=== PATIENT | male | born 1945 | race Caucasian/White ===

== ENCOUNTER 2018-11-29 09:06 | Emergency (ER) | payer OTHER ==
[~2018-11-29] VITALS: Ht 182.9 cm; Wt 75.0 kg
[2018-11-29] MEDS ORDERED: LISI40TA PO (09:26)
[2018-11-29] MEDS ORDERED: AMLO10TA5 PO (09:26)
[2018-11-29] MEDS ORDERED: ATEN100T PO (09:26)
[2018-11-29] MEDS ORDERED: PROAAER10 INH (09:26)
--- NOTE | 2018-11-29 10:10 | REP ---
Clinical: Pain . Technique: AP, lateral, bilateral oblique views left ankle . Findings: No acute fracture or dislocation. Skeletal structures and joint spaces are intact and normal. Ankle mortise appears stable. No subcutaneous emphysema or radiodense foreign body. Impression: Normal age-appropriate left ankle radiograph series. Electronically Signed by Davon Carvajal MD 11/29/2018 10:01 A
--- NOTE | 2018-11-29 10:11 | REP ---
Clinical: Left knee pain. Technique: AP, lateral, bilateral oblique and sunrise views of the left knee. Findings: Age-related osteopenia is appreciated. The tibiofemoral joint space along with the distal femur and proximal tibia appear relatively normal. Lateral and sunrise views demonstrate mild decreased patellofemoral joint space along with superior and lateral marginal spurring of the patella and anterior fraying suggesting mild arthritic changes and early patellar tendinopathy. No effusion. No acute fracture dislocation. Findings: Degenerative changes primarily involving the patella and associated joint space. Electronically Signed by Davon Carvajal MD 11/29/2018 10:03 A
[2018-11-29] MEDS ORDERED: ACETAMINOPHEN 325 MG TAB PO ONE (10:15)
[2018-11-29] MEDS ORDERED: MOBI4TAB PO (10:53)
[2018-11-29 11:01] VITALS: BP 111/55
== END 2018-11-29 11:06 | disposition home or self-care (01) ==
LOC: M ED 09:06
DX: L98.9 Disorder of the skin and subcutaneous tissue, unspecified (principal); M17.12 Unilateral primary osteoarthritis, left knee; I10 Essential (primary) hypertension; J44.9 Chronic obstructive pulmonary disease, unspecified; F17.200 Nicotine dependence, unspecified, uncomplicated; Z79.899 Other long term (current) drug therapy

== ENCOUNTER 2019-01-11 12:25 | Inpatient (IN) | payer OTHER ==
[~2019-01-11] VITALS: Ht 182.9 cm; Wt 71.4 kg
[~2019-01-11 12:25] MED LIST: AMLO10TA5 PO; ATEN100T PO; LISI40TA PO; MOBI4TAB PO; PROAAER10 INH
[2019-01-11] MEDS ORDERED: NS 1,000 ML IV ONE ×2 (12:45→16:30)
[2019-01-11] MEDS ORDERED: TELM1TAB20 PO (12:47)
[2019-01-11] MEDS ORDERED: ATEN100T7 PO (12:47)
[2019-01-11 13:09] LABS: BASO % 0.3 % (0.0-1.0); EOS # 0.1 10^3/uL (0.0-0.50); EOS % 0.4 % (0.0-3.0); HEMATOCRIT 28.7 % (42.0-52.0); HEMOGLOBIN 8.6 g/dl (13.5-17.5); LYMPH # 1.1 10^3/uL (1.5-4.5); LYMPH % 7.9 % (24.0-44.0); MEAN CORPUSCULAR HEMOGLOBIN 24.4 pg (27.0-33.0); MEAN CORPUSCULAR VOLUME 81.5 fl (80.0-96.0); MONO % 6.9 % (0.0-5.0); NEUTROPHILS # 11.5 10^3/uL (1.8-7.7); NEUTROPHILS % 83.5 % (36.0-66.0); PLATELET COUNT, AUTOMATED 534 10^3/uL (150-450); RED BLOOD COUNT 3.52 10^6/uL (4.30-6.10); WHITE BLOOD COUNT 13.8 10^3/uL (4.0-10.0)
[2019-01-11 13:10] LABS: VENOUS BASE EXCESS -0.3 (-2.0-2.0); VENOUS HCO3 25.7 MEQ/L (23.0-27.0); VENOUS PARTIAL PRESSURE CO2 48.5 mmHg (38.0-50.0); VENOUS PARTIAL PRESSURE O2 32.1 mmHg (30.0-50.0); VENOUS PH 7.342 UNITS (7.330-7.430); VENOUS STANDARD HCO3 23.5 MEQ/L; VENOUS TOTAL CO2 27.2 MEQ/L (24.0-28.0)
--- NOTE | 2019-01-11 13:24 | REP ---
Portable chest, two AP semi upright views: Studies performed 12th 56 p.m. There are no comparisons. Lung reyes are hyperinflated. There are no infiltrates. No pleural effusions. There are small nodular densities throughout the lung reyes bilaterally, likely granulomas, however, the absence of comparison studies M unable to document stability, therefore, metastatic disease cannot be entirely dismissed. There is a bulla in the right apex. Cardiac size is normal. The chema, mediastinum, and skeletal structures are unremarkable. Impression: No acute cardiopulmonary findings. Multiple tiny nonspecific lung nodules as described. Right apical bulla. Electronically Signed by J Luis Coates MD 01/11/2019 01:16 P
[2019-01-11 13:50] LABS: ALBUMIN 2.9 GM/DL (3.2-5.2); ALT/SGPT 11 U/L (12-78); BILIRUBIN,DIRECT 0.3 MG/DL (0.0-0.2); BILIRUBIN,TOTAL 0.8 MG/DL (0.2-1.0); BLOOD UREA NITROGEN 21 MG/DL (7-18); CALCIUM LEVEL 8.7 MG/DL (8.8-10.2); CARBON DIOXIDE LEVEL 25 MEQ/L (21-32); CHLORIDE LEVEL 103 MEQ/L (98-107); CK-MB VALUE MASS < 1.0 NG/ML (<3.6); CPK CREATINE PHOSPHOKINASE 25 U/L (39-308); CREATININE FOR GFR 1.68 MG/DL (0.70-1.30); GLOMERULAR FILTRATION RATE 43.1 (>42); GLUCOSE, FASTING 112 MG/DL (70-100); SODIUM LEVEL 138 MEQ/L (136-145); TOTAL PROTEIN 7.2 GM/DL (6.4-8.2); TROPONIN I < 0.02 NG/ML (< 0.10)
[2019-01-11 13:51] LABS: OSMOLALITY SERUM 293 MOSM/KG (280-301)
[2019-01-11] MEDS ORDERED: ONDANSETRON 4MG/2ML VIAL (J2405) IV ONE (14:00)
[2019-01-11] MEDS ORDERED: GLUCAGON FOR INJ 1 MG VIAL (J1610) IV STA (15:12)
--- NOTE | 2019-01-11 16:03 | REP ---
SOFT-TISSUE NECK: 01/11/2019. Clinical history: Evaluate for possible food impaction. Findings: Two lateral and a single AP view were provided. The oropharynx is widely patent. Hypopharynx is patent. The epiglottis and its folds were intact. I see no definite mass or radiopaque food bolus. I do not see subglottic airway narrowing on the lateral view. No significant prevertebral swelling. There is cervical spondylosis of sparing only the C4-5 level. On the frontal view. There is very subtle proximal subglottic narrowing but not seen on the lateral projection. Some minor apical scarring bilaterally in the lung reyes. Impression: 1. Epiglottis and its folds are sharply defined in the hypopharynx, oropharynx and subglottic trachea without significant visible abnormality. No radiopaque food bolus visible. 2. Degenerative disc changes throughout the cervical spine, sparing only the C4-5 level. 3. Incidentally noted are atherosclerotic calcifications in both carotid bulb regions. Electronically Signed by Erich Matthews MD 01/11/2019 07:54 P
[2019-01-11] MEDS ORDERED: E-Z-HD 98% w/w 340GM SUSP BTL As Ordered ONE (16:13)
[2019-01-11] MEDS ORDERED: E-Z-GAS II EFFERVESCENT PACKET (SODIUM BICARB./CITRIC ACID/SIMETHICONE) As Ordered ONE (16:13)
[2019-01-11] MEDS ORDERED: E-Z-PAQUE 96% w/w SUSP 176GM BTL As Ordered ONE (16:13)
[2019-01-11] MEDS ORDERED: D5W/0.45% SODIUM CHLORIDE 1,000 ML IV SCH (18:15)
[2019-01-11 18:24] LABS: CALCIUM LEVEL 7.8 MG/DL (8.8-10.2); CREATININE FOR GFR 1.48 MG/DL (0.70-1.30); GLOMERULAR FILTRATION RATE 49.9 (>42); POTASSIUM SERUM 4.5 MEQ/L (3.5-5.1)
[2019-01-11] MEDS ORDERED: MOBI4TAB PO (18:39)
--- NOTE | 2019-01-11 18:51 | REP ---
Esophagram The procedure was performed under the direct supervision of Dr. Matthews. The images were reviewed with Dr. Matthews. The barium was given in the prone oblique position. The oral and pharyngeal stages of deglutition are unremarkable. In the distal esophagus there is an elongated, tight irregular stricture with food impaction. There is dilated esophagus above this. The stricture measures approximately 6 cm. There is extensive mucosal irregularity below the impaction. Recommend endoscopy for further evaluation. Impression: In the distal esophagus there is an elongated, tight, irregular stricture with food impaction. There is dilated esophagus above this. The stricture measures at least 6 cm. A mucosal lesion must be suspected. There is extensive mucosal irregularity below the impaction. Recommend endoscopy for further evaluation. 1.5 minutes of fluoro time was utilized for this procedure. Reviewed by JUAN RAMON Sandoval 01/11/2019 04:53 P Electronically Signed by Erich Matthews MD 01/11/2019 06:42 P
--- NOTE | 2019-01-11 19:23 | ECGEPIP ---
Stationary ECG Study [facility] - ED Test Date: 2019-01-11 Pat Name: JULEE FRAGA Department: Room: - Gender: M Pest Technician: shaun : 1945 Requested By: JESSICA MACIAS Order Number: [id number] Reading MD: Travon Arenas Measurements Intervals [place] Rate: 77 P: 93 [place]: 183 QRS: 78 QRSD: 108 T: 51 QT: 405 QTc: 458 Interpretive Statements SINUS RHYTHM WITH OCCASIONAL VENTRICULAR PREMATURE COMPLEXES INCOMPLETE RIGHT BUNDLE BRANCH BLOCK ST DEVIATION AND MODERATE T-WAVE ABNORMALITY, CONSIDER ANTERIOR ISCHEMIA NO PRIORS FOR COMPARISON Electronically Signed On 01-11-2019 19:22:58 EDT by Travon Arenas
[2019-01-11] MEDS ORDERED: LIDOCAINE 1% MDV 20ML VIAL As Ordered ONE (19:25)
[2019-01-11] MEDS ORDERED: SUCCINYLCHOLINE 100 MG/5 ML SYRINGE (J0330) As Ordered ONE (19:44)
[2019-01-11] MEDS ORDERED: fentaNYL 100 MCG/2 ML INJECTION (J3010) As Ordered ONE (19:44)
[2019-01-11] MEDS ORDERED: LIDOCAINE 2% INJ 100 MG/5 ML SDV (FOR ANES.) As Ordered ONE (19:44)
[2019-01-11] MEDS ORDERED: PROPOFOL 200 MG/20 ML VIAL As Ordered ONE (19:44)
[2019-01-11] MEDS ORDERED: dexameTHASONE 4 MG/ML 1ML VIAL (J1100) As Ordered ONE (19:44)
[2019-01-11] MEDS ORDERED: ALBUTEROL 90 MCG/ACT 8GM HFA INHALER INH PRN (19:45)
[2019-01-11] MEDS ORDERED: ePHEDrine SULFATE 25 MG/5 ML(5MG/ML) SYRINGE As Ordered ONE (19:52)
[2019-01-11] MEDS ORDERED: ONDANSETRON 4MG/2ML VIAL (J2405) As Ordered ONE (19:54)
[2019-01-11] MEDS ORDERED: LR 1,000 ML IV SCH (20:30)
[2019-01-11] MEDS ORDERED: ONDANSETRON 4MG/2ML VIAL (J2405) IV PRN (20:30)
[2019-01-11] MEDS ORDERED: fentaNYL 100 MCG/2 ML INJECTION (J3010) IV PRN (20:30)
--- NOTE | 2019-01-11 21:05 | HPE ---
DATE OF ADMISSION: 01/11/2019 A 73-year-old male with past medical history of longstanding left gluteal mass, history of hypertension, non-oxygen dependent chronic obstructive pulmonary disease (COPD) presents to the emergency room after being noted to be hypotensive, systolic in the 60s, by his [facility] visiting [facility] today. Patient did mention that he has been having vertigo for the last 2 days as well, but the visit was routine only. In the emergency room (ER) he was noted to have systolic as well in the 60s. Was given a total of 2.5 liters of normal saline, and now his blood pressure is improved to 111/55. He does not have any chest pain, shortness of breath. No abdominal pain, nausea, vomiting, or vertigo at this time. He also mentioned that in the past 3 days he has had sudden onset of difficulty swallowing solid foods. He felt like it was sticking in his chest, although liquids have been okay as far as his swallowing is concerned. Dr. Kebede plans to take the patient to the operating room (OR) this evening for esophagogastroduodenoscopy (EGD) to be done due to the CT scan report of possible esophageal mass in the distal esophagus as well as a biopsy of the left gluteal mass. Patient at this time is not hypoxic. He is 98% on room air, and h is blood pressure is stable. He will be admitted for further management. PAST MEDICAL HISTORY: 1. Hypertension. 2. History of chronic active tobacco abuse. 3. Non-oxygen dependent COPD. 4. Longstanding left gluteal mass. ALLERGIES: No known drug allergies. FAMILY HISTORY: Noncontributory. SOCIAL HISTORY: Patient smokes between a pack and a pack and a half a day for many years. Denies alcohol or illicit drugs. HOME MEDICATIONS: - albuterol 10 as needed - atenolol 100 mg orally daily - chlorthalidone 25 mg orally daily - lisinopril 40 mg orally daily - meloxicam 15 mg orally daily - telmisartan 40 mg orally daily - amlodipine 10 mg orally daily REVIEW OF SYSTEMS: Negative for [id number] systems except what is mentioned in the history of present illness (HPI). VITAL SIGNS: Blood pressure 111/55, heart rate is 74, regular, respiratory rate is 18, temperature is 97, oxygen saturation 97% on room air. HEAD: Atraumatic, normocephalic. NECK: Supple. No jugular venous distention (JVD). LUNGS: Clear to auscultation. HEART: S1, S2 audible. No murmurs appreciated. ABDOMEN: Soft. Positive bowel sounds. No pedal edema. SKIN: Intact. NEUROLOGIC: Patient awake, alert, oriented times three. LABORATORY DATA: WBC 13.8, hemoglobin is 8.6, hematocrit 28.7, platelets are 534,000. Sodium is 140, potassium 4.5, chloride 110, CO2 is 23, BUN 24, creatinine is 1.48. Initially his BUN and creatinine when he came were 21 and 1.68. Glucose is 95. Lactic acid is 1.3. AST 5, ALT is 11. Troponin is less than 0.02. Albumin is 2.9. TSH is 1.070. IMPRESSION: 1. Hypotension. 2. Esophageal mass. 3. Dysphagia. 4. Left gluteal mass. 5. Acute kidney injury (GUALBERTO). PLAN: Patient is to be admitted to progressive care unit (PCU). Will keep him nothing by mouth and continue him on normal saline at 125 mL an hour. Patient will be going to the OR for biopsy of his left gluteal mass and EGD to discover what this stricture versus mass in the distal esophagus is all about. As far as his hypotension is concerned, at this time etiology is unknown, but it did resolve and respond very well with fluids. I will continue the IV fluids for now. As far as GUALBERTO is concerned, likely most of this is prerenal in origin, because he has not been able to eat or drink much in the last 3 days; however, we do not have a baseline, but there is marked improvement of his creatinine from 1.68 to 1.48 with just 2.5 liters of fluid. Will monitor BUN and creatinine trends. Will continue his preadmission medications but will hold them for now due to his hypotension.
[2019-01-11 21:19] VITALS: BP 102/57
[2019-01-11] MEDS: NS 1,000 ML IV SCH (22:07)
[2019-01-11] MEDS ORDERED: PERCOCET 5MG/325MG TAB PO ONE (22:15)
[2019-01-12] VITALS (7 sets, daily range): BP systolic 96–117; BP diastolic 54–59
[2019-01-12] MEDS: NS 1,000 ML IV SCH (04:00)
[2019-01-12 04:29] LABS: BASO % 0.1 % (0.0-1.0); HEMOGLOBIN 7.6 g/dl (13.5-17.5); LYMPH # 0.6 10^3/uL (1.5-4.5); LYMPH % 6.4 % (24.0-44.0); MEAN CORPUSCULAR HEMOGLOBIN 24.5 pg (27.0-33.0); MEAN CORPUSCULAR HGB CONC 30.4 g/dl (32.0-36.5); MEAN CORPUSCULAR VOLUME 80.6 fl (80.0-96.0); MONO # 0.1 10^3/uL (0.0-0.8); NEUTROPHILS # 7.9 10^3/uL (1.8-7.7); NEUTROPHILS % 91.8 % (36.0-66.0); WHITE BLOOD COUNT 8.6 10^3/uL (4.0-10.0)
[2019-01-12 04:53] LABS: PLATELET COUNT, AUTOMATED 417 10^3/uL (150-450)
[2019-01-12 05:00] LABS: ALBUMIN 2.3 GM/DL (3.2-5.2); ALT/SGPT 8 U/L (12-78); BILIRUBIN,TOTAL 0.3 MG/DL (0.2-1.0); BLOOD UREA NITROGEN 23 MG/DL (7-18); CALCIUM LEVEL 7.8 MG/DL (8.8-10.2); CARBON DIOXIDE LEVEL 26 MEQ/L (21-32); CHLORIDE LEVEL 107 MEQ/L (98-107); CREATININE FOR GFR 1.19 MG/DL (0.70-1.30); GLOMERULAR FILTRATION RATE > 60.0 (>42); GLUCOSE, FASTING 187 MG/DL (70-100); POTASSIUM SERUM 4.5 MEQ/L (3.5-5.1); SODIUM LEVEL 138 MEQ/L (136-145); TOTAL PROTEIN 6.7 GM/DL (6.4-8.2)
[2019-01-12] MEDS ORDERED: ATENOLOL 50 MG TAB PO SCH (09:00)
[2019-01-12] MEDS ORDERED: CHLORTHALIDONE 25 MG TAB PO SCH (09:00)
[2019-01-12] MEDS ORDERED: amLODIPine 10 MG TAB PO SCH (09:00)
[2019-01-12] MEDS ORDERED: TELMISARTAN 20 MG TAB PO SCH (09:00)
--- NOTE | 2019-01-12 09:52 | RO ---
DATE OF PROCEDURE: 01/11/2019 PREOPERATIVE DIAGNOSIS: Esophageal stricture. Esophageal food impaction. Left hip lesion. POSTOPERATIVE DIAGNOSIS: Esophageal stricture. Esophageal food impaction. Left thigh lesion. PROCEDURE: Esophageal gastroduodenoscopy with removal of food impaction. Esophageal biopsy. Incisional biopsy of left thigh lesion. SURGEON: Dr. J Luis Kebede JUNIOR MEDIA BUYER: None. ANESTHESIA: General. COMPLICATIONS: None. INDICATION FOR PROCEDURE: The patient is a 73-year-old male with a history of a large lesion on the left thigh who was supposed to have a biopsy completed by me in the office next week, however, he developed some difficulty swallowing that started yesterday. He was unable to tolerate anything, even liquids, so he went to the emergency room for evaluation. They did a barium swallow earlier today showing that there was distal esophageal stricture as well as some food retained in the esophagus. Therefore, recommendation was to proceed with EGD with removal of the food impaction and we decided to do his biopsy of his leg at the same time. The risks and benefits of the procedure not limited to, but including bleeding, infection, damage to surrounding structures and need for further surgery were discussed in detail with the patient and informed consent was obtained. DESCRIPTION OF PROCEDURE: Patient was brought back to operating room eight after sufficient sedation. A time out was done to confirm proper patient and proper procedure. Following that, endoscope was passed down through the esophagus, noting some small amount of food particles in there, but I was able to pass the scope all the way into the stomach without any restriction. On exam of the stomach, passed the scope down into the duodenum. There were no signs of any masses or injury of any sort. I slowly retracted the scope back up into the esophagus. The distal esophagus was slightly erythematous. Biopsies were taken. The esophagus was slightly strictured and very hardened of the internal lining. It was very difficult to obtain a biopsy from. I retracted the scope a little bit farther up into the mid esophagus. There were food contents noted along both sides of the esophagus adhered to the novak. No signs of any obvious masses or strictures, just very abnormal thickening of the lining of the esophagus. The scope was then brought back. The food particles that were left in there were carefully irrigated and passed back down into the stomach and then the scope was removed ending that portion of the procedure. Next, the left leg was prepped with Betadine. 5 mL of local was injected around the most superior portion of the lesion. A 15 blade scalpel was then used to make a 2.5 cm elliptical incision encompassing half of the lesion and half normal tissue. That specimen was removed. The incision was closed with interrupted #2-0 nylon sutures. The area was covered with 4x4 and tape, thus ending the procedure. The patient tolerated the procedure well and was sent to the recovery room in stable condition. He will be admitted and monitored overnight and started on a clear liquid diet.
--- NOTE | 2019-01-12 10:08 | IPNPDOC ---
Text Note Date of Service The patient was seen on 01/12/19. NOTE No acute events overnight. He is tolerating clq diet without any problems. No coughing or choking. VSSAF NAD abd - soft, nt, nd skin - dressing c/d/i pathology pending labs - see below A) 73y/o male s/p EGD with removal of impacted food, esophageal biopsy, and biopsy of large left leg lesion P) reg diet take small bites, and drink lots of liquid while eating monitor hgb, he could be oozing blood from the esophageal biopsy site because it was too thick to place clips on. stable for dc once hgb is stable Ty Kebede DO VS,Fishbone, I+O VS, Fishbone, I+O Laboratory Tests 01/11/19 12:53 Red Blood Count 3.52 L, Mean Corpuscular Volume 81.5, Mean Corpuscular Hemoglobin 24.4 L, Mean Corpuscular Hemoglobin Concent 30.0 L, Red Cell Distribution Width 16.9 H, Neutrophils (%) (Auto) 83.5 H, Lymphocytes (%) (Auto) 7.9 L, Monocytes (%) (Auto) 6.9 H, Eosinophils (%) (Auto) 0.4, Basophils (%) (Auto) 0.3, Neutrophils # (Auto) 11.5 H, Lymphocytes # (Auto) 1.1 L, Monocytes # (Auto) 1.0 H, Eosinophils # (Auto) 0.1, Basophils # (Auto) 0.0 01/11/19 17:55 Calcium Level 7.8 L 01/12/19 03:59 Red Blood Count 3.10 L, Mean Corpuscular Volume 80.6, Mean Corpuscular Hemoglobin 24.5 L, Mean Corpuscular Hemoglobin Concent 30.4 L, Red Cell Distribution Width 16.7 H, Neutrophils (%) (Auto) 91.8 H, Lymphocytes (%) (Auto) 6.4 L, Monocytes (%) (Auto) 1.0, Eosinophils (%) (Auto) 0.0, Basophils (%) (Auto) 0.1, Neutrophils # (Auto) 7.9 H, Lymphocytes # (Auto) 0.6 L, Monocytes # (Auto) 0.1, Eosinophils # (Auto) 0.0, Basophils # (Auto) 0.0, Calcium Level 7.8 L, Aspartate Amino Transf (AST/SGOT) 4 L, Alanine Aminotransferase (ALT/SGPT) 8 L, Alkaline Phosphatase 61, Total Bilirubin 0.3 #, Total Protein 6.7, Albumin 2.3 #L Vital Signs Date Time Temp Pulse Resp B/P (MAP) Pulse Ox O2 Delivery O2 Flow Rate FiO2 01/12/19 07:33 99.1 74 18 110/55 (73) 93 01/11/19 19:00 Room Air I&O- Last 24 Hours up to 6 AM 01/12/19 06:00 Intake Total 3410 ml Output Total 180 ml Balance 3230 ml ROX KEBEDE DO Jan 12, 2019 10:08
[2019-01-12 12:14] LABS: HEMATOCRIT 26.7 % (42.0-52.0); HEMOGLOBIN 8.1 g/dl (13.5-17.5)
[2019-01-12 13:40] LABS: INR 1.2; PROTHROMBIN TIME 15.4 SECONDS (12.1-14.4)
--- NOTE | 2019-01-12 15:08 | NUR ---
Pt seen this date for swallow evaluation following evacuation of food bolus from distal esophagus. Swallow is adequate. Recommend: mechanical soft solids with thin liquids. Small bites. Chew foods thoroughly. Use extra sauces/gravies/condiments. Drink frequently throughout meal. Follow up after regular meal to assess tolerance. Addendum: 01/12/19 at 1511 by JULEE SAINZ CHARITO Amended: Links added.
--- NOTE | 2019-01-12 16:58 | IPNPDOC ---
Text Note Date of Service The patient was seen on 01/12/19. NOTE Subjective: Patient is a 73-year-old male with a PMHx of HTN, COPD (not on O2), Hx of Left gluteal mass / rash (ongoing for >1 year), Active tobacco abuse who presented to the ER after he was found to be hypotensive in the 60s by [facility] visiting [facility]. patient had also indicated that he was having difficulty swallowing and had a feeling of food getting stuck in his chest. In the emergency room, patient received imaging which is consistent with a stricture with food impaction lower portion of his esophagus. Dr. Kebede of General surgery was called on consultation. Patient was admitted to the hospitalist service for further evaluation and treatment. Patient was seen and examined at the bedside. Patient was seen post EGD and had removal of a food impaction and had several biopsies taken of the area. Patient also had biopsies of his left gluteal mass for which she has not eaten any attention for more than one year. Currently, he denies any chest pain, difficulty breathing, nausea or vomiting. Denies any cough. Denies abdominal pain, constipation, diarrhea or any discomfort with urination. Objective: Vitals (See below) General: Lying in bed, no acute distress, comfortable, AAOx3 HEENT: NC, AT CVS: RRR, +S1S2 Lungs: Fair air entry b/l, -w/r/r Abdomen: Soft, ND, NT Extremities: - Edema, - Calf tenderness Assessment and plan: s/p Hypotension - possibly 2/2 medications and hypovolemia, unlikely 2/2 infection - Patient's blood pressure has responded appropriately to IV fluids - Leukocytosis has resolved, no lactic acidosis - His oral antihypertensive medications have been discontinued - Will continue to hold anti-hypertensive medications Esophageal lesion - Esophageal XR 01/11: In the distal esophagus there is an elongated, tight, irregular stricture with food impaction. There is dilated esophagus above this. The stricture measures at least 6 cm. A mucosal lesion must be suspected. There is extensive mucosal irregularity below the impaction. Recommend endoscopy for further evaluation. - Neck XR 01/11: 1. Epiglottis and its folds are sharply defined in the hypopharynx, oropharynx and subglottic trachea without significant visible abnormality. No radiopaque food bolus visible. 2. Degenerative disc changes throughout the cervical spine, sparing only the C4-5 level. 3. Incidentally noted are atherosclerotic calcifications in both carotid bulb regions. - CXR 01/11: No acute cardiopulmonary findings. Multiple tiny nonspecific lung nodules as described. Right apical bulla. - EGD has been completed by Dr. Kebede; food impaction has been removed and lower esophagus has been biopsied - Awaiting pathology results - Speech and swallow evaluation; advance based on surgery recommendations s/p Acute kidney injury - Unsure of patient's baseline creatinine - Cr on admission of 1.68; has trended down with IV fluid hydration Normocytic anemia - likely 2/2 dilutional etiology - Patient has not had any significant bleeding - Will check iron panel, b12 and folate - Discussed potential transfusion with patient; advised that he would like to hold off on transfusions if possible - Will continue to trend H&H - Will DC IV fluids COPD (not on O2) - No evidence of exacerbation - c/w inhaled therapy as ordered Hx of Left gluteal mass / rash (ongoing for >1 year) - Left gluteal mass has been biopsied by surgery - Awaiting pathology Active tobacco abuse - Advised smoking cessation DVT prophylaxis - c/w TEDs and Sequentials 1. Hypotension. 2. Esophageal mass. 3. Dysphagia. 4. Left gluteal mass. 5. Acute kidney injury (GUALBERTO). VS,Fishbone, I+O VS, Fishbone, I+O Laboratory Tests 01/11/19 17:55 Calcium Level 7.8 L 01/12/19 03:59 Calcium Level 7.8 L, Red Blood Count 3.10 L, Mean Corpuscular Volume 80.6, Mean Corpuscular Hemoglobin 24.5 L, Mean Corpuscular Hemoglobin Concent 30.4 L, Red Cell Distribution Width 16.7 H, Neutrophils (%) (Auto) 91.8 H, Lymphocytes (%) (Auto) 6.4 L, Monocytes (%) (Auto) 1.0, Eosinophils (%) (Auto) 0.0, Basophils (%) (Auto) 0.1, Neutrophils # (Auto) 7.9 H, Lymphocytes # (Auto) 0.6 L, Monocytes # (Auto) 0.1, Eosinophils # (Auto) 0.0, Basophils # (Auto) 0.0, Aspartate Amino Transf (AST/SGOT) 4 L, Alanine Aminotransferase (ALT/SGPT) 8 L, Alkaline Phosphatase 61, Total Bilirubin 0.3 #, Total Protein 6.7, Albumin 2.3 #L 01/12/19 12:00 Vital Signs Date Time Temp Pulse Resp B/P (MAP) Pulse Ox O2 Delivery O2 Flow Rate FiO2 01/12/19 16:00 98.2 71 16 117/56 (76) 94 01/11/19 19:00 Room Air I&O- Last 24 Hours up to 6 AM 01/12/19 06:00 Intake Total 3410 ml Output Total 180 ml Balance 3230 ml RADHA MARION MD Jan 12, 2019 16:58
[2019-01-12] MEDS ORDERED: WARFARIN SOD 5 MG TAB PO ONE (17:00)
[2019-01-12 18:00] LABS: HEMATOCRIT 26.5 % (42.0-52.0); HEMOGLOBIN 8.1 g/dl (13.5-17.5)
[2019-01-12 18:26] LABS: PERCENT SATURATION 8.2 % (19.7-50.0)
[2019-01-12 18:34] LABS: FOLATE 3.2 NG/ML (>5.4)
[2019-01-12] MEDS ORDERED: diphenhydrAMINE 25 MG CAP PO ONE (20:45)
[2019-01-13] VITALS: BP 113/53
[2019-01-13 04:00] VITALS: BP 119/58
[2019-01-13 05:12] LABS: BASO % 0.2 % (0.0-1.0); EOS # 0.1 10^3/uL (0.0-0.50); EOS % 0.5 % (0.0-3.0); HEMATOCRIT 28.2 % (42.0-52.0); HEMOGLOBIN 8.4 g/dl (13.5-17.5); LYMPH # 1.9 10^3/uL (1.5-4.5); LYMPH % 20.5 % (24.0-44.0); MEAN CORPUSCULAR HEMOGLOBIN 24.1 pg (27.0-33.0); MEAN CORPUSCULAR HGB CONC 29.8 g/dl (32.0-36.5); MEAN CORPUSCULAR VOLUME 80.8 fl (80.0-96.0); MONO # 0.6 10^3/uL (0.0-0.8); MONO % 6.7 % (0.0-5.0); NEUTROPHILS # 6.5 10^3/uL (1.8-7.7); NEUTROPHILS % 71.4 % (36.0-66.0); PLATELET COUNT, AUTOMATED 432 10^3/uL (150-450); RED BLOOD COUNT 3.49 10^6/uL (4.30-6.10); WHITE BLOOD COUNT 9.1 10^3/uL (4.0-10.0)
[2019-01-13 05:42] LABS: BLOOD UREA NITROGEN 16 MG/DL (7-18); CARBON DIOXIDE LEVEL 25 MEQ/L (21-32); CHLORIDE LEVEL 109 MEQ/L (98-107); CREATININE FOR GFR 0.86 MG/DL (0.70-1.30); GLOMERULAR FILTRATION RATE > 60.0 (>42); GLUCOSE, FASTING 102 MG/DL (70-100); MAGNESIUM LEVEL 1.9 MG/DL (1.8-2.4); POTASSIUM SERUM 3.9 MEQ/L (3.5-5.1); SODIUM LEVEL 139 MEQ/L (136-145)
[2019-01-13 08:00] VITALS: BP 140/62
[2019-01-13] MEDS ORDERED: FOLI1TAB11 PO (08:50)
[2019-01-13] MEDS ORDERED: FERR5MLUD PO (08:50)
[2019-01-13] MEDS ORDERED: FOLIC ACID 1 MG TAB PO SCH (09:00)
[2019-01-13] MEDS ORDERED: FERROUS SULFATE 300MG/5ML UDC LIQUID PO SCH (09:00)
--- NOTE | 2019-01-13 12:01 | DS.PDOC ---
Discharge Summary General Date of Admission Jan 11, 2019 at 19:43 Date of Discharge 01/13/2019 Discharge Summary PROCEDURES PERFORMED DURING STAY: Esophageal gastroduodenoscopy with removal of food impaction with Esophageal biopsy by Dr. Kebede on 01/11/2019 Left Gluteal mass incisional biopsy of left thigh lesion by Dr. 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 patient had also indicated that he was having difficulty swallowing and had a feeling of food getting stuck in his chest. In the emergency room, patient received imaging which is consistent with a stricture with food impaction lower portion of his esophagus. Dr. Kebede of General surgery was called on consultation. Patient was admitted to the hospitalist service for further evaluation and treatment. HOSPITAL COURSE: s/p Hypotension - possibly 2/2 medications and hypovolemia, unlikely 2/2 infection - Patient's blood pressure has responded appropriately to IV fluids - Leukocytosis has resolved, no lactic acidosis - His oral antihypertensive medications have been discontinued - Will continue to hold anti-hypertensive medications - Upon discharge patient will be discontinuing all antihypertensive medications given his significant weight loss - Will have outpatient follow-up with primary care provider for adjustment of blood pressure regimen Esophageal lesion - Esophageal XR 01/11: In the distal esophagus there is an elongated, tight, irregular stricture with food impaction. There is dilated esophagus above this. The stricture measures at least 6 cm. A mucosal lesion must be suspected. There is extensive mucosal irregularity below the impaction. Recommend endoscopy for further evaluation. - Neck XR 01/11: 1. Epiglottis and its folds are sharply defined in the hypo pharynx, oropharynx and subglottic trachea without significant visible abnormality. No radiopaque food bolus visible. 2. Degenerative disc changes throughout the cervical spine, sparing only the C4-5 level. 3. Incidentally noted are atherosclerotic calcifications in both carotid bulb regions. - CXR 01/11: No acute cardiopulmonary findings. Multiple tiny nonspecific lung nodules as described. Right apical bulla. - EGD has been completed by Dr. Kebede; food impaction has been removed and lower esophagus has been biopsied - Awaiting pathology results - Speech and swallow evaluation; advance based on surgery recommendations - Has been cleared by surgery for discharge; will have outpatient follow-up for biopsy results s/p Acute kidney injury - Unsure of patient's baseline creatinine - Cr on admission of 1.68; has trended down with IV fluid hydration Normocytic anemia - Patient has not had any significant bleeding - Folate and Iron levels low - Discussed potential transfusion with patient; advised that he would like to hold off on transfusions if possible - Hg has remained stable - Will DC IV fluids - We'll start supplementation and continue upon discharge COPD (not on O2) - No evidence of exacerbation - c/w inhaled therapy as ordered Hx of Left gluteal mass / rash (ongoing for >1 year) - Left gluteal mass has been biopsied by surgery - Awaiting pathology; we'll have outpatient follow-up with Dr. Kebede Active tobacco abuse - Advised smoking cessation DVT prophylaxis - c/w TEDs and Sequentials DISCHARGE MEDICATIONS: Please see below. ALLERGIES: Please see below. PHYSICAL EXAMINATION ON DISCHARGE: Vitals (See below) General: Lying in bed, no acute distress, comfortable, AAOx3 HEENT: NC, AT CVS: RRR, +S1S2 Lungs: Fair air entry b/l, no evidence of wheezing, rhonchi or rales. Upon auscultation Abdomen: Soft, nondistended and nontender Extremities: No evidence of edema, - Calf tenderness Skin: Left gluteal mass/ skin lesion; atypical borders; indentation and pitting; proximal area with biopsy and stitches in place; nontender, nonbleeding, no evidence of infection LABORATORY DATA: Please see below. ACTIVITY: [As tolerated]. DIET: Mechanical soft solids with thin liquids. Small bites. Chew foods thoroughly. Use extra sauces/gravies/condiments. Drink frequently throughout meal. DISCHARGE PLAN: Follow up with PCP and Dr. Kebede within 7 days Remain compliant with treatment plan and medications Return to the ER if you experience any problems DISPOSITION: Home, Self-Care. DISCHARGE CONDITION: [Stable]. TIME SPENT ON DISCHARGE: Greater than [35] minutes. Vital Signs/I&Os Vital Signs Date Time Temp Pulse Resp B/P (MAP) Pulse Ox O2 Delivery O2 Flow Rate FiO2 01/13/19 08:00 98.1 74 18 140/62 (88) 96 01/11/19 19:00 Room Air I&O- Last 24 Hours up to 6 AM 01/13/19 06:00 Intake Total 2360 ml Output Total 2025 ml Balance 335 ml Laboratory Data Labs 24H Laboratory Tests 2 01/12/19 13:08: Prothrombin Time 15.4H, Prothromb Time International Ratio 1.20 01/12/19 17:47: Iron Level 17L, Total Iron Binding Capacity 208L, Transferrin % Saturation 8.2L, Ferritin 114, Vitamin B12 Level 451, Folate 3.2L 01/13/19 04:37: Immature Granulocyte % (Auto) 0.7, White Blood Count 9.1, Red Blood Count 3.49L, Hemoglobin 8.4L, Hematocrit 28.2L, Mean Corpuscular Volume 80.8, Mean Corpuscular Hemoglobin 24.1L, Mean Corpuscular Hemoglobin Concent 29.8L, Red Cell Distribution Width 16.6H, Platelet Count 432, Neutrophils (%) (Auto) 71.4H, Lymphocytes (%) (Auto) 20.5L, Monocytes (%) (Auto) 6.7H, Eosinophils (%) (Auto) 0.5, Basophils (%) (Auto) 0.2, Neutrophils # (Auto) 6.5, Lymphocytes # (Auto) 1.9, Monocytes # (Auto) 0.6, Eosinophils # (Auto) 0.1, Basophils # (Auto) 0.0, Nucleated Red Blood Cells % (auto) 0.0, Anion Gap 5L, Glomerular Filtration Rate > 60.0, Blood Urea Nitrogen 16, Creatinine 0.86, Sodium Level 139, Potassium Level 3.9, Chloride Level 109H, Carbon Dioxide Level 25, Calcium Level 8.0L, Magnesium Level 1.9 CBC/BMP Laboratory Tests 01/12/19 12:00 01/12/19 17:47 01/13/19 04:37 Red Blood Count 3.49 L, Mean Corpuscular Volume 80.8, Mean Corpuscular Hemoglobin 24.1 L, Mean Corpuscular Hemoglobin Concent 29.8 L, Red Cell Distribution Width 16.6 H, Neutrophils (%) (Auto) 71.4 H, Lymphocytes (%) (Auto) 20.5 L, Monocytes (%) (Auto) 6.7 H, Eosinophils (%) (Auto) 0.5, Basophils (%) (Auto) 0.2, Neutrophils # (Auto) 6.5, Lymphocytes # (Auto) 1.9, Monocytes # (Auto) 0.6, Eosinophils # (Auto) 0.1, Basophils # (Auto) 0.0, Calcium Level 8.0 L Microbiology Microbiology 01/11/19 Blood Culture - Preliminary, Resulted No growth after 24 hours . All specim... 01/11/19 Blood Culture - Preliminary, Resulted No growth after 24 hours . All specim... Discharge Medications Scheduled Ferrous Sulfate (Ferrous Sulfate) 300 Mg/5 Ml Liq, 300 MG PO BID Folic Acid (Folic Acid) 1 Mg Tab, 1 MG PO DAILY Meloxicam (Mobic) 7.5 Mg Tab, 15 MG PO DAILY, (Reported) Scheduled PRN Albuterol Sulfate (Proair Hfa) 108 Mcg/Act Aer, 2 PUFF INH Q4H PRN for WHEEZING, (Reported) Allergies Coded Allergies: No Known Allergies (Unverified , 05/19/15) RADHA MARION MD Jan 13, 2019 12:01
== END 2019-01-13 10:00 | disposition home or self-care (01) | DRG 312 ==
LOC: EDBD 12:25 → M ED 12:25 → M SDC 18:54 → M OR 19:43 → M ICU 21:22
PROVIDERS: ADMIT Internal Medicine; ATTEND Internal Medicine
PROC: 0DB38ZX Excision of Lower Esophagus, Via Natural or Artificial Opening Endoscopic, Diagnostic (ICD-10-PCS; principal; 2019-01-11 21:00)
PROC: 0HBJXZX Excision of Left Upper Leg Skin, External Approach, Diagnostic (ICD-10-PCS; 2019-01-11 21:00)
DX: I95.2 Hypotension due to drugs (principal); N17.9 Acute kidney failure, unspecified; R13.10 Dysphagia, unspecified; R42 Dizziness and giddiness; I10 Essential (primary) hypertension; L72.0 Epidermal cyst; K22.8 Other specified diseases of esophagus; J44.9 Chronic obstructive pulmonary disease, unspecified; D64.9 Anemia, unspecified; F17.210 Nicotine dependence, cigarettes, uncomplicated; Z79.1 Long term (current) use of non-steroidal anti-inflammatories (NSAID); Z79.899 Other long term (current) drug therapy

== ENCOUNTER 2019-01-27 14:39 | Inpatient (IN) | payer OTHER ==
[~2019-01-27] VITALS: Ht 182.9 cm; Wt 72.0 kg
[~2019-01-27 14:39] MED LIST changes: +ATEN100T7 PO; +FERR5MLUD PO; +FOLI1TAB11 PO; +TELM1TAB20 PO
[2019-01-27] MEDS ORDERED: IPRATROPIUM 0.5MG/ALBUTEROL 2.5MG INH SOL UD 3ML (DUONEB)(J7620) NEB ONE (15:15)
[2019-01-27] MEDS ORDERED: ALBUTEROL SULFATE 2.5 MG/0.5 ML INH NEB SOLN INH PRN (15:15)
[2019-01-27 15:37] LABS: BASO % 0.4 % (0.0-1.0); EOS % 0.4 % (0.0-3.0); HEMATOCRIT 30.1 % (42.0-52.0); HEMOGLOBIN 9.2 g/dl (13.5-17.5); LYMPH # 0.6 10^3/uL (1.5-4.5); LYMPH % 6.3 % (24.0-44.0); MEAN CORPUSCULAR HEMOGLOBIN 24.6 pg (27.0-33.0); MEAN CORPUSCULAR HGB CONC 30.6 g/dl (32.0-36.5); MEAN CORPUSCULAR VOLUME 80.5 fl (80.0-96.0); MONO # 0.5 10^3/uL (0.0-0.8); NEUTROPHILS % 87.5 % (36.0-66.0); PLATELET COUNT, AUTOMATED 336 10^3/uL (150-450); RED BLOOD COUNT 3.74 10^6/uL (4.30-6.10); WHITE BLOOD COUNT 9.2 10^3/uL (4.0-10.0)
--- NOTE | 2019-01-27 15:37 | REP ---
Clinical: Cough and dyspnea . Comparison: 01/11/2019 . Findings: The mediastinum and cardiac silhouette are stable and within normal limits for portable technique. The lung reyes demonstrate chronic-appearing changes without acute consolidation, effusion, or pneumothorax. Skeletal structures are intact. Impression: Chronic-appearing changes. No obvious acute cardiopulmonary process. Electronically Signed by Davon Carvajal MD 01/27/2019 03:30 P
[2019-01-27 15:47] LABS: INR 1.05; PROTHROMBIN TIME 13.8 SECONDS (12.1-14.4)
[2019-01-27 16:01] LABS: ALBUMIN 2.6 GM/DL (3.2-5.2); ALT/SGPT 8 U/L (12-78); BILIRUBIN,DIRECT 0.1 MG/DL (0.0-0.2); BILIRUBIN,TOTAL 0.5 MG/DL (0.2-1.0); BLOOD UREA NITROGEN 83 MG/DL (7-18); CARBON DIOXIDE LEVEL 15 MEQ/L (21-32); CHLORIDE LEVEL 101 MEQ/L (98-107); CPK CREATINE PHOSPHOKINASE 153 U/L (39-308); GLOMERULAR FILTRATION RATE 2.9 (>42); GLUCOSE, FASTING 61 MG/DL (70-100); NT-PRO BNP 4013 PG/ML (<125); POTASSIUM SERUM 7.7 MEQ/L (3.5-5.1); SODIUM LEVEL 133 MEQ/L (136-145); TOTAL PROTEIN 6.9 GM/DL (6.4-8.2); TROPONIN I < 0.02 NG/ML (< 0.10)
[2019-01-27] MEDS ORDERED: DEXTROSE 50% 50 ML SYRINGE IV STA ×2 (16:11→19:41)
[2019-01-27] MEDS ORDERED: SODIUM BICARBONATE 8.4% INJ 50 ML SYRINGE IV STA (16:13)
[2019-01-27] MEDS ORDERED: INSULIN IV RATE CHANGE DOCUMENTATION ML/HR XX SCH (16:15)
[2019-01-27] MEDS ORDERED: D5W/0.9% SODIUM CHLORIDE 1,000 ML IV ONE (16:15)
[2019-01-27] MEDS ORDERED: HumuLIN R (REGULAR) INSULIN (NovoLIN R) **100U/ML** PER UNIT IV ONE (16:15)
[2019-01-27] MEDS ORDERED: CALCIUM GLUCONATE 1,000 MG in D5W MINI-BAG PLUS 100 ML IV ONE (16:15)
[2019-01-27] MEDS ORDERED: D5W/0.45% SODIUM CHLORIDE 1,000 ML IV SCH (16:15)
[2019-01-27] MEDS ORDERED: INSULIN HUMAN REGULAR 100 UNITS in NS 99 ML IV SCH (16:15)
[2019-01-27 16:28] LABS: INFLUENZA A AMPLIFICATION NEGATIVE (NEGATIVE); INFLUENZA B AMPLIFICATION NEGATIVE (NEGATIVE)
[2019-01-27] MEDS ORDERED: LIDOCAINE 2% 5ML JELLY UROJET TOP ONE (16:45)
[2019-01-27 16:54] LABS: ABG BASE EXCESS -12.3 (-2.0-2.0); ABG HCO3 12.2 MEQ/L (22.0-26.0); ABG O2 SATURATION 94.1 % (95.0-99.0); ABG PARTIAL PRESSURE CO2 23.8 mmHg (35.0-45.0); ABG PARTIAL PRESSURE O2 85.2 mmHg (75.0-100.0); ABG STANDARD HCO3 14.6 MEQ/L (22.0-26.0); ABG pH (ARTERIAL) 7.329 UNITS (7.350-7.450)
[2019-01-27] MEDS ORDERED: PATIROMER SORBITEX CALCIUM 8.4 GM POWDER PACKET (VELTASSA) PO ONE (17:00)
[2019-01-27] MEDS ORDERED: NS 1,000 ML IV SCH (17:02)
[2019-01-27] MEDS ORDERED: FOLI1TAB11 PO (17:22)
[2019-01-27] MEDS ORDERED: FERR5MLUD PO (17:22)
[2019-01-27 17:28] LABS: APPEARANCE, URINE CLEAR (CLEAR); BACTERIA, URINE AUTO NEGATIVE (NEGATIVE); BILIRUBIN, URINE AUTO NEGATIVE (NEGATIVE); BLOOD, URINE BLOOD 2+ (NEGATIVE); COLOR, URINE YELLOW (YELLOW); GLUCOSE, URINE (UA) AUTO NEGATIVE (NEGATIVE); KETONE, URINE AUTO NEGATIVE (NEGATIVE); LEUKOCYTE ESTERASE, URINE AUTO NEGATIVE (NEGATIVE); MUCUS, URINE SMALL (NEGATIVE); NITRITE, URINE AUTO NEGATIVE (NEGATIVE); PROTEIN, URINE AUTO NEGATIVE (NEGATIVE); RBC, URINE AUTO 118 /HPF (0-3); SPECIFIC GRAVITY URINE AUTO 1.009 (1.002-1.035); SQUAMOUS EPITHELIAL CELL UR AU 0 /HPF (0-6); UROBILINOGEN, URINE AUTO 0.2 mg/dL (0.0-2.0); WBC, URINE AUTO 2 /HPF (0-3)
[2019-01-27] MEDS ORDERED: IBUP100C PO (17:31)
[2019-01-27] MEDS ORDERED: LISI40TA PO (17:31)
[2019-01-27] MEDS ORDERED: TELM1TAB20 PO (17:31)
[2019-01-27] MEDS ORDERED: ATEN100T7 PO (17:31)
--- NOTE | 2019-01-27 17:45 | HPE ---
DATE OF ADMISSION: 01/27/2019 This is a 73-year-old male with past medical history of hypertension, chronic active tobacco abuse, non-oxygen dependent chronic obstructive pulmonary disease (COPD), who presents to the emergency room due to confusion for the last 3 days. Also he has not been able to urinate very well during the same past 3 days. When he came to the emergency room (ER), he was found to have a creatinine of 17.7 and a potassium of 7.7, nonhemolyzed. He was given a cocktail of insulin D50 and calcium gluconate. Also given an amp of sodium bicarbonate. Patient's 12-leak EKG did show EKG changes with mild peaked T's. Dr. George was made aware and is going to evaluate the patient for possible emergent dialysis. Patient at this time is awake, alert, oriented times three and does not show any evidence of fluid overload. He has not taken any over-the counter nonsteroidal anti-inflammatory drugs (NSAIDs). He only has been taking his medications as prescribed, as directed. He will be admitted for further management. PAST MEDICAL HISTORY: 1. Hypertension. 2. History of chronic tobacco abuse. 3. Non-oxygen dependent COPD. 4. Longstanding left gluteal mass, which is now known to be benign. ALLERGIES: No known drug allergies. FAMILY HISTORY: Noncontributory. SOCIAL HISTORY: Patient smokes between a pack and a pack and a half a day for many years. Denies alcohol or illicit drugs. HOME MEDICATIONS: - albuterol as needed - ferrous sulfate 5 mg orally twice daily - folic acid 1 mg orally daily - meloxicam 15 mg orally daily REVIEW OF SYSTEMS: Negative for [id number] systems except what is mentioned in the history of present illness (HPI). VITAL SIGNS: Blood pressure 149/89, heart rate 92, regular, respiratory rate 24, temperature 97.7, oxygen saturation 997% on room air. HEAD: Atraumatic, normocephalic. NECK: Supple. No jugular venous distention (JVD). LUNGS: Clear to auscultation. HEART: S1, S2 audible. No murmurs appreciated. ABDOMEN: Soft. Positive bowel sounds. No pedal edema. SKIN: Intact. NEUROLOGIC: Patient has positive asterixis. He is awake, alert, oriented times three. LABORATORY DATA: WBC 9.2, hemoglobin 9.2, hematocrit 30.1, platelets are 336,000. Sodium 133, potassium 7.7 nonhemolyzed, chloride 101, CO2 of 15, anion gap 17, BUN is 83, creatinine 17.3, glucose 61, lactic acid 0.6. Troponin is less than 0.02. Urinalysis is pending. Influenza serology is negative. Arterial blood gas shows arterial pH of 7.329, pCO2 is 23.8, pO2 is 85.2. Chest x-ray shows no obvious cardiopulmonary process. IMPRESSION: 1. Acute kidney injury. 2. Hyperkalemia. PLAN: Patient will be admitted to the intensive care unit (ICU). Will get basic metabolic panel (BMP) every 4 hours until improvement is seen and/or if the patient begins dialysis. Will be awaiting Dr. George's recommendations. The cause of the acute kidney injury (GUALBERTO) could be secondary to postrenal obstruction. Patient just had a Pringle put in and had 1.6 liters expressed, and it is bloody in nature, waiting for renal ultrasound results. The other possibility is the patient could have acute tubular necrosis from meloxicam, but it is less likely, because the patient has been taking meloxicam for a long period of time. Will hold all his preadmission medications for now. We are going to hydrate him with normal saline at 150 mL an hour. Will have strict intake and output and will continue following his care in the ICU. TOTAL CRITICAL CARE TIME: 60 minutes.
[2019-01-27] MEDS: SODIUM BICARBONATE 150 MEQ in D5W 1,000 ML IV SCH (17:54)
--- NOTE | 2019-01-27 18:02 | REP ---
Clinical: Acute renal failure. Technique: Real time connolly scale and color evaluation using curved array transducer. Findings: The kidneys are both enlarged and demonstrate increased central sinus fat as well as moderate bilateral hydronephrosis. The right kidney measures 13.2 x 5.8 x 6.6 cm with simple cysts measuring up to 2.6 cm maximal diameter as well as evidence for duplicated collecting system with both moieties demonstrating moderate hydronephrosis. The left kidney measures 13.8 x 5.7 x 7.7 cm without obvious cystic change or duplicated system. The bladder demonstrates thickened trabeculated bladder wall measuring up to 7.5 mm thickness. Bilateral ureteral jets were noted. Enlarged heterogeneous prostate gland measures 7.8 x 7.9 x 7.4 cm (238 ml). Impression: 1. The kidneys demonstrate moderate bilateral hydronephrosis with findings to suggest duplicated right sided collecting system as well as three simple right renal cysts measuring up to 2.6 cm. Central sinus fat is also noted suggesting element of chronic renal disease. 2. Bladder demonstrates trabeculated wall thickening. 3. Enlarged heterogeneous prostate gland likely causing outlet obstruction and the above-mentioned renal and bladder findings. Electronically Signed by Davon Carvajal MD 01/27/2019 05:53 P
--- NOTE | 2019-01-27 18:11 | ECGEPIP ---
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
[2019-01-27 19:24] LABS: CALCIUM LEVEL 8.5 MG/DL (8.8-10.2); CREATININE FOR GFR 14.1 MG/DL (0.70-1.30); GLOMERULAR FILTRATION RATE 3.7 (>42); POTASSIUM SERUM 5.8 MEQ/L (3.5-5.1)
[2019-01-27 19:53] VITALS: BP 158/70
[2019-01-27] MEDS: TAMSULOSIN 0.4 MG CAP PO SCH (20:31)
[2019-01-27 21:43] LABS: ALBUMIN 2.5 GM/DL (3.2-5.2); CALCIUM LEVEL 8.1 MG/DL (8.8-10.2); CREATININE FOR GFR 10.9 MG/DL (0.70-1.30); PHOSPHORUS LEVEL 6.5 MG/DL (2.5-4.9); POTASSIUM SERUM 5.5 MEQ/L (3.5-5.1)
[2019-01-27 22:00] VITALS: BP 136/65
[2019-01-28] VITALS: BP 130/59
[2019-01-28] MEDS: SODIUM BICARBONATE 150 MEQ in D5W 1,000 ML IV SCH (03:57)
[2019-01-28 04:00] VITALS: BP 153/69
[2019-01-28 05:04] LABS: HEMATOCRIT 29.5 % (42.0-52.0); HEMOGLOBIN 9.3 g/dl (13.5-17.5); MEAN CORPUSCULAR HEMOGLOBIN 24.5 pg (27.0-33.0); MEAN CORPUSCULAR HGB CONC 31.5 g/dl (32.0-36.5); MEAN CORPUSCULAR VOLUME 77.8 fl (80.0-96.0); PLATELET COUNT, AUTOMATED 328 10^3/uL (150-450); RED BLOOD COUNT 3.79 10^6/uL (4.30-6.10); WHITE BLOOD COUNT 6.9 10^3/uL (4.0-10.0)
[2019-01-28 05:48] LABS: ALBUMIN 2.6 GM/DL (3.2-5.2); CREATININE FOR GFR 6.21 MG/DL (0.70-1.30); GLOMERULAR FILTRATION RATE 9.5 (>42); MAGNESIUM LEVEL 2.4 MG/DL (1.8-2.4); PERCENT SATURATION 7.9 % (19.7-50.0); PHOSPHORUS LEVEL 4.7 MG/DL (2.5-4.9); POTASSIUM SERUM 5.4 MEQ/L (3.5-5.1)
[2019-01-28 08:00] VITALS: BP 135/63
--- NOTE | 2019-01-28 09:12 | CR ---
DATE OF CONSULTATION: 01/27/2019 REASON FOR CONSULTATION: Acute renal failure and hyperkalemia in this gentleman who presented with altered mentation. HISTORY OF PRESENT ILLNESS: Mr. Ma is a 73-year-old gentleman who is regularly followed by the [facility] and has known history of chronic heavy smoking with chronic obstructive pulmonary disease (COPD), hypertension and recent history of esophageal stricture and a left gluteal area mass. He underwent a biopsy of his gluteal mass and esophageal stricture a couple of weeks ago by Dr. Kebede. Two weeks ago he was admitted to [facility] with acute kidney injury and hypotension. At that time he was hydrated with IV fluid and his kidney function improved. He was discharged to home and reports that he was feeling well up until a couple of days ago when he started to have difficulty urinating. He became confused over last few days and presented to the emergency room today where he was found to have a BUN of 83 and creatinine 17.3, sodium level was 133 and potassium 7.7. A nephrology consultation was requested and the patient is seen in the emergency room. PAST MEDICAL AND SURGICAL HISTORY: Significant for: 1. History of hypertension. 2. COPD with heavy active smoking. 3. History of esophageal stricture. 4. History of left gluteal area mass. 5. Recent history of acute renal failure. MEDICATIONS: His home medications included - atenolol/hydrochlorothiazide 100/25 mg daily - lisinopril 10 mg daily - telmisartan-amlodipine 40-10 mg daily - meloxicam 15 mg daily - albuterol inhaler as needed ALLERGIES: The patient has no known drug allergies. PERSONAL AND SOCIAL HISTORY: The patient lives by himself and has history of heavy smoking for a number of years. He denies any alcohol or drug use. FAMILY HISTORY: Negative for end-stage renal disease. REVIEW OF SYSTEMS: He denies any fever or chills. Two weeks ago he had esophageal biopsy due to difficulty swallowing solid foods and esophageal stricture. He also had biopsy of the left gluteal area mass. Ears, nose and throat are unremarkable. Cardiovascular system is significant for longstanding hypertension. He denies any leg edema or difficulty breathing. Respiratory system is significant for chronic COPD. There is no history of hemoptysis or pleuritic type of chest pain. Gastrointestinal (GI) system is significant for dysphagia of solid food. He denies any vomiting or diarrhea. Genitourinary () system is significant for decreased urine output for a few days and difficulty voiding. He had a Pringle catheter placed in the emergency room with about 3 liters of urine output. Endocrine system is negative for diabetes or thyroid problems. Hematological system is negative for any anemia or excessive bleeding. Psychosocial system negative for depression, anxiety. Neurological system is negative for seizures or stroke. He was slightly altered on presentation to the emergency room. Musculoskeletal system is significant for a left gluteal area superficial mass. Hematological system is significant for anemia and no history of long-term anticoagulation. PHYSICAL EXAMINATION: The patient is awake and without any acute distress at the time of my visit. He is lying in the stretcher. Temperature 97.7 degrees Fahrenheit, heart rate 90 per minute and respiratory rate 18 per minute. Blood pressure 138/63 mmHg and oxygen saturation 95% on room air. Head is atraumatic. Neck is supple and JVD is not abnormally elevated. There is no oral thrush or ulcers. Pupils equal and reactive to light and sclera is anicteric. Heart sounds are regular and without a pericardial friction rub. Lungs sound clear to auscultation bilaterally. Abdomen is soft and nontender and bowel sounds are normal. He already has a Pringle catheter in place and his bladder has been now emptied and not palpable. Bowel sounds are normal and there is no palpable organomegaly. Extremities have no cyanosis and clubbing of his fingers is noted. Skin has a superficial mass which is spread out on his left lateral gluteal area. There is no other ulcerations. Neurologically he is awake and without focal deficit. LABORATORY DATA: His WBC count is 9.2, hemoglobin 9.2 and hematocrit 30. Platelets 336. Blood gas done in the emergency room showed a pH of 7.32, pCO2 of 23.8, pO2 85 and bicarb 12. His initial chemistry showed sodium level 133, potassium 7.7, chloride 101, CO2 15, BUN 83 and creatinine 17.3. Glucose 61 and lactic acid 0.6. Calcium 8.0, total bilirubin 0.5, AST 7, ALT 8, troponin less than 0.02, BNP 4013, albumin 2.6 and total protein 6.9. A urinalysis showed 2+ blood and no protein. This is a catheterized specimen. He had a chest x-ray done in the emergency room which showed chronic changes of pulmonary fibrosis and COPD. No acute infiltrate or effusion noted. Renal ultrasound done in the emergency room today showed right kidney 13.2 and left kidney 13.8 cm. Enlarged prostate was noted. Moderate bilateral hydronephrosis was noted on his renal ultrasound today. PROBLEMS: 1. Acute renal failure. Most likely, this is a combination of obstructive uropathy and prerenal azotemia due to decreased oral intake. The patient had a serum creatinine of just less than 1 two weeks ago when he was discharged from [facility]. Today when he had Pringle catheter placed, nursing staff reports that 3 liters urine came out immediately after the catheter was placed. At present we have already started sodium bicarbonate drip. I had discussed the case earlier with the emergency room physician and gave recommendations about IV fluids and investigations. We will maintain the Pringle catheter and continue with aggressive hydration. His renal profile will be checked in few hours. He is clinically dehydrated and likely to improve with Pringle catheter placement. I do not feel that urgent dialysis is going to be needed. 2. Hyperkalemia. Most likely result of acute renal failure and metabolic acidosis. The patient has already received acute medical treatment with insulin, sodium bicarbonate and D50. He is being hydrated with sodium bicarbonate drip in view of metabolic acidosis and a Pringle catheter has already been placed. His hyperkalemia is expected to resolve relatively quickly. He was also given a dose of VELTASSA by the emergency room physician, which I do not feel that will be needed anymore. 3. Metabolic acidosis. Related to acute renal failure and we will continue with sodium bicarbonate drip until his acidosis is corrected. His renal profile will be checked in a few hours. 4. Anemia. Probably this is chronic and most likely multifactorial. We will check iron studies tomorrow morning and also B12 and folic acid levels. There is no urgent indication for transfusion. 5. Urinary retention. Most likely result of enlarged prostate with bladder neck obstruction. The patient already has a Pringle catheter placed. Once his condition improves then we will start him on Flomax and Proscar. He will need to be followed up by urology as an outpatient. 6. Hypertension. The patient was on GUCCI inhibitor, diuretics and angiotensin receptor jonna in addition to beta jonna as outpatient. We will have to adjust his medications and probably we will pick mostly calcium channel jonna and beta jonna and consider stopping his GUCCI inhibitor and angiotensin receptor jonna completely. At this point, there is no emergent need for an antihypertensive as his blood pressure is relatively low. Thank you for involving me in the care of Mr. Ma. I will follow him along with you. BINDU
[2019-01-28] MEDS: TAMSULOSIN 0.4 MG CAP PO SCH (09:14)
[2019-01-28 12:17] VITALS: BP 150/78
[2019-01-28] MEDS ORDERED: ATENOLOL 25 MG TAB PO ONE (13:00)
--- NOTE | 2019-01-28 13:21 | IPNPDOC ---
Text Note Date of Service The patient was seen on 01/28/19. NOTE Subjective: No complaints this morning. No nausea or vomiting or diarrhea, no confusion. VITAL SIGNS: As below HEAD: Atraumatic, normocephalic. NECK: Supple. No jugular venous distention (JVD). LUNGS: Mild bilateral wheezing. Good air entry. HEART: S1, S2 audible. No murmurs appreciated. ABDOMEN: Soft. Positive bowel sounds. No pedal edema. SKIN: Intact. NEUROLOGIC: Patient has positive asterixis. He is awake, alert, oriented times three. Labs and radiology: reviewed Assessment and Plan: Mr. Ma is a 73-year-old gentleman who is regularly followed by the [facility] and has known history of chronic heavy smoking with chronic obstructive pulmonary disease (COPD), hypertension and recent admission on 01/11/19 for hypotension, GUALBERTO, and dysphagia. He was found to have esophageal stricture and he also had a a left gluteal area mass( present for 1 year). He underwent a biopsy of his gluteal mass and esophageal stricture by Dr. Kebede. The esophageal biopsy is negative for cancer and the gluteal mass showed Ruptured and markedly inflamed epidermal inclusion cyst. At that time he was hydrated with IV fluid and his kidney function improved. He was discharged to home and reports that he was feeling well up until a couple of days ago when he started to have difficulty urinating. He became confused over last few days and presented to the emergency room today where he was found to have a BUN of 83 and creatinine 17.3, sodium level was 133 and potassium 7.7. He had a roque placed in the ED which drained 1.6 liters of urine . It was a difficult insertion and the nurse heard a pop when it went in. Renal US showed bilateral hydronephrosis with enlarged heterogenous prostate and thickened trabeculated bladder wall. Patient was admitted for Acute kidney injury, hyperkalemia due to obstructive uropathy due to prostatic enlargement. GUALBERTO due to obstructive uropathy due to enlarged prostate patient will have to go home with Roque will start flomax and finasteride once his kidney function improves. No NSAIDS, ARBS or ACEI now. Follow up with Urology as outpatient. Hyperkalemia and acidosis due to above continue bicarb gtt as per nephrology. COPD no issues at present continue home medications Hypertension hold lisinopril, telmisartan, HCTZ If needed will restart amlodipine and atenolol. DVT prophylaxis ordered. VS,Fishbone, I+O VS, Fishbone, I+O Laboratory Tests 01/27/19 15:06 Red Blood Count 3.74 L, Mean Corpuscular Volume 80.5, Mean Corpuscular Hemoglobin 24.6 L, Mean Corpuscular Hemoglobin Concent 30.6 L, Red Cell Distribution Width 17.5 H, Neutrophils (%) (Auto) 87.5 H, Lymphocytes (%) (Auto) 6.3 L, Monocytes (%) (Auto) 5.0, Eosinophils (%) (Auto) 0.4, Basophils (%) (Auto) 0.4, Neutrophils # (Auto) 8.0 H, Lymphocytes # (Auto) 0.6 L, Monocytes # (Auto) 0.5, Eosinophils # (Auto) 0.0, Basophils # (Auto) 0.0 01/27/19 18:46 Calcium Level 8.5 L 01/27/19 21:05 Anion Gap 13 01/28/19 04:42 Red Blood Count 3.79 L, Mean Corpuscular Volume 77.8 L, Mean Corpuscular Hemoglobin 24.5 L, Mean Corpuscular Hemoglobin Concent 31.5 L, Red Cell Distribution Width 17.3 H, Anion Gap 9 Vital Signs Date Time Temp Pulse Resp B/P (MAP) Pulse Ox O2 Delivery O2 Flow Rate FiO2 01/28/19 08:00 98.4 101 20 135/63 (87) 95 01/27/19 14:47 Room Air I&O- Last 24 Hours up to 6 AM 01/28/19 05:59 Intake Total 710 ml Output Total 8600 ml Balance -7890 ml ROBBIE LEIGH MD Jan 28, 2019 13:21
--- NOTE | 2019-01-28 13:24 | IPN ---
DATE OF VISIT: 01/28/2019 Mr. Ma is seen this morning on his bedside. He is feeling much better today and denies any complaints. He was admitted late afternoon yesterday with weakness and altered mentation. He was found to have severe hyperkalemia and advanced acute renal failure. He had a large urinary retention and 3 liters of fluid came out of his bladder immediately on Pringle catheter placement. Total urine output has been almost 10 liters so far. He did receive aggressive IV fluid hydration, though it has not been recorded accurately in his records. Initially he was given 150 mL of sodium bicarbonate drip per hour and later last evening I cut it down to 100 mL per hour. In addition, the patient also has oral intake. He denies any excessive thirst, nausea, vomiting, dyspnea or chest pain at present. His Pringle catheter is draining a slightly pinkish urine. PHYSICAL EXAMINATION: Temperature 98.4 degrees Fahrenheit, heart rate 101 per minute and respiratory rate 20 per minute. Blood pressure 135/63 mmHg and oxygen saturation 95% on room air. Head is atraumatic. Neck is supple and without JVD or thyroid enlargement. Lungs have scattered rhonchi due to chronic obstructive pulmonary disease (COPD). Heart sounds are tachycardic. Abdomen is soft and nontender and bowel sounds are normal. There is no palpable organomegaly. Extremities have no cyanosis or clubbing. Skin has no ulcers or rash other than his left gluteal area skin mass or dermoid type reaction. Neurologically he is awake, alert and at his baseline mentation. Today's labs show WBC count 6.9, hemoglobin 9.3 and hematocrit 29.5. Sodium is 139, potassium is down to 5.4, CO2 is up to 25, BUN is 41 and creatinine 6.21. His iron level is only 17, transferrin saturation is 7.9% and ferritin 90. A folic acid and B12 levels are pending. PROBLEMS: 1. Acute renal failure secondary to obstructive uropathy and decreased oral intake in the setting of chronic GUCCI inhibitor, angiotensin receptor jonna and diuretic use. His kidney function is improving nicely and he has excessive urine output due to post obstructive diuresis. We will continue with IV fluid hydration and monitor his renal function. There is certainly no indication for dialysis. 2. Metabolic acidosis. His acidosis has improved and I am going to cut down sodium bicarbonate to 75 mEq in each liter of half-normal saline. 3. Hyperkalemia. His hyperkalemia has also improved as kidney function and acidosis has improved. His potassium level is likely to return to normal range in next 24 hours. We will continue with aggressive IV fluid hydration at 150 per hour with half-normal saline and sodium bicarbonate 75 mEq in each liter. 4. Iron deficiency anemia. This is chronic and there is no change in his anemia over the last 24 hours. The patient will need long-term iron supplement. Once his condition is improved we will consider giving him a dose of intravenous iron prior to discharge. 5. COPD. The patient has a heavy long history of smoking. He is receiving nebulizers. 6. Hypertension. So far his blood pressure is reasonable and he has not been receiving any antihypertensive medications. At home he was on atenolol, hydrochlorothiazide, lisinopril, amlodipine and telmisartan. I will start with low dose atenolol and make gradually adjustment. DISPOSITION: From a renal standpoint, the patient can be transferred to medical floor out of ICU.
[2019-01-28] MEDS: SODIUM BICARBONATE 75 MEQ in NS 0.45% 1,000 ML IV SCH ×2 (13:53→22:46)
[2019-01-28 14:00] VITALS: BP 155/72
[2019-01-28 22:00] VITALS: BP 146/69
[2019-01-29] VITALS (10 sets, daily range): BP systolic 119–142; BP diastolic 55–74
[2019-01-29] MEDS ORDERED: ACETAMINOPHEN TAB 650MG DOSE (2X325MG) PO ONE (01:45)
[2019-01-29] MEDS ORDERED: traMADol 50 MG TAB PO ONE (03:45)
[2019-01-29] MEDS: SODIUM BICARBONATE 75 MEQ in NS 0.45% 1,000 ML IV SCH ×2 (04:20→21:30)
[2019-01-29 06:37] LABS: ALBUMIN 2.6 GM/DL (3.2-5.2); CALCIUM LEVEL 8.5 MG/DL (8.8-10.2); CREATININE FOR GFR 1.36 MG/DL (0.70-1.30); PHOSPHORUS LEVEL 2.2 MG/DL (2.5-4.9); POTASSIUM SERUM 4.4 MEQ/L (3.5-5.1)
[2019-01-29] MEDS: TAMSULOSIN 0.4 MG CAP PO SCH (09:31)
[2019-01-29 10:08] LABS: FOLATE 6.6 NG/ML (>5.4)
[2019-01-29] MEDS ORDERED: IRON SUCROSE 500 MG in NS 250 ML IV ONE (11:30)
[2019-01-29] MEDS ORDERED: SODIUM PHOSPHATE INJ 30 MMOL in D5W 500 ML IV ONE (12:00)
--- NOTE | 2019-01-29 12:37 | IPNPDOC ---
Text Note Date of Service The patient was seen on 01/29/19. NOTE Subjective: No complaints this morning. No nausea or vomiting or diarrhea, no confusion. Continues to make a lot of urine and remains in negative balance. Says he has an appoinment for injection for Macular degeneration on 02/13/19 VITAL SIGNS: As below HEAD: Atraumatic, normocephalic. NECK: Supple. No jugular venous distention (JVD). LUNGS: Mild bilateral wheezing. Good air entry. HEART: S1, S2 audible. No murmurs appreciated. ABDOMEN: Soft. Positive bowel sounds. No pedal edema. SKIN: Intact. NEUROLOGIC: Patient has positive asterixis. He is awake, alert, oriented times three. Labs and radiology: reviewed Assessment and Plan: Mr. Ma is a 73-year-old gentleman who is regularly followed by the [facility] and has known history of chronic heavy smoking with chronic obstructive pulmonary disease (COPD), hypertension and recent admission on 01/11/19 for hypotension, GUALBERTO, and dysphagia. He was found to have esophageal stricture and he also had a a left gluteal area mass( present for 1 year). He underwent a biopsy of his gluteal mass and esophageal stricture by Dr. Kebede. The esophageal biopsy is negative for cancer and the gluteal mass showed Ruptured and markedly inflamed epidermal inclusion cyst. At that time he was hydrated with IV fluid and his kidney function improved. He was discharged to home and reports that he was feeling well up until a couple of days ago when he started to have difficulty urinating. He became confused over last few days and presented to the emergency room today where he was found to have a BUN of 83 and creatinine 17.3, sodium level was 133 and potassium 7.7. He had a roque placed in the ED which drained 1.6 liters of urine . It was a difficult insertion and the nurse heard a pop when it went in. Renal US showed bilateral hydronephrosis with enlarged heterogenous prostate and thickened trabeculated bladder wall. Patient was admitted for Acute kidney injury, hyperkalemia due to obstructive uropathy due to prostatic enlargement. GUALBERTO due to obstructive uropathy due to enlarged prostate on the back ground of being on ACEI, ARBs and HCTZ. PSA elevated. patient will have to go home with Roque will start flomax and finasteride once his kidney function improves. No NSAIDS, ARBS or ACEI now. Follow up with Urology as outpatient. Referral sent. Post obstructive Diuresis with hypophosphatemia will replace phosphate, check magnesium continue IVF Encourage po fluid intake Hyperkalemia and acidosis due to above now resolved. COPD no issues at present continue home medications Hypertension hold lisinopril, telmisartan, HCTZ If needed will restart amlodipine and atenolol. Macular degeneration outpatient follow up as scheduled. DVT prophylaxis ordered. VS,Fishbone, I+O VS, Fishbone, I+O Laboratory Tests 01/29/19 05:51 Anion Gap 7 L Vital Signs Date Time Temp Pulse Resp B/P (MAP) Pulse Ox O2 Delivery O2 Flow Rate FiO2 01/29/19 06:00 98.7 80 17 138/62 (87) 96 01/27/19 14:47 Room Air I&O- Last 24 Hours up to 6 AM 01/29/19 06:00 Intake Total 2453 ml Output Total 4655 ml Balance -2202 ml ROBBIE LEIGH MD Jan 29, 2019 12:37
[2019-01-29] MEDS ORDERED: IRON SUCROSE 25 MG in NS 50 ML IV ONE ×2 (13:00→17:00)
[2019-01-29 13:31] LABS: MAGNESIUM LEVEL 1.8 MG/DL (1.8-2.4)
[2019-01-29] MEDS ORDERED: IRON SUCROSE 475 MG in NS 250 ML IV ONE ×2 (14:00→18:00)
[2019-01-30] MEDS ORDERED: traMADol 50 MG TAB PO ONE (02:30)
[2019-01-30] MEDS: SODIUM BICARBONATE 75 MEQ in NS 0.45% 1,000 ML IV SCH (04:56)
[2019-01-30 08:58] LABS: HEMOGLOBIN 9.6 g/dl (13.5-17.5); MEAN CORPUSCULAR HEMOGLOBIN 24.4 pg (27.0-33.0); MEAN CORPUSCULAR VOLUME 78.9 fl (80.0-96.0); PLATELET COUNT, AUTOMATED 359 10^3/uL (150-450); RED BLOOD COUNT 3.93 10^6/uL (4.30-6.10); WHITE BLOOD COUNT 7.8 10^3/uL (4.0-10.0)
[2019-01-30] MEDS: amLODIPine 5 MG TAB PO SCH ×2 (09:00→21:23)
[2019-01-30 09:10] LABS: ALBUMIN 2.7 GM/DL (3.2-5.2); BLOOD UREA NITROGEN 8 MG/DL (7-18); CALCIUM LEVEL 8.5 MG/DL (8.8-10.2); CARBON DIOXIDE LEVEL 26 MEQ/L (21-32); CHLORIDE LEVEL 106 MEQ/L (98-107); CREATININE FOR GFR 0.84 MG/DL (0.70-1.30); GLOMERULAR FILTRATION RATE > 60.0 (>42); GLUCOSE, FASTING 109 MG/DL (70-100); PHOSPHORUS LEVEL 2.4 MG/DL (2.5-4.9); POTASSIUM SERUM 4.1 MEQ/L (3.5-5.1); SODIUM LEVEL 138 MEQ/L (136-145)
[2019-01-30] MEDS: TAMSULOSIN 0.4 MG CAP PO SCH (09:16)
--- NOTE | 2019-01-30 09:22 | IPN ---
DATE: 01/29/2019 Mr. Ma is seen this morning on his bedside. He is feeling well and denies any nausea, vomiting, dyspnea or chest pain. His Pringle catheter is draining slightly pinkish urine. He remains on IV fluid so far. PHYSICAL EXAMINATION Temperature 98.7 degrees Fahrenheit, heart rate 80 per minute and respiratory rate 17 per minute. Blood pressure 138/62 mmHg and oxygen saturation 96% on room air. Intake and output records from yesterday showed total intake 2753 and output 3355. His head is atraumatic. Neck is supple and without JVD or thyroid enlargement. Heart sounds are regular and lungs clear to auscultation. Abdomen soft and nontender. Bowel sounds are normal. Extremities have no cyanosis or clubbing. Skin has no rash or ulcers. Neurologically he is awake, alert and oriented times three. Today's labs show sodium 140, potassium 4.4, CO2 25, BUN 13 and creatinine 1.36. Calcium level is 8.5 and phosphorus 2.2. PROBLEMS: 1. Acute renal failure. Kidney function has improved nicely as his acute renal failure was related to obstruction and possible dehydration. He has significant post obstructive diuresis so I would recommend to continue with IV fluid hydration for at least next 24 hours. The patient is also being encouraged to increase his oral intake. 2. Hypertension. His blood pressure is very well controlled on minimal dose of atenolol alone. Prior to admission he was on multiple antihypertensive meds including GUCCI inhibitor, angiotensin receptor jonna, calcium channel jonna, diuretic and beta jonna. I do not feel that GUCCI inhibitor and angiotensin receptor blockers are safe medications for him. At this point he is only on low dose atenolol and we can add amlodipine if needed. 3. Urinary retention. The patient has probably bladder neck obstruction due to enlarged prostate. He has already been started on Flomax and should go home with Pringle catheter and a trial of void later on either at [facility] or by urology. 4. Anemia. There was no CBC done today. We should consider giving him a dose of intravenous iron as he does have iron deficiency. I will go ahead and order a dose of Venofer today.
[2019-01-30] MEDS ORDERED: NORV5TAB PO (11:02)
--- NOTE | 2019-01-30 11:11 | IPNPDOC ---
Date Seen The patient was seen on 01/30/19. Progress Note Subjective: RN to assist with roque care. PT pending. Per nephrology ok to dc in am , currently on ns at 200ml/hr. no c/o sob. no dizziness, or lightheadedness. on norvasc bid. GUCCI inh and diuretics held due to creatinine of 17 on admission. Says he has an appoinment for injection for Macular degeneration on 02/13/19 VITAL SIGNS: As below HEAD: Atraumatic, normocephalic. NECK: Supple. No jugular venous distention (JVD). LUNGS: Mild bilateral wheezing. Good air entry. HEART: S1, S2 audible. No murmurs appreciated. ABDOMEN: Soft. Positive bowel sounds. No pedal edema. SKIN: Intact. NEUROLOGIC: Patient has positive asterixis. He is awake, alert, oriented times three. Labs and radiology: reviewed Assessment and Plan: Mr. Ma is a 73-year-old gentleman who is [facility] and has known history of chronic heavy smoking with chronic obstructive pulmonary disease (COPD), hypertension and recent admission on 01/11/19 for hypotension, GUALBERTO, and dysphagia. He was found to have esophageal stricture and he also had a a left gluteal area mass( present for 1 year). He underwent a biopsy of his gluteal mass and esophageal stricture by Dr. Kebede. The esophageal biopsy is negative for cancer and the gluteal mass showed Ruptured and markedly inflamed epidermal inclusion cyst. At that time he was hydrated with IV fluid and his kidney function improved. He was discharged to home and reports that he was feeling well up until a couple of days ago when he started to have difficulty urinating. He became confused over last few days and presented to the emergency room today where he was found to have a BUN of 83 and creatinine 17.3, sodium level was 133 and potassium 7.7. He had a roque placed in the ED which drained 1.6 liters of urine . It was a difficult insertion and the nurse heard a pop when it went in. Renal US showed bilateral hydronephrosis with enlarged heterogenous prostate and thickened trabeculated bladder wall. Patient was admitted for Acute kidney injury, hyperkalemia due to obstructive uropathy due to prostatic enlargement. GUALBERTO due to obstructive uropathy due to enlarged prostate on the back ground of being on ACEI, ARBs and HCTZ. PSA elevated. patient will have to go home with Roque will start flomax and finasteride once his kidney function improves. No NSAIDS, ARBS or ACEI now. Follow up with Urology as outpatient. Referral sent. Post obstructive Diuresis with hypophosphatemia will replace phosphate, check magnesium continue IVF Encourage po fluid intake Hyperkalemia and acidosis due to above now resolved. COPD no issues at present continue home medications Hypertension hold lisinopril, telmisartan, HCTZ If needed will restart amlodipine and atenolol. Macular degeneration outpatient follow up as scheduled. DVT prophylaxis ordered. VS, I&O, 24H, Fishbone Vital Signs/I&O Vital Signs Date Time Temp Pulse Resp B/P (MAP) Pulse Ox O2 Delivery O2 Flow Rate FiO2 01/30/19 02:39 18 01/29/19 22:30 97.8 63 142/70 (94) 97 01/27/19 14:47 Room Air I&O- Last 24 Hours up to 6 AM 01/30/19 06:00 Intake Total 1218.75 ml Output Total 2805 ml Balance -1586.25 ml Laboratory Data 24H LABS Laboratory Tests 2 01/30/19 08:27: Nucleated Red Blood Cells % (auto) 0.0, Blood Urea Nitrogen 8, Creatinine 0.84, Sodium Level 138, Potassium Level 4.1, Chloride Level 106, Carbon Dioxide Level 26, Anion Gap 6L, Glomerular Filtration Rate > 60.0, Calcium Level 8.5L, Phosphorus Level 2.4L, Albumin 2.7L CBC/BMP Laboratory Tests 01/30/19 08:27 Red Blood Count 3.93 L, Mean Corpuscular Volume 78.9 L, Mean Corpuscular Hemoglobin 24.4 L, Mean Corpuscular Hemoglobin Concent 31.0 L, Red Cell Distribution Width 17.1 H, Anion Gap 6 L Microbiology Microbiology 01/27/19 Blood Culture - Preliminary, Resulted No Growth after 48 hours. All Specime... 01/27/19 Blood Culture - Preliminary, Resulted No Growth after 48 hours. All Specime... ORAL MARION MD Jan 30, 2019 10:46
[2019-01-30] MEDS: NS 1,000 ML IV SCH ×3 (11:52→22:14)
[2019-01-30 14:53] LABS: PSA TOTAL 20.4 ng/mL (0.0-4.0)
--- NOTE | 2019-01-30 15:26 | IPN ---
DATE: 01/30/2019 Mr. Ma is seen this morning on his bedside. He is feeling well and denies any nausea, vomiting, dyspnea, or chest pain. His Pringle catheter is now draining clear urine. He has significant negative fluid balance since Pringle catheter was placed, and a total negative fluid balance of about 12 liters is noted. He has been receiving intravenous (IV) fluids and also being encouraged for oral intake, however not been able to drink enough. PHYSICAL EXAMINATION: Temperature 97.8 degrees Fahrenheit, heart rate 68 per minute, respiratory rate 18 per minute, blood pressure 142/70 mm of mercury, and oxygen saturation 97%. Intake and output records from yesterday show a total intake of only 1093, which is probably not accurate. His output was more than 5 liters again. His head is atraumatic. Neck is supple and without jugular venous distention (JVD) or thyroid enlargement. Ears, nose, and throat are unremarkable. Heart sounds are regular and lungs clear to auscultation. Abdomen soft and nontender, and bowel sounds are normal. Extremities have no cyanosis or clubbing. Neurologically, he is awake, alert, and at his baseline mentation. Today's labs show WBC count 7.8, hemoglobin 9.6, and hematocrit 31.0. Sodium is 138, potassium 4.1, CO2 of 26, BUN 8, and creatinine 0.84. Calcium 8.5 and phosphorus 2.4. PROBLEMS: Acute renal failure. The patient had obstructive uropathy and dehydration. His acute renal failure has resolved completely. Unfortunately, he has significant postobstructive diuresis and has been in negative fluid balance of about 5 liters. I am going to increase his intravenous (IV) fluid to 100 mL per hour. The patient is being encouraged to increase his oral intake. If he remains stable, probably he can be discharged to home tomorrow. His electrolytes are stable. 2. Urinary retention, most likely related to bladder neck obstruction caused by enlarged prostate. He will go home with a Pringle catheter and has already been started on tamsulosin 0.4 mg daily. He will follow up with [facility] and urology as an outpatient. 3. Anemia. His anemia is stable, and he was given a dose of intravenous iron yesterday. He should continue with oral iron supplement as an outpatient and [facility]. 4. Hypertension. At present, his blood pressure is very well controlled. He was on a very high dose of antihypertensive medications at home prior to admission, and we have cut down the dose significantly. Low-dose calcium channel jonna is being added by hospitalist service today. He will need further adjustments in his antihypertensive medications. This can be done as an outpatient [facility].
[2019-01-30] MEDS ORDERED: traMADol 50 MG TAB PO PRN (21:15)
[2019-01-30 22:00] VITALS: BP 134/64
[2019-01-31] MEDS: NS 1,000 ML IV SCH (03:14)
[2019-01-31 06:00] VITALS: BP 114/61
[2019-01-31 06:15] LABS: BLOOD UREA NITROGEN 7 MG/DL (7-18); CALCIUM LEVEL 7.8 MG/DL (8.8-10.2); CARBON DIOXIDE LEVEL 25 MEQ/L (21-32); CHLORIDE LEVEL 110 MEQ/L (98-107); CREATININE FOR GFR 0.76 MG/DL (0.70-1.30); GLOMERULAR FILTRATION RATE > 60.0 (>42); GLUCOSE, FASTING 89 MG/DL (70-100); POTASSIUM SERUM 3.9 MEQ/L (3.5-5.1); SODIUM LEVEL 139 MEQ/L (136-145)
[2019-01-31] MEDS: amLODIPine 5 MG TAB PO SCH ×2 (09:00→21:17)
[2019-01-31] MEDS: TAMSULOSIN 0.4 MG CAP PO SCH (10:52)
--- NOTE | 2019-01-31 11:25 | IPNPDOC ---
Date Seen The patient was seen on 01/31/19. Progress Note Subjective: Pt failed HSE, AND NOT PASSED PHYSICAL THERAPY. PT feels comfortable with roque care. PT pending. Per nephrology ok to dc no c/o sob. no dizziness, or lightheadedness. on norvasc bid. GUCCI inh and diuretics held due to creatinine of 17 on admission. Says he has an appointment for injection for Macular degeneration on 02/13/19 VITAL SIGNS: As below HEAD: Atraumatic, normocephalic. NECK: Supple. No jugular venous distention (JVD). LUNGS: Mild bilateral wheezing. Good air entry. HEART: S1, S2 audible. No murmurs appreciated. ABDOMEN: Soft. Positive bowel sounds. No pedal edema. SKIN: Intact. NEUROLOGIC: Patient has positive asterixis. He is awake, alert, oriented times three. Labs and radiology: reviewed Assessment and Plan: Mr. Ma is a 73-year-old gentleman who is regularly [facility] and has known history of chronic heavy smoking with chronic obstructive pulmonary disease (COPD), hypertension and recent admission on 01/11/19 for hypotension, GUALBERTO, and dysphagia. He was found to have esophageal stricture and he also had a a left gluteal area mass( present for 1 year). He underwent a biopsy of his gluteal mass and esophageal stricture by Dr. Kebede. The esophageal biopsy is negative for cancer and the gluteal mass showed Ruptured and markedly inflamed epidermal inclusion cyst. At that time he was hydrated with IV fluid and his kidney function improved. He was discharged to home and reports that he was feeling well up until a couple of days ago when he started to have difficulty urinating. He became confused over last few days and presented to the emergency room today where he was found to have a BUN of 83 and creatinine 17.3, sodium level was 133 and potassium 7.7. He had a roque placed in the ED which drained 1.6 liters of urine . It was a difficult insertion and the nurse heard a pop when it went in. Renal US showed bilateral hydronephrosis with enlarged heterogenous prostate and thickened trabeculated bladder wall. Patient was admitted for Acute kidney injury, hyperkalemia due to obstructive uropathy due to prostatic enlargement. GUALBERTO due to obstructive uropathy due to enlarged prostate on the back ground of being on ACEI, ARBs and HCTZ. PSA elevated. patient will have to go home with Roque No NSAIDS, ARBS or ACEI now. Follow up with Urology as outpatient. Referral sent. Post obstructive Diuresis with hypophosphatemia will replace phosphate, check magnesium s/p IVF Encourage po fluid intake Hyperkalemia and acidosis due to above now resolved. COPD no issues at present continue home medications Hypertension hold lisinopril, telmisartan, HCTZ on norvasc. Macular degeneration outpatient follow up as scheduled. DVT prophylaxis ordered. disposition: awaiting physical therapy clearance VS, I&O, 24H, Fishbone Vital Signs/I&O Vital Signs Date Time Temp Pulse Resp B/P (MAP) Pulse Ox O2 Delivery O2 Flow Rate FiO2 01/31/19 09:00 88 110/58 01/31/19 06:00 97.7 17 99 01/27/19 14:47 Room Air I&O- Last 24 Hours up to 6 AM 01/31/19 06:00 Intake Total 4890 ml Output Total 2900 ml Balance 1990 ml Laboratory Data 24H LABS Laboratory Tests 2 01/31/19 05:39: Anion Gap 4L, Glomerular Filtration Rate > 60.0, Blood Urea Nitrogen 7, C reatinine 0.76, Sodium Level 139, Potassium Level 3.9, Chloride Level 110H, Carbon Dioxide Level 25, Calcium Level 7.8L CBC/BMP Laboratory Tests 01/31/19 05:39 Calcium Level 7.8 L Microbiology Microbiology 01/27/19 Blood Culture - Preliminary, Resulted No Growth after 72 hours. All specime... 01/27/19 Blood Culture - Preliminary, Resulted No Growth after 72 hours. All specime... ORAL MARION MD Jan 31, 2019 11:00
--- NOTE | 2019-01-31 12:35 | IPN ---
DATE OF VISIT: 01/31/2019 Mr. Ma is seen this morning on his bedside. He reports feeling weak and dizzy. He is also concerned about his Pringle catheter. He had urinary retention with 3 liters of urine in his bladder when the catheter was placed. He has been already started on tamsulosin 0.4 mg daily. I feel that catheter should be maintained for at least another week before it can be removed. The patient follows with the [facility] regularly as outpatient. He had acute renal failure and severe hyperkalemia which has also improved. He has been in significant negative fluid balance and intravenous (IV) fluid has been stopped this morning. On physical exam, temperature 97.7 degrees Fahrenheit, heart rate 70 per minute and respiratory rate 17 per minute. Blood pressure 114/60 mmHg and oxygen saturation 99%. Intake and output records from yesterday show a positive fluid balance of 35 mL, which is first time so far since Pringle catheter was placed. Today so far he is also positive by 2 liters. His head is atraumatic. Neck is supple and there is no jugular venous distention (JVD) or thyroid enlargement. Heart sounds are regular and lungs clear to auscultation. Abdomen soft and nontender, and bowel sounds are present. Extremities have no cyanosis or clubbing. Neurologically, he is at his baseline mentation. Today's labs show sodium 139, potassium 3.9, CO2 25, BUN 7 and creatinine 0.76. Glucose 89 and calcium 7.8. PROBLEMS: 1. Acute renal failure. Kidney function has improved to normal. His acute renal failure was mostly due to obstructive uropathy and prerenal azotemia. He still has a Pringle catheter in place. IV fluid is already stopped and patient is being advised to increase his oral intake. 2. Urinary retention. Patient has a Pringle catheter in place and has been on tamsulosin 0.4 mg daily. He should continue with the same and followup with [facility] as an outpatient. He should have a trial of void in about 1 week. 3. Anemia. His anemia is stable and likely to improve as his kidney function has improved now. He was given Aranesp earlier this week. 4. Generalized weakness and deconditioning. Patient feels quite weak; however, he is grossly intact. Physical therapy will need to work with him. DISPOSITION: From renal standpoint, patient is back to normal kidney function. No need for further followup. He will followup with [facility] as an outpatient. Nephrology signing off the case.
[2019-01-31 14:00] VITALS: BP 139/61
[2019-01-31 22:00] VITALS: BP 135/63
[2019-02-01 06:00] VITALS: BP 116/66
[2019-02-01 07:46] VITALS: BP 135/63
[2019-02-01] MEDS: amLODIPine 5 MG TAB PO SCH (07:46)
[2019-02-01] MEDS: TAMSULOSIN 0.4 MG CAP PO SCH (08:28)
--- NOTE | 2019-02-01 12:22 | DS.PDOC ---
Discharge Summary General Date of Admission Jan 27, 2019 at 17:02 Date of Discharge 02/01/19 Discharge Summary TELEGRAPHER AGENT: DR. SCHMITT DISCHARGE DIAGNOSES: OBSTRUCTIVE UROPATHY DUE TO ENLARGED PROSTATE ACUTE KIDNEY INJURY DUE TO OBSTRUCTIVE UROPATHY COPD HTN ESOPHAGEAL STRICTURE HYPERKALEMIA ACUTE METABOLIC ACIDOSIS DUE TO RENAL FAILURE DISCHARGE MEDS: PLS SEE BELOW DISCHARGE INSTRUCTIONS: PCP FU IN 1 WK PCP TO REFER TO UROLOGY FOR OBSTRUCTIVE UROPATHY, ENLARGED PROSTATE IN 1-2WKS. HISTORY OF PRESENTING ILLNESS; Mr. Ma is a 73-year-old gentleman who is regularly followed by the [facility] and has known history of chronic heavy smoking with chronic obstructive pulmonary disease (COPD), hypertension and recent admission on 01/11/19 for hypotension, GUALBERTO, and dysphagia. He was found to have esophageal stricture and he also had a a left gluteal area mass( present for 1 year). He underwent a biopsy of his gluteal mass and esophageal stricture by Dr. Kebede. The esophageal biopsy is negative for cancer and the gluteal mass showed Ruptured and markedly inflamed epidermal inclusion cyst. At that time he was hydrated with IV fluid and his kidney function improved. He was discharged to home and reports that he was feeling well up until a couple of days ago when he started to have difficulty urinating. He became confused over last few days and presented to the emergency room today where he was found to have a BUN of 83 and creatinine 17.3, sodium level was 133 and potassium 7.7. He had a roque placed in the ED which drained 1.6 liters of urine . It was a difficult insertion and the nurse heard a pop when it went in. Renal US showed bilateral hydronephrosis with enlarged heterogenous prostate and thickened trabeculated bladder wall. Patient was admitted for Acute kidney injury, hyperkalemia due to obstructive uropathy due to prostatic enlargement. HOSPITAL COURSE: GUALBERTO due to obstructive uropathy due to enlarged prostate on the back ground of being on ACEI, ARBs and HCTZ. PSA elevated. patient will have to go home with Roque No NSAIDS, ARBS or ACEI now. Follow up with Urology as outpatient. Referral sent. Post obstructive Diuresis with hypophosphatemia will replace phosphate, check magnesium s/p IVF Encourage po fluid intake Hyperkalemia and acidosis due to above now resolved. COPD no issues at present continue home medications Hypertension hold lisinopril, telmisartan, HCTZ on norvasc. Macular degeneration outpatient follow up as scheduled. DVT prophylaxis ordered. DISCHARGE PHYSICAL EXAMINATION VITAL SIGNS: As below HEAD: Atraumatic, normocephalic. NECK: Supple. No jugular venous distention (JVD). LUNGS: Mild bilateral wheezing. Good air entry. HEART: S1, S2 audible. No murmurs appreciated. ABDOMEN: Soft. Positive bowel sounds. No pedal edema. SKIN: Intact. NEUROLOGIC: Patient has positive asterixis. He is awake, alert, oriented times three. Labs and radiology: reviewed Assessment and Plan: Mr. Ma is a 73-year-old gentleman who is regularly followed by the [facility] and has known history of chronic heavy smoking with chronic obstructive pulmonary disease (COPD), hypertension and recent admission on 01/11/19 for hypotension, GUALBERTO, and dysphagia. He was found to have esophageal stricture and he also had a a left gluteal area mass( present for 1 year). He underwent a biopsy of his gluteal mass and esophageal stricture by Dr. Kebede. The esophageal biopsy is negative for cancer and the gluteal mass showed Ruptured and markedly inflamed epidermal inclusion cyst. At that time he was hydrated with IV fluid and his kidney function improved. He was discharged to home and reports that he was feeling well up until a couple of days ago when he started to have difficulty urinating. He became confused over last few days and presented to the emergency room today where he was found to have a BUN of 83 and creatinine 17.3, sodium level was 133 and potassium 7.7. He had a roque placed in the ED which drained 1.6 liters of urine . It was a difficult insertion and the nurse heard a pop when it went in. Renal US showed bilateral hydronephrosis with enlarged heterogenous prostate and thickened trabeculated bladder wall. Patient was admitted for Acute kidney injury, hyperkalemia due to obstructive uropathy due to prostatic enlargement. DISCHARGE LABS, IMAGING, MICROBIOLOGY: PLS SEE BELOW: TIME SPENT ON DISCHARGE: 25 MIN. Vital Signs/I&Os Vital Signs Date Time Temp Pulse Resp B/P (MAP) Pulse Ox O2 Delivery O2 Flow Rate FiO2 02/01/19 07:46 135/63 02/01/19 06:00 97.7 84 18 96 01/27/19 14:47 Room Air I&O- Last 24 Hours up to 6 AM 4/4/19 06:00 Intake Total 1255 ml Output Total 2225 ml Balance -970 ml Microbiology Microbiology 01/27/19 Blood Culture - Preliminary, Resulted No Growth after 72 hours. All specime... 01/27/19 Blood Culture - Preliminary, Resulted No Growth after 72 hours. All specime... Discharge Medications Scheduled Amlodipine Besylate (Norvasc) 5 Mg Tab, 5 MG PO BID Ferrous Sulfate (Ferrous Sulfate) 300 Mg/5 Ml Liq, 5 ML PO BID, (Reported) Folic Acid (Folic Acid) 1 Mg Tab, 1 MG PO DAILY, (Reported) Scheduled PRN Albuterol Sulfate (Proair Hfa) 108 Mcg/Act Aer, 2 PUFF INH Q4H PRN for WHEEZING, (Reported) Allergies Coded Allergies: No Known Allergies (Unverified , 05/19/15) ORAL MARION MD Feb 01, 2019 12:19
[2019-02-01] MEDS ORDERED: FLOM0.4C39 PO (13:04)
[2019-02-01 14:00] VITALS: BP 130/60
== END 2019-02-01 16:53 | disposition home health service (06) | DRG 699 ==
LOC: M ED 14:39 → EDBD 14:39 → M ED INP 17:02 → M ICU 19:43 → M MSPAV 01-28 12:11
PROVIDERS: ADMIT Internal Medicine; ATTEND General Practice
DX: N32.0 Bladder-neck obstruction (principal); E87.2 Acidosis; N17.9 Acute kidney failure, unspecified; E87.5 Hyperkalemia; I10 Essential (primary) hypertension; J44.9 Chronic obstructive pulmonary disease, unspecified; F17.200 Nicotine dependence, unspecified, uncomplicated; Z79.1 Long term (current) use of non-steroidal anti-inflammatories (NSAID); Z79.899 Other long term (current) drug therapy; N40.1 Benign prostatic hyperplasia with lower urinary tract symptoms; D50.9 Iron deficiency anemia, unspecified; R33.9 Retention of urine, unspecified; R27.8 Other lack of coordination; H35.30 Unspecified macular degeneration; E83.39 Other disorders of phosphorus metabolism; E86.0 Dehydration

== ENCOUNTER → 2019-03-13 | Outpatient (CLI) | payer OTHER ==
[~2019-03-13] MED LIST changes: +FLOM0.4C39 PO; +IBUP100C PO; +MELO7.5T35 PO; +NORV5TAB PO
--- NOTE | 2019-03-13 13:00 | REP ---
Prostate sonography: History: Urinary retention due to benign prostatic hyperplasia. Sonographic findings: Trans rectal prostate sonography demonstrates unremarkable seminal vesicles. Prostate gland is heterogeneously enlarged with calcifications and cystic changes noted. Glandular dimensions are measured at 6.4 x 5.3 x 7.7 cm with a calculated glandular volume of 136 ml. Transrectal sonographic guidance is provided to Dr. Perez who performed trans rectal ultrasound guided needle biopsy procedure . Electronically Signed by Raheel Gonzalez MD 03/13/2019 12:52 P
== END ==
LOC: M SMT PRO 09:24
PROVIDERS: ATTEND Urology
DX: C61 Malignant neoplasm of prostate (principal); R97.20 Elevated prostate specific antigen [PSA]; N40.1 Benign prostatic hyperplasia with lower urinary tract symptoms; R33.8 Other retention of urine
CPT/HCPCS: 55700; 76872; 76942; G0416

== ENCOUNTER → 2019-04-06 | Outpatient (REF) | payer OTHER | LOC: M SMT 12:35 | PROVIDERS: ATTEND Urology | DX: R33.8 Other retention of urine (principal); C61 Malignant neoplasm of prostate ==

== ENCOUNTER → 2019-05-11 | Outpatient (REF) | payer OTHER ==
[~2019-05-11] MED LIST changes: +DIPH25CA PO
[2019-05-11 18:11] LABS: AMORPHOUS SEDIMENT SMALL (NEGATIVE); APPEARANCE, URINE HAZY (CLEAR); BACTERIA, URINE AUTO 1+ (NEGATIVE); BILIRUBIN, URINE AUTO NEGATIVE (NEGATIVE); BLOOD, URINE BLOOD 2+ (NEGATIVE); COLOR, URINE YELLOW (YELLOW); GLUCOSE, URINE (UA) AUTO NEGATIVE (NEGATIVE); KETONE, URINE AUTO NEGATIVE (NEGATIVE); LEUKOCYTE ESTERASE, URINE AUTO 3+ (NEGATIVE); NITRITE, URINE AUTO NEGATIVE (NEGATIVE); PROTEIN, URINE AUTO NEGATIVE (NEGATIVE); RBC, URINE AUTO 34 /HPF (0-3); SPECIFIC GRAVITY URINE AUTO 1.015 (1.002-1.035); SQUAMOUS EPITHELIAL CELL UR AU 0 /HPF (0-6); UROBILINOGEN, URINE AUTO 0.2 mg/dL (0.0-2.0); WBC, URINE AUTO 34 /HPF (0-3)
== END ==
LOC: M SMT 16:58
PROVIDERS: ATTEND Urology
DX: R33.8 Other retention of urine (principal)

== ENCOUNTER → 2019-06-07 | Outpatient (REF) | payer OTHER ==
[~2019-06-07] MED LIST changes: +CIPR500T3 PO; -DIPH25CA PO; +DIPH25CA32 PO; +FERR325T3 PO; +FLAG500T PO; +OXYC1TAB23 PO; +SPIR1CAP INH; +SYMB16INH INH
== END ==
LOC: M SMT 17:17
PROVIDERS: ATTEND Urology
DX: Z01.818 Encounter for other preprocedural examination (principal); C61 Malignant neoplasm of prostate; N39.0 Urinary tract infection, site not specified

== ENCOUNTER → 2019-06-28 | Outpatient (CLI) | payer OTHER ==
[2019-06-28 13:24] LABS: APPEARANCE, URINE CLEAR (CLEAR); BACTERIA, URINE AUTO NEGATIVE (NEGATIVE); BILIRUBIN, URINE AUTO NEGATIVE (NEGATIVE); BLOOD, URINE BLOOD 1+ (NEGATIVE); COLOR, URINE YELLOW (YELLOW); GLUCOSE, URINE (UA) AUTO NEGATIVE (NEGATIVE); KETONE, URINE AUTO NEGATIVE (NEGATIVE); LEUKOCYTE ESTERASE, URINE AUTO 2+ (NEGATIVE); MUCUS, URINE SMALL (NEGATIVE); NITRITE, URINE AUTO NEGATIVE (NEGATIVE); PROTEIN, URINE AUTO NEGATIVE (NEGATIVE); RBC, URINE AUTO 54 /HPF (0-3); SPECIFIC GRAVITY URINE AUTO 1.014 (1.002-1.035); SQUAMOUS EPITHELIAL CELL UR AU 0 /HPF (0-6); UROBILINOGEN, URINE AUTO 0.2 mg/dL (0.0-2.0); WBC, URINE AUTO 12 /HPF (0-3)
[2019-06-28 13:24] LABS: HEMATOCRIT 44.5 % (42.0-52.0); MEAN CORPUSCULAR HEMOGLOBIN 27.1 pg (27.0-33.0); MEAN CORPUSCULAR HGB CONC 31.5 g/dl (32.0-36.5); MEAN CORPUSCULAR VOLUME 86.2 fl (80.0-96.0); PLATELET COUNT, AUTOMATED 404 10^3/uL (150-450); RED BLOOD COUNT 5.16 10^6/uL (4.30-6.10); WHITE BLOOD COUNT 12.7 10^3/uL (4.0-10.0)
[2019-06-28 13:44] LABS: BLOOD UREA NITROGEN 12 MG/DL (7-18); CALCIUM LEVEL 9.8 MG/DL (8.8-10.2); CARBON DIOXIDE LEVEL 28 MEQ/L (21-32); CHLORIDE LEVEL 102 MEQ/L (98-107); GLOMERULAR FILTRATION RATE > 60.0 (>42); GLUCOSE, FASTING 101 MG/DL (70-100); POTASSIUM SERUM 4.4 MEQ/L (3.5-5.1); SODIUM LEVEL 135 MEQ/L (136-145)
== END ==
LOC: M SMT 10:57
PROVIDERS: ATTEND Urology
DX: Z01.818 Encounter for other preprocedural examination (principal); C61 Malignant neoplasm of prostate; N28.89 Other specified disorders of kidney and ureter

== ENCOUNTER 2019-07-05 13:25 | Emergency (ER) | payer OTHER ==
[~2019-07-05] VITALS: Ht 182.9 cm; Wt 77.3 kg
[~2019-07-05 13:25] MED LIST changes: -ALBUTEROL SULFATE 2.5 MG/0.5 ML INH NEB SOLN INH ONE; -CIPR500T3 PO; -FERR325T3 PO; -FLAG500T PO; -HEPARIN SOD (PORCINE) 5000 UNITS/ML VIAL SQ ONE; -LIDOCAINE 2% INJ 100 MG/5 ML SDV (FOR ANES.) As Ordered ONE; -LR 1,000 ML IV ONE; -MIDAZOLAM INJ 2 MG/2 ML VIAL (J2250) As Ordered ONE; -OXYC1TAB23 PO; -PERCOCET 5MG/325MG TAB As Ordered ONE; -PERCOCET 5MG/325MG TAB PO ONE; -PERCOCET 5MG/325MG TAB PO PRN; -ROCURONIUM BROMIDE 50 MG/5 ML VIAL As Ordered ONE; -SYMB16INH INH; -ceFAZolin SOD 2 GM in IV 1 EA IV ONE; -fentaNYL 250 MCG/5 ML INJECTION (J3010) As Ordered ONE; -propofoL 200 MG/20 ML VIAL As Ordered ONE
[2019-07-05 14:40] LABS: BASO % 0.2 % (0.0-1.0); EOS % 0.2 % (0.0-3.0); HEMATOCRIT 38.3 % (42.0-52.0); HEMOGLOBIN 12.5 g/dl (13.5-17.5); LYMPH # 1.5 10^3/uL (1.5-5.0); LYMPH % 8.7 % (24.0-44.0); MEAN CORPUSCULAR HEMOGLOBIN 26.9 pg (27.0-33.0); MEAN CORPUSCULAR HGB CONC 32.6 g/dl (32.0-36.5); MEAN CORPUSCULAR VOLUME 82.5 fl (80.0-96.0); MONO # 1.5 10^3/uL (0.0-0.8); MONO % 8.7 % (0.0-5.0); NEUTROPHILS % 81.7 % (36.0-66.0); PLATELET COUNT, AUTOMATED 319 10^3/uL (150-450); RED BLOOD COUNT 4.64 10^6/uL (4.30-6.10); WHITE BLOOD COUNT 17.2 10^3/uL (4.0-10.0)
[2019-07-05] MEDS ORDERED: NS 1,000 ML IV ONE (14:45)
[2019-07-05] MEDS: HYDROMORPHONE HCL 0.5 MG/ 0.5 ML SYRINGE (J1170 PER 1) IV PRN ×2 (15:01→15:47)
[2019-07-05 15:05] LABS: ERYTHROCYTE SEDIMENTATION RATE 57 mm/hr (0-20)
[2019-07-05 15:14] LABS: BLOOD UREA NITROGEN 24 MG/DL (7-18); CALCIUM LEVEL 9.1 MG/DL (8.8-10.2); CARBON DIOXIDE LEVEL 25 MEQ/L (21-32); CHLORIDE LEVEL 101 MEQ/L (98-107); CREATININE FOR GFR 0.94 MG/DL (0.70-1.30); GLOMERULAR FILTRATION RATE > 60.0 (>42); GLUCOSE, FASTING 98 MG/DL (70-100); POTASSIUM SERUM 4.6 MEQ/L (3.5-5.1); SODIUM LEVEL 133 MEQ/L (136-145)
[2019-07-05] MEDS ORDERED: ISOVUE-370 76% 100ML VIAL (Q9967) As Ordered ONE (16:44)
[2019-07-05] MEDS ORDERED: PIPERACILLIN/TAZOBACTAM SOD 3.375 GM in D5W MINI-BAG PLUS 50 ML IV ONE (17:00)
[2019-07-05] MEDS ORDERED: HYDROMORPHONE HCL 0.5 MG/ 0.5 ML SYRINGE (J1170 PER 1) IV ONE (17:15)
--- NOTE | 2019-07-05 17:25 | REPVR ---
EXAM: CT Abdomen and Pelvis With Contrast EXAM DATE/TIME: 07/05/2019 4:53 PM CLINICAL HISTORY: 74 years old, male; Other: Hernia; Additional info: Hernia, right inguinal TECHNIQUE: Imaging protocol: Computed tomography of the abdomen and pelvis with intravenous contrast. Radiation optimization: All CT scans at this facility use at least one of these dose optimization techniques: automated exposure control; mA and/or kV adjustment per patient size (includes targeted exams where dose is matched to clinical indication); or iterative reconstruction. Contrast material: ISOVUE 370; Contrast volume: 100 ml; Contrast route: IV; COMPARISON: US PROSTATE BIOPSY 03/13/2019 10:31 AM FINDINGS: Lungs: There is bibasilar compressive atelectasis. Calcified granuloma left lower lobe. Liver: Normal. No mass. Gallbladder and bile ducts: Hydropic gallbladder. No gallbladder wall thickening or calculi demonstrated. No pericolic cystic fluid. Pancreas: Normal. No ductal dilation. Spleen: The spleen demonstrates punctate calcifications, consistent with remote granulomatous organism exposure. Adrenals: Normal. No mass. Kidneys and ureters: Bilateral renal calcifications likely renovascular due to their linear shape. Multiple bilateral cysts measure up to 1.9 cm and the pericolic aspect of the right kidney and 2.6 cm in the cortex of the right kidney. Stomach and bowel: Large right inguinal hernia containing a loop of small bowel demonstrating stasis of intraluminal contents as well hyperdensity in the wall of the bowel which may represent enhancement related to incarceration. Also noted is fluid within the hernia sac which demonstrates diffuse thickening of its wall also consistent with incarceration. There is increased feces throughout the colon consistent with constipation. There is increased feces throughout the colon consistent with constipation. Appendix: No evidence of appendicitis. Intraperitoneal space: Unremarkable. No free air. No significant fluid collection. Vasculature: The aorta demonstrates moderate atherosclerotic calcification. Lymph nodes: Unremarkable. No enlarged lymph nodes. Bladder: Pringle catheter within a thickwalled urinary bladder. Bladder findings likely related to changes of chronic bladder outlet obstruction. Reproductive: The prostate gland demonstrates marked hyperplasia. Bones/joints: Moderate central spinal stenosis L2-L3, moderate to severe central spinal stenoses L3-L4 and L4-L5. Disc osteophyte complex demonstrated at L5-S1. The spine demonstrates mild degenerative changes. Soft tissues: Moderate dilatation of distal small bowel immediately proximal to the right inguinal hernia. Findings consistent with early small bowel obstruction. Other findings: Nodularity demonstrated along the inferior aspect of the right major fissure likely postinflammatory including a dominant 6 mm nodule. IMPRESSION: 1. Nodularity demonstrated along the inferior aspect of the right major fissure likely postinflammatory including a dominant 6 mm nodule. For patients at low risk (minimal or absent history of smoking and of other known risk factors), no routine follow-up is indicated. For patients at high risk (history of smoking or of other known risk factors), consider optional CT at 12 months. (Brandon et al., Fleischner Society, 2017) 2. Marked prostatic hyperplasia. 3. Large incarcerated right inguinal hernia. 4. There is increased feces throughout the colon consistent with constipation. 5. Moderate dilatation of distal small bowel immediately proximal to the right inguinal hernia. Findings consistent with early proximal small bowel obstruction. 6. There is increased feces throughout the colon consistent with constipation. Electronically signed by: Clemente Conti On 07/05/2019 17:25:14 PM
[2019-07-05 19:43] VITALS: BP 140/61
--- NOTE | 2019-07-05 20:25 | REP ---
SCROTAL ULTRASOUND: Real-time sonographic evaluation of the scrotum and contents performed. Testicles normal in size and echotexture, right testicle measuring 4.3 x 2.9 x 2.5 cm. Left testicle measures 4.6 x 2.5 x 2.7 cm. There is a subcentimeter cyst in the mid right testicle. This measures 8 mm maximally. Epididymis is not readily identified bilaterally. There is a right inguinal hernia, which extends into the right scrotal sac. There is also a large complex right hydrocele with multiple internal septations. Arterial blood flow and waveforms are not identified in the right testicle, but there is internal venous blood flow readily apparent. There is arterial flow within the left testicle with resistive index 0.59. There are no other significant findings. IMPRESSION: Subcentimeter cyst right testicle. Arterial waveforms not identified in the right testicle, but there is venous flow readily identified within the right testicle. No left testicular torsion. Right inguinal hernia extends into the right scrotal sac. There is a large right hydrocele which is complex and contains multiple septations. The poor arterial flow to the right testicle is most likely due to compression of the testicular artery in the region of the right inguinal canal. Electronically Signed by J Luis Welch MD 07/06/2019 10:57 A
--- NOTE | 2019-07-06 18:07 | CR ---
DATE OF CONSULTATION: 07/05/2019 REASON FOR CONSULTATION: Inguinal hernia. HISTORY OF PRESENT ILLNESS: The patient 74-year-old male, well known to me. I have seen him multiple times in the office for a gluteal mass. He now presents with pain and swelling of the right groin. He was scheduled to have a robotic prostatectomy due to prostate cancer by Dr. Perez today; however, in preop he had extensive swelling of the scrotum, so he was brought to the emergency room for evaluation. Emergency room (ER) was unable to reduce it. CT scan did confirm that there was likely incarcerated hernia, so I was called to evaluate. By time I saw him, he had been given some pain medications and ice. I reviewed his CT scan, which did confirm that he has bilateral inguinal hernias, left-side containing fat, the right-sided containing a large portion of the small intestine. I then was able to identify this easily on physical exam, and with some steady pressure for about a minute I was able to reduce the entire thing. After completely reducing it, I did still feel large hernia on the right. With every cough it was popping in and out, and was a small hernia on the left side as well. He states he has only had this for a few weeks. Prior that he never had any problems with any hernias or lumps in the groin. No prior inguinal hernia repair and no prior trauma to the area. He was, however, a two pack a day smoker and does have a history of extensive coughing, which is likely the cause of all of this along with some of his prostate issues. PAST MEDICAL HISTORY: 1. Hypertension. 2. Tobacco abuse. 3. Chronic obstructive pulmonary disease (COPD). 4. Left gluteal mass. PAST SURGICAL HISTORY: 1. Esophagogastroduodenoscopies (EGDs). 2. Biopsies. ALLERGIES: None. HOME MEDICATIONS: Please see medication reconciliation. FAMILY HISTORY: Noncontributory. SOCIAL HISTORY: He smokes pack a day now. Used to be two packs a day. Denies alcohol or drug abuse. REVIEW OF SYSTEMS: Pertinent positives and negatives stated in the history of present illness (HPI). PHYSICAL EXAMINATION GENERAL: Alert and oriented times three. No acute stress. VITAL SIGNS: Temperature 98.2, pulse 101, respirations 18, blood pressure 140/61, pulse oximetry 98% on room air. HEENT: Pupils equally round and react to light accommodation. HEART: S1, S2, regular rate and rhythm. LUNGS: Clear to auscultation bilaterally. ABDOMEN: Soft. Tender to palpation in the right groin. There is a large swelling in the right scrotum and a large inguinal hernia that was reduced but did require a lot of pressure. Once it was reduced, it was easily popping back out with any coughing or any pressure in his abdomen. There was also another palpable hernia on the left side as well that was reducible. EXTREMITIES: No clubbing, cyanosis, or edema. LABORATORY DATA: His white count 17.2, hemoglobin 12.5, platelets 319. Potassium 4.6. IMAGING STUDIES: CT abdomen and pelvis showed a large incarcerated right inguinal hernia, increased feces throughout the colon consistent constipation, moderate dilation of distal small bowel immediately proximal to the right inguinal hernia, consistent with early proximal small-bowel obstruction. ASSESSMENT AND PLAN: The patient is a 74-year-old male with a reducible left inguinal hernia and an incarcerated right inguinal hernia that I was able to reduce with significant pressure. Also a known history of prostate cancer. I spoke with Dr. Perez, who is going to try to get him back on the schedule for next Tuesday morning. As long as I can get authorization through his insurance, we will plan to complete a robotic inguinal hernia repair at the same time as his robotic prostatectomy. For now, the hernia is reduced. I recommended that he hold pressure over the right groin every time he is coughing. Otherwise, keep an eye on it and call us if there are any problems between now and next week, and we will plan on repairing it without mesh as long as he gets approval from the [place] [place]
--- NOTE | 2019-07-08 13:07 | ED PDOC ---
Post-Departure Follow-Up dr goncalves faxed formal report of scrotal us for fu Le Hanson MD Jul 08, 2019 13:07
== END 2019-07-05 19:55 | disposition home or self-care (01) ==
LOC: M ED 13:25
DX: K40.90 Unilateral inguinal hernia, without obstruction or gangrene, not specified as recurrent (principal); I10 Essential (primary) hypertension; J44.9 Chronic obstructive pulmonary disease, unspecified; Z79.899 Other long term (current) drug therapy; F17.210 Nicotine dependence, cigarettes, uncomplicated
CPT/HCPCS: 36415; 74177; 76870; 80048; 81001; 83605; 85025; 85652; 86140; 86850; 86900; 86901; 87040; 87086; 93976; 96361; 96365; 96366; 96375; 96376; 99284; J1170; J2543; J3010; Q9967

== ENCOUNTER → 2019-07-05 | Outpatient (CLI) | payer OTHER ==
[~2019-07-05] VITALS: Ht 182.9 cm; Wt 76.7 kg
[~2019-07-05] MED LIST changes: +ALBUTEROL SULFATE 2.5 MG/0.5 ML INH NEB SOLN INH ONE; +HEPARIN SOD (PORCINE) 5000 UNITS/ML VIAL SQ ONE; +LIDOCAINE 2% INJ 100 MG/5 ML SDV (FOR ANES.) As Ordered ONE; +LR 1,000 ML IV ONE; +MIDAZOLAM INJ 2 MG/2 ML VIAL (J2250) As Ordered ONE; +PERCOCET 5MG/325MG TAB As Ordered ONE; +PERCOCET 5MG/325MG TAB PO ONE; +PERCOCET 5MG/325MG TAB PO PRN; +ROCURONIUM BROMIDE 50 MG/5 ML VIAL As Ordered ONE; +ceFAZolin SOD 2 GM in IV 1 EA IV ONE; +fentaNYL 250 MCG/5 ML INJECTION (J3010) As Ordered ONE; +propofoL 200 MG/20 ML VIAL As Ordered ONE
[2019-07-05 11:55] VITALS: BP 108/66
== END ==
LOC: M LAB 11:00 → M SDC 11:00 → UNDOADMIN 11:29 → M OR 11:29 → EDSTATUS 13:00
PROVIDERS: ATTEND Urology
DX: C61 Malignant neoplasm of prostate (principal)

== ENCOUNTER 2019-07-09 17:47 | Emergency (ER) | payer OTHER ==
[~2019-07-09] VITALS: Ht 182.9 cm; Wt 77.4 kg
[2019-07-09 19:58] VITALS: BP 144/66
[2019-07-09 21:47] LABS: HEMATOCRIT 37.3 % (42.0-52.0); MEAN CORPUSCULAR HEMOGLOBIN 27.6 pg (27.0-33.0); MEAN CORPUSCULAR HGB CONC 32.2 g/dl (32.0-36.5); MEAN CORPUSCULAR VOLUME 85.7 fl (80.0-96.0); PLATELET COUNT, AUTOMATED 409 10^3/uL (150-450); RED BLOOD COUNT 4.35 10^6/uL (4.30-6.10); WHITE BLOOD COUNT 11.3 10^3/uL (4.0-10.0)
[2019-07-09 22:14] LABS: BLOOD UREA NITROGEN 11 MG/DL (7-18); CALCIUM LEVEL 9.1 MG/DL (8.8-10.2); CARBON DIOXIDE LEVEL 25 MEQ/L (21-32); CHLORIDE LEVEL 102 MEQ/L (98-107); CREATININE FOR GFR 0.76 MG/DL (0.70-1.30); GLOMERULAR FILTRATION RATE > 60.0 (>42); GLUCOSE, FASTING 109 MG/DL (70-100); POTASSIUM SERUM 4.4 MEQ/L (3.5-5.1); SODIUM LEVEL 137 MEQ/L (136-145)
--- NOTE | 2019-07-09 23:03 | REPVR ---
EXAM: US Scrotum EXAM DATE/TIME: 07/09/2019 10:50 PM CLINICAL HISTORY: 74 years old, male; Swelling, testicles or scrotum; Additional info: Enlarged swollen TECHNIQUE: Imaging protocol: Real-time ultrasound of the scrotum and contents with color Doppler and image documentation. COMPARISON: Scrotal, US 07/05/2019 3:12 PM FINDINGS: Right Testicle: Right testicle measures 4.4 x 1.9 x 4.1 cm. Right posterior mid testicle small anechoic without any vascularity measuring 6.4 x 3.6 x 8.0 cm. No increased vascularity. Findings are unchanged from prior study. No torsion. Normal vascular flow. Peak systolic velocity is 4.1 cm/s and end-diastolic velocity is 1.8 cm/s. Resistive index is 0.5 subcentimeter. Left Testicle: Left testicle measures 4.3 x 2.4 x 3.4 cm. No mass. No torsion. Normal vascular flow. Peak systolic velocity is 3.1 cm/s and end-diastolic velocity is 1.7 cm/s. Resistive index is 0.45. Epididymides: Left epididymis is unremarkable measuring 13.4 cm. Scrotum: Bowel is seen superior to the right testicle with complex hydrocele with septations on the right side. IMPRESSION: No testicular torsion. Large right complex septated hydrocele. Bowel is seen superior to the right testicle with complex hydrocele with septations on the right side. Electronically signed by: Sapna Kee On 07/09/2019 23:03:07 PM
--- NOTE | 2019-07-09 23:10 | REPVR ---
EXAM: US Pelvis Limited, Male EXAM DATE/TIME: 07/09/2019 10:50 PM CLINICAL HISTORY: 74 years old, male; Mass, lump, or swelling; Other: RT inguinal canal and scrotal sac; Additional info: Enlarged swollen, lump HX of hernia TECHNIQUE: Imaging protocol: Real-time pelvic ultrasound with image documentation. COMPARISON: CT ABD/PEL W/IV CONTRAST ONLY 07/05/2019 4:52 PM FINDINGS: Soft tissues: Large right-sided nonreducible inguinal hernia containing bowel and fat. Minimal to no peristalsis is seen in the herniated bowel, unchanged from prior study likely representing incarcerated hernia. Small left reducible fat containing hernia on Valsalva. No bowel is seen in the left hernial sac. IMPRESSION: Large right-sided nonreducible inguinal hernia containing bowel and fat. Minimal to no peristalsis is seen in the herniated bowel, unchanged from prior study likely representing incarcerated hernia. Small left reducible fat containing hernia on Valsalva. No bowel is seen in the left hernial sac. Electronically signed by: Sapna Kee On 07/09/2019 23:10:12 PM
[2019-07-11] MEDS ORDERED: OXYC1TAB23 PO (07:39)
[2019-07-11] MEDS ORDERED: SYMB16INH INH (07:39)
--- NOTE | 2019-07-17 13:06 | ED PDOC ---
Post-Departure Follow-Up dr gray faxed formal report of pelvic us for fu Le Hanson MD Jul 17, 2019 13:06
== END 2019-07-10 00:37 | disposition home or self-care (01) ==
LOC: M ED 17:47
DX: N43.3 Hydrocele, unspecified (principal); K40.30 Unilateral inguinal hernia, with obstruction, without gangrene, not specified as recurrent; I10 Essential (primary) hypertension; J44.9 Chronic obstructive pulmonary disease, unspecified; C61 Malignant neoplasm of prostate; H35.30 Unspecified macular degeneration; Z79.899 Other long term (current) drug therapy; F17.210 Nicotine dependence, cigarettes, uncomplicated

== ENCOUNTER 2019-07-11 06:53 | Inpatient (IN) | payer OTHER ==
[2019-07-11] VITALS (7 sets, daily range): BP systolic 114–124; BP diastolic 47–67
[~2019-07-11] VITALS: Ht 182.9 cm; Wt 77.1 kg
[~2019-07-11 06:53] MED LIST changes: +HEPARIN SOD (PORCINE) 5000 UNITS/ML VIAL SQ ONE; +LR 1,000 ML IV ONE
[2019-07-11] MEDS ORDERED: PROPOFOL 200 MG/20 ML VIAL As Ordered ONE (07:37)
[2019-07-11] MEDS ORDERED: fentaNYL 250 MCG/5 ML INJECTION (J3010) As Ordered ONE (07:37)
[2019-07-11] MEDS ORDERED: LIDOCAINE 2% INJ 100 MG/5 ML SDV (FOR ANES.) As Ordered ONE (07:37)
[2019-07-11] MEDS ORDERED: ROCURONIUM BROMIDE 50 MG/5 ML VIAL As Ordered ONE ×2 (07:37→09:27)
[2019-07-11] MEDS ORDERED: dexameTHASONE 4 MG/ML 1ML VIAL (J1100) As Ordered ONE (07:37)
[2019-07-11] MEDS ORDERED: MIDAZOLAM INJ 2 MG/2 ML VIAL (J2250) As Ordered ONE (07:37)
[2019-07-11] MEDS ORDERED: ONDANSETRON 4MG/2ML VIAL (J2405) As Ordered ONE (07:37)
[2019-07-11] MEDS ORDERED: OXYC1TAB23 PO (07:39)
[2019-07-11] MEDS ORDERED: SYMB16INH INH (07:39)
[2019-07-11] MEDS ORDERED: ALBUTEROL SULFATE 2.5 MG/0.5 ML INH NEB SOLN INH ONE (08:00)
[2019-07-11] MEDS ORDERED: LIDOCAINE 1% SDV INJ 30 ML VIAL As Ordered ONE (08:07)
[2019-07-11] MEDS ORDERED: BUPIVACAINE/EPIN 0.25% 30 ML VIAL As Ordered ONE (08:07)
[2019-07-11] MEDS ORDERED: BUPIVACAINE HCL 0.25% 30 ML VIAL As Ordered ONE (08:08)
[2019-07-11] MEDS ORDERED: NS 1,000 ML IV SCH (08:22)
[2019-07-11] MEDS ORDERED: PERCOCET 5MG/325MG TAB PO PRN ×2 (08:30)
[2019-07-11] MEDS ORDERED: MORPHINE 4 MG/ML 1ML VIAL/SYRINGE (J2270) IV PRN (08:30)
[2019-07-11] MEDS ORDERED: ALBUTEROL 90 MCG/ACT 8GM HFA INHALER INH PRN ×2 (08:30→12:00)
[2019-07-11] MEDS ORDERED: ONDANSETRON 4MG/2ML VIAL (J2405) IV PRN ×3 (08:30→12:30)
[2019-07-11] MEDS ORDERED: ACETAMINOPHEN TAB 650MG DOSE (2X325MG) PO PRN (08:30)
[2019-07-11] MEDS: FOLIC ACID 1 MG TAB PO SCH (09:00)
[2019-07-11] MEDS: TAMSULOSIN 0.4 MG CAP PO SCH (09:00)
[2019-07-11] MEDS ORDERED: KETOROLAC 60 MG/2 ML VIAL (J1885) As Ordered ONE (09:35)
[2019-07-11] MEDS ORDERED: ACETAMINOPHEN 1000MG 100ML IV BTL (OFIRMEV) (J0131 PER 10MG) As Ordered ONE (09:35)
[2019-07-11] MEDS ORDERED: SUGAMMADEX SODIUM 500 MG/5 ML VIAL (BRIDION) As Ordered ONE (09:35)
[2019-07-11] MEDS: KCL 20MEQ IN D5/0.45NS 1000ML 1,000 ML IV SCH ×2 (12:00→20:08)
--- NOTE | 2019-07-11 12:07 | ROOPDOC ---
[facility] Report Of Operation Report of Operation DATE OF PROCEDURE: 07/11/19 PREPROCEDURE DIAGNOSES: Prostate Cancer. POSTPROCEDURE DIAGNOSES: Prostate Cancer. PROCEDURE: Aborted Robotic-assisted Laparoscopic Radical Prostatectomy. SURGEON: Carmelina Albarran MD FRUIT HARVESTER: Jennifer Garcia NP ANESTHESIA: General. OPERATIVE INDICATIONS: This is a 64 year old male with clinical T1c [place] 3+3 prostate cancer, here today for treatment. DESCRIPTION OF PROCEDURE: The patient was brought to the operating room and general anesthesia was induced. Prophylactic antibiotics were infused. He was then placed in the supine position and prepped and draped in the usual sterile fashion. At this point, a Pringle catheter was inserted into the bladder and the balloon was filled with 10 mL of sterile water. We then made a midline incision just above the umbilicus for an 8 mm port. A Veress needle was utilized to achieve pneumoperitoneum. Next, an 8 mm port was inserted into the incision and subsequently a camera was inserted. There were no injuries from the Veress needle or initial trocar placement. Additional ports, including 2 left hand robotic ports and 1 right hand robotic ports were placed in line beneath the level of the umbilicus. A 12mm medical clerical assistant port was placed in the right upper abdomen. The robot was docked. Upon inspection of the abdomen, the patient was found to have fecal matter in the lower right pelvis. Dr. Kebede was in the room already to repair the patients right inguinal hernia per preop discussion. Upon inspection of the bowel in the right inguinal hernia, the patient was found to have a cecal perforation. Because of the perforation and gross contamination in the abdomen, I elected not to proceed with the prostatectomy. The case was turned over to Dr. Kebede who then proceeded to resect the perforated section of bowel and repair the hernia. Please see his dictation for further details. ESTIMATED BLOOD LOSS: 5mL SPECIMENS: None COMPLICATIONS: None PLAN: The patient will be admitted to the general surgery service. Assuming he recovers well from his bowel surgery, we will likely bring him back to the operating room in a few months for treatment of his prostate cancer. CARMELINA ALBARRAN MD Jul 11, 2019 12:07
[2019-07-11] MEDS ORDERED: fentaNYL 100 MCG/2 ML INJECTION (J3010) As Ordered ONE (12:13)
[2019-07-11] MEDS: fentaNYL 100 MCG/2 ML INJECTION (J3010) IV PRN ×4 (12:15→12:35)
[2019-07-11] MEDS ORDERED: LR 1,000 ML IV SCH (12:30)
[2019-07-11] MEDS ORDERED: oxyCODONE 5MG TAB PO PRN (12:30)
[2019-07-11] MEDS ORDERED: HEPARIN SOD (PORCINE) 5000 UNITS/ML VIAL SC SCH (14:00)
--- NOTE | 2019-07-11 14:29 | CR ---
DATE OF CONSULTATION: 07/11/[address] KEBEDE PRIMARY CARE PROVIDER: [facility] This is a medical consultation on Yennifer Ma, a 74-year-old, whose recent medical history is significant for hospitalization on the hospitalist service on 01/27/2019 to 02/01/2019 for acute kidney injury secondary to obstructive uropathy from what proved to be prostate cancer. He was scheduled for an elective robotic assisted radical prostatectomy when he presented to the emergency room on 07/06/2019 with a large right inguinal hernia (he has bilateral inguinal hernias, the right was incarcerated on CT scan). It was reduced by Dr. Kebede in the emergency room and plans were made for him to have robotic inguinal hernia repair at the same time as robotic prostatectomy. This was going to happen today when unfortunately he was found to have had a perforated cecum within the recurrent right inguinal hernia requiring them to abort the procedure and the case was handed over to Dr. Kebede. The hospitalist has been consulted for medical care. PAST MEDICAL HISTORY: Shows tobacco abuse, chronic obstructive pulmonary disease (COPD), left gluteal mass which is known to be benign, hypertensive heart disease, and he had acute kidney injury with obstructive uropathy and bladder obstruction. Creatinine was 10.9 then and has returned now to baseline of 0.76. ALLERGIES: None known. SOCIAL HISTORY: He lives by himself. Heavy smoker. No alcohol use. FAMILY HISTORY: Negative for renal disease. MEDICATIONS: Percocet as needed. Spiriva one inhalation daily. Meloxicam 7.5 mg daily. Albuterol 2 puffs four times a day as needed. Norvasc 5 mg daily. Symbicort 160/4.5 two puffs twice a day. Ferrous sulfate 325 mg twice a day. Folic acid 1 mg daily, tamsulosin 0.4 mg daily. REVIEW OF SYSTEMS: Denies chest pain, shortness of breath, cough, wheeze, hemoptysis. PHYSICAL EXAMINATION: Vital signs per flow sheet. General Appearance: He was seen in the recovery room postoperatively. He is alert and answers questions. HEENT: Grossly unremarkable. Lungs: Decreased breath sounds. Heart: Regular rhythm. No murmur. Abdomen: Soft. Extremities: Without clubbing, cyanosis or edema. Moves arms and legs with equal strength. LABS: There are no labs drawn today. IMPRESSION: 1. Perforated cecum. Per surgery. The case was discussed with Dr. Kebede. 2. Hypertensive heart disease. Continue his amlodipine 5 mg daily. 3. COPD. Will continue Symbicort. Nebulized bronchodilator has been ordered with albuterol inhaler 2 puffs every 4 hours as needed. 4. Benign prostatic hypertrophy, prostate cancer. Per urology. Continue with his Flomax. 5. Deep vein thrombosis (DVT) prophylaxis. Subcutaneous heparin has been ordered.
[2019-07-11] MEDS: CIPROFLOXACIN 400 MG in APPROPRIATE DILUENT 1 EA IV SCH (14:47)
[2019-07-11] MEDS: metroNIDAZOLE 500 MG in APPROPRIATE DILUENT 1 EA IV SCH ×2 (16:15→21:13)
[2019-07-11] MEDS: NORCO, ANEXSIA 5/325MG TABLET (HYDROcodone/ACETAMINOPHEN) PO PRN ×2 (16:16→23:52)
[2019-07-11] MEDS ORDERED: ceFAZolin SOD 1 GM in D5W MINI-BAG PLUS 50 ML IV SCH (17:00)
[2019-07-11] MEDS: KETOROLAC 30 MG/ML VIAL (J1885) IV PRN (18:17)
[2019-07-11] MEDS: SYMBICORT 160/4.5MCG INHALER 6GM INH SCH (18:26)
[2019-07-11] MEDS: SENOKOT S TAB PO SCH (20:00)
[2019-07-11] MEDS: FAMOTIDINE 20 MG TAB PO SCH (20:00)
[2019-07-11] MEDS: FERROUS SULFATE 325MG TAB PO SCH (20:00)
[2019-07-11] MEDS: amLODIPine 5 MG TAB PO SCH (20:07)
[2019-07-11] MEDS ORDERED: amLODIPine 5 MG TAB PO SCH (21:00)
[2019-07-11] MEDS ORDERED: DOCUSATE SODIUM 100 MG CAP PO SCH (21:00)
[2019-07-11] MEDS ORDERED: SYMBICORT 160/4.5MCG INHALER 6GM INH SCH (21:00)
[2019-07-11] MEDS ORDERED: diphenhydrAMINE 25 MG CAP PO ONE (21:30)
[2019-07-12] MEDS: MORPHINE 4 MG/ML 1ML VIAL/SYRINGE (J2270) IV PRN ×2 (00:28→05:43)
[2019-07-12] MEDS: CIPROFLOXACIN 400 MG in APPROPRIATE DILUENT 1 EA IV SCH ×2 (00:28→12:44)
[2019-07-12 02:35] VITALS: BP 112/58
[2019-07-12] MEDS: KCL 20MEQ IN D5/0.45NS 1000ML 1,000 ML IV SCH (04:58)
[2019-07-12] MEDS: metroNIDAZOLE 500 MG in APPROPRIATE DILUENT 1 EA IV SCH ×3 (05:00→22:19)
[2019-07-12 06:07] LABS: HEMATOCRIT 33.7 % (42.0-52.0); HEMOGLOBIN 10.7 g/dl (13.5-17.5); MEAN CORPUSCULAR HEMOGLOBIN 26.6 pg (27.0-33.0); MEAN CORPUSCULAR HGB CONC 31.8 g/dl (32.0-36.5); MEAN CORPUSCULAR VOLUME 83.8 fl (80.0-96.0); PLATELET COUNT, AUTOMATED 420 10^3/uL (150-450); RED BLOOD COUNT 4.02 10^6/uL (4.30-6.10); WHITE BLOOD COUNT 10.7 10^3/uL (4.0-10.0)
[2019-07-12 06:25] LABS: BLOOD UREA NITROGEN 14 MG/DL (7-18); CALCIUM LEVEL 8.3 MG/DL (8.8-10.2); CARBON DIOXIDE LEVEL 25 MEQ/L (21-32); CHLORIDE LEVEL 104 MEQ/L (98-107); CREATININE FOR GFR 0.88 MG/DL (0.70-1.30); GLOMERULAR FILTRATION RATE > 60.0 (>42); GLUCOSE, FASTING 108 MG/DL (70-100); SODIUM LEVEL 135 MEQ/L (136-145)
[2019-07-12 06:29] VITALS: BP 110/54
[2019-07-12] MEDS: SYMBICORT 160/4.5MCG INHALER 6GM INH SCH ×2 (07:20→20:24)
[2019-07-12] MEDS ORDERED: TIOTROPIUM INHALER/CAPSULE (SPIRIVA) INH SCH (08:00)
[2019-07-12] MEDS: ENOXAPARIN 40 MG/0.4 ML SYRINGE (J1650) SC SCH ×2 (09:00→09:11)
--- NOTE | 2019-07-12 09:07 | IPNPDOC ---
Text Note Date of Service The patient was seen on 07/12/19. NOTE No acute events overnight. He denies any problems with nausea or emesis. He is on clear liquid diet for now without any problems. He is complaining of abd pains, and has not been out of bed yet. He also does not want to get out of bed at all today. VSSAF NAD abd - soft, TTP appropriate, dressings c/d/i, drains in place with minimal serosanguinous output labs - below A) 74y/o male POD#1 s/p RA repair of strangulated RIH with appendectomy, and cecectomy prostate CA COPD tobacco abuse P) clq diet ambulate in the halls IS monitor labs will advance diet once he is ambulating and passing gas Ty Kebede DO VS,Fishbone, I+O VS, Fishbone, I+O Laboratory Tests 07/12/19 05:13 Red Blood Count 4.02 L, Mean Corpuscular Volume 83.8, Mean Corpuscular Hemoglobin 26.6 L, Mean Corpuscular Hemoglobin Concent 31.8 L, Red Cell Distri bution Width 15.5 H, Calcium Level 8.3 L Vital Signs Date Time Temp Pulse Resp B/P (MAP) Pulse Ox O2 Delivery O2 Flow Rate FiO2 07/12/19 06:29 98.9 98 20 110/54 (72) 91 07/11/19 13:15 2 I&O- Last 24 Hours up to 6 AM 07/12/19 06:00 Intake Total 2910 ml Output Total 1730 ml Balance 1180 ml ROX KEBEDE DO Jul 12, 2019 09:07
[2019-07-12] MEDS: TAMSULOSIN 0.4 MG CAP PO SCH (09:09)
[2019-07-12] MEDS: FOLIC ACID 1 MG TAB PO SCH (09:09)
[2019-07-12] MEDS: SENOKOT S TAB PO SCH ×2 (09:10→20:09)
[2019-07-12] MEDS: FAMOTIDINE 20 MG TAB PO SCH ×2 (09:10→20:09)
[2019-07-12] MEDS: FERROUS SULFATE 325MG TAB PO SCH ×2 (09:10→20:09)
[2019-07-12] MEDS: NORCO, ANEXSIA 5/325MG TABLET (HYDROcodone/ACETAMINOPHEN) PO PRN ×2 (09:10→15:31)
[2019-07-12] MEDS: amLODIPine 5 MG TAB PO SCH ×2 (09:11→21:00)
--- NOTE | 2019-07-12 10:03 | RO ---
DATE OF PROCEDURE: 07/11/2019 PREOPERATIVE DIAGNOSIS: Prostate cancer and incarcerated right inguinal hernia and a left inguinal hernia. POSTOPERATIVE DIAGNOSIS: Prostate cancer left inguinal hernia, strangulated right inguinal hernia with perforated ischemic cecum. PROCEDURE: Robotic repair of a strangulated right inguinal hernia with cecectomy appendectomy with abdominal washout. SURGEON: Dr. J Luis Kebede and Dr. Mansoor Perez. ANESTHESIA: General. ESTIMATED BLOOD LOSS: 10 mL. COMPLICATIONS: Perforated cecum. INDICATIONS FOR PROCEDURE: The patient 74-year-old male patient of Dr. Perez who was here for robotic prostatectomy last week, found to have an incarcerated right inguinal hernia. He was sent to the emergency room (ER). I saw him in the ER and reduce the hernia. He was then discharged home. He returns today for his elective repair of his hernia as well as a prostatectomy with Urology. Risks and benefits of procedure not limited but including bleeding, infection, hernia formation, damage to surrounding structures and need for further surgery discussed in detail with him. Informed consent was obtained procedure was planned. DESCRIPTION OF PROCEDURE: The patient brought back to operating room 7. After sufficient sedation, the abdomen was sterilely prepped and draped and a Pringle catheter was left in place. Next time-out was done to confirm proper patient, proper procedure. Following that a 5 mm incision made supraumbilically in the midline. Veress needle was inserted and was insufflated to 50 mmHg. Next an 8 mm robotic port was placed, a camera was then inserted and the abdomen was examined. Upon first examination, there appeared to be some fluid in the pelvis. Upon closer exam, it appeared to be looking like some stool. Two more ports were placed in the left lower abdomen, aright of a robotic port was placed as well as a right-sided 12 mm assist port. Next the patient was placed in 15 degrees Trendelenburg. The right lower quadrant was examined. The cecum was extending down into the hernia sac. This was carefully reduced and after doing so revealed that there was a perforation and ischemic tissue at the very distal tip of the cecum. Once this was reduced, the rest of the hernia sac was dissected free. A curved incision made in the peritoneum. The hernia sac was dissected free circumferentially. Once that was done, it was very edematous and thickened and difficult to dissect free all the way distally. I dissected as far distally as I can could safely and then transected the hernia sac. Next using a #2-0 V-Loc, I approximated the inguinal ring and left a 15 Stephen drain down inside of the remaining hernia sac due to the stool that was still left down inside of there. Once that was completed, I close the peritoneum over top of my drain with another running #2-0 V-Loc. The cecum was then dissected free distally along the peritoneal reflection. The appendix was dissected from its attachments. The appendix and the perforated portion of cecum were elevated up in the air and using a 60 mm stapler, I was able to take three loads and fired across the distal cecum and appendix amputating that portion of it making sure to keep the terminal ileum intact. Once that was completed, another 19-Hungarian Stephen drain was placed next to the cecum and down into the pelvis and the abdomen was irrigated with out 2.5 liters of saline. The abdomen was then desufflated, ports were removed. Drains were brought out through the two port sites on the right side the abdomen was cleaned and dried. Steri-Strips, 4x4 and tape were applied thus ending the procedure. BINDU
--- NOTE | 2019-07-12 11:48 | IPNPDOC ---
Text Note Date of Service The patient was seen on 07/12/19. NOTE Subjective: Patient is a 74-year-old male who came to the hospital initially for a robotic-assisted prostatectomy and a hernia repair. When the procedure was started, it was noted that the patient had a perforation cecum. Dr. Kebede of general surgery placed a clip over the perforation and the patient was admitted in the hospital for further monitoring and treatment. Patient is doing well today. Patient is not complaining of any abdominal pain. Patient says he is passing gas but has not a bowel movement yet. Patient did not offer much other history Objective: Vitals: (see below) General: No acute distress, laying comfortably in bed. HEENT: Normocephalic, atraumatic, moist mucous membranes. Neck: No JVD or lymphadenopathy Cardiac: RRR, No murmurs Pulm: Clear to auscultation b/l. No wheezing, rhonchi Abd: Patient's dressing was soiled and was leaking fluid onto the bed. Patient denied any pain to palpation of the abdomen. Ext: No edema or cyanosis. Radial, posterior tibial, and dorsalis pedis pulses equal bilaterally. Labs (see below) Images: No new imaging is been performed. Assessment/Plan 1. Perforated cecum. Management discharge will be per Dr. Kebede of general surgery. 2. Hypertensive heart disease. Continue amlodipine 5 mg daily. 3. COPD. We will continue Symbicort. Albuterol nebulizers orders as needed. 4. BPH and prostate cancer. Per urology. Continue Flomax. DVT prophy: Heparin 5000 units every 8 hours, sequential compression devices Dispo: Pending clinical improvement and Gen. surgery clearing the patient. VS,Fishbone, I+O VS, Fishbone, I+O Laboratory Tests 07/12/19 05:13 Red Blood Count 4.02 L, Mean Corpuscular Volume 83.8, Mean Corpuscular Hemoglobin 26.6 L, Mean Corpuscular Hemoglobin Concent 31.8 L, Red Cell Distribution Width 15.5 H, Calcium Level 8.3 L Vital Signs Date Time Temp Pulse Resp B/P (MAP) Pulse Ox O2 Delivery O2 Flow Rate FiO2 07/12/19 09:40 18 07/12/19 09:11 98 110/54 07/12/19 06:29 98.9 91 07/11/19 13:15 2 l I&O- Last 24 Hours up to 6 AM 07/12/19 06:00 Intake Total 2910 ml Output Total 1730 ml Balance 1180 ml GME ATTESTATION GME ATTESTATION My faculty preceptor for this patient encounter was physically present during the encounter and was fully available. All aspects of the patient interview, examination, medical decision making process, and medical care plan development were reviewed and approved by the faculty preceptor. The faculty preceptor is aware and concurs with the plan as stated in the body of this note and will at test to such by his/her cosignature. ATTENDING NOTE I, Raiza Marion, have independently examined this patient and performed my own physical exam, as well as reviewed the documentation and edited where necessary. I have discussed in detail with the resident / student the findings and plan of treatment as documented by the resident / student and edited their note. I agree with their findings and treatment plan and have edited their documentation. I will continue to follow the patient during this hospital stay. ROSA HEREDIA DO Jul 12, 2019 11:47 RAIZA MARION MD Jul 12, 2019 16:06
[2019-07-12 14:00] VITALS: BP 106/56
[2019-07-12] MEDS: KETOROLAC 30 MG/ML VIAL (J1885) IV PRN (18:30)
[2019-07-12 20:11] VITALS: BP 103/58
[2019-07-13] MEDS: CIPROFLOXACIN 400 MG in APPROPRIATE DILUENT 1 EA IV SCH ×2 (00:16→13:45)
[2019-07-13] MEDS: KETOROLAC 30 MG/ML VIAL (J1885) IV PRN (00:17)
[2019-07-13] MEDS: metroNIDAZOLE 500 MG in APPROPRIATE DILUENT 1 EA IV SCH ×2 (05:27→14:00)
[2019-07-13] MEDS: NORCO, ANEXSIA 5/325MG TABLET (HYDROcodone/ACETAMINOPHEN) PO PRN ×2 (05:28→19:51)
[2019-07-13 05:48] VITALS: BP 100/56
[2019-07-13] MEDS: SYMBICORT 160/4.5MCG INHALER 6GM INH SCH ×2 (07:29→19:46)
[2019-07-13 08:13] LABS: HEMATOCRIT 33.6 % (42.0-52.0); HEMOGLOBIN 10.9 g/dl (13.5-17.5); MEAN CORPUSCULAR HEMOGLOBIN 26.8 pg (27.0-33.0); MEAN CORPUSCULAR HGB CONC 32.4 g/dl (32.0-36.5); MEAN CORPUSCULAR VOLUME 82.8 fl (80.0-96.0); PLATELET COUNT, AUTOMATED 428 10^3/uL (150-450); RED BLOOD COUNT 4.06 10^6/uL (4.30-6.10); WHITE BLOOD COUNT 18.9 10^3/uL (4.0-10.0)
[2019-07-13 08:30] LABS: BLOOD UREA NITROGEN 24 MG/DL (7-18); CALCIUM LEVEL 8.7 MG/DL (8.8-10.2); CARBON DIOXIDE LEVEL 22 MEQ/L (21-32); CHLORIDE LEVEL 104 MEQ/L (98-107); CREATININE FOR GFR 1.04 MG/DL (0.70-1.30); GLOMERULAR FILTRATION RATE > 60.0 (>42); GLUCOSE, FASTING 112 MG/DL (70-100); POTASSIUM SERUM 4.5 MEQ/L (3.5-5.1); SODIUM LEVEL 135 MEQ/L (136-145)
[2019-07-13] MEDS: FOLIC ACID 1 MG TAB PO SCH (09:00)
[2019-07-13] MEDS: ENOXAPARIN 40 MG/0.4 ML SYRINGE (J1650) SC SCH (09:00)
[2019-07-13] MEDS: SENOKOT S TAB PO SCH ×2 (09:00→21:22)
[2019-07-13] MEDS: TAMSULOSIN 0.4 MG CAP PO SCH (09:00)
[2019-07-13] MEDS: FAMOTIDINE 20 MG TAB PO SCH ×2 (09:00→21:19)
[2019-07-13] MEDS: amLODIPine 5 MG TAB PO SCH ×2 (09:00→21:21)
[2019-07-13] MEDS: FERROUS SULFATE 325MG TAB PO SCH ×2 (09:00→21:22)
--- NOTE | 2019-07-13 09:24 | IPNPDOC ---
Text Note Date of Service The patient was seen on 07/13/19. NOTE No acute events overnight. He denies any problems with nausea or emesis. He is on clear liquid diet for now without any problems. Abd pain is improved. VSSAF NAD abd - soft, TTP appropriate, dressings c/d/i, drains in place with minimal serosanguinous output labs - below A) 74y/o male POD#2 s/p RA repair of strangulated RIH with appendectomy, and cecectomy prostate CA COPD tobacco abuse P) reg diet ambulate in the halls IS monitor labs Ty Kebede DO VS,Fishbone, I+O VS, Fishbone, I+O Laboratory Tests 07/13/19 07:24 Red Blood Count 4.06 L, Mean Corpuscular Volume 82.8, Mean Corpuscular Hemoglobin 26.8 L, Mean Corpuscular Hemoglobin Concent 32.4, Red Cell Distribution Width 15.6 H, Calcium Level 8.7 L Vital Signs Date Time Temp Pulse Resp B/P (MAP) Pulse Ox O2 Delivery O2 Flow Rate FiO2 07/13/19 09:00 105 100/56 07/13/19 05:48 98.4 18 95 07/11/19 13:15 2 I&O- Last 24 Hours up to 6 AM 07/13/19 06:00 Intake Total 2010 ml Output Total 720 ml Balance 1290 ml ROX KEBEDE DO Jul 13, 2019 09:24
--- NOTE | 2019-07-13 09:56 | IPNPDOC ---
Text Note Date of Service The patient was seen on 07/13/19. NOTE Subjective: Patient is doing well overnight. During no acute events. Patient has been passing gas but has not had a bowel movement yet. Patient is eating without difficulty. Patient does not complain of having abdominal pain. Review of systems General: Patient denies fevers HEENT: Patient denies headaches Cardiovascular: Patient denies chest pain Respiratory: Patient denies shortness of breath, cough GI: Patient denies abdominal pain, nausea, vomiting, diarrhea : Patient denies pain or difficulty with urination Neurological: Patient denies numbness or tingling in extremities Extremities: Patient denies swelling or pain in extremities Objective: Vitals: (see below) General: No acute distress, laying comfortably in bed. HEENT: Normocephalic, atraumatic, moist mucous membranes. Neck: No JVD or lymphadenopathy Cardiac: RRR, No murmurs Pulm: Clear to auscultation b/l. No wheezing, rhonchi Abd: Patient has [address] on the right side of his abdomen. The bandage s are non-soiled. Patient does have a little bit of tenderness around these areas but no rebound tenderness. Ext: No edema or cyanosis. Radial, posterior tibial, and dorsalis pedis pulses equal bilaterally. Labs (see below) Images: No new imaging has been performed Assessment/Plan 1. Perforated cecum. Management and discharge will be per Dr. Kebede of general surgery. In speaking with him today he did say the patient is tolerating a normal diet and has a bowel movement, he could go home tomorrow. We will need to monitor his white blood cell count and if he continues to go up a chest x-ray wi ll be performed to rule out pneumonia. 2. Hypertensive heart disease. Continue amlodipine 5 mg daily. 3. COPD. Continue Symbicort and albuterol nebulizers as needed. 4. BPH and prostate cancer. Per urology. Continue Flomax. DVT prophy: Heparin 5000 units every 8 hours, sequential compression devices Dispo: Pending clinical improvement and patient having a bowel movement. VS,Fishbone, I+O VS, Fishbone, I+O Laboratory Tests 07/13/19 07:24 Red Blood Count 4.06 L, Mean Corpuscular Volume 82.8, Mean Corpuscular Hemoglobin 26.8 L, Mean Corpuscular Hemoglobin Concent 32.4, Red Cell Distribution Width 15.6 H, Calcium Level 8.7 L Vital Signs Date Time Temp Pulse Resp B/P (MAP) Pulse Ox O2 Delivery O2 Flow Rate FiO2 07/13/19 09:00 105 100/56 07/13/19 05:48 98.4 18 95 07/11/19 13:15 2 I&O- Last 24 Hours up to 6 AM 07/13/19 06:00 Intake Total 2010 ml Output Total 720 ml Balance 1290 ml GME ATTESTATION GME ATTESTATION My faculty preceptor for this patient encounter was physically present during the encounter and was fully available. All aspects of the patient interview, examination, medical decision making process, and medical care plan development were reviewed and approved by the faculty preceptor. The faculty preceptor is aware and concurs with the plan as stated in the body of this note and will attest to such by his/her cosignature. ATTENDING NOTE I, Raiza Marion, have independently examined this patient and performed my own physical exam, as well as reviewed the documentation and edited where necessary. I have discussed in detail with the resident / student the findings and plan of treatment as documented by the resident / student and edited their note. I agree with their findings and treatment plan and have edited their documentation. I will continue to follow the patient during this hospital stay. ROSA HEREDIA DO Jul 13, 2019 09:56 RAIZA MARION MD Jul 13, 2019 14:21
[2019-07-13] MEDS ORDERED: NS 1,000 ML IV SCH (11:00)
[2019-07-13 13:48] VITALS: BP 106/78
[2019-07-13] MEDS: metroNIDAZOLE (FLAGYL) 500 MG TAB PO SCH (21:19)
[2019-07-13] MEDS: CIPROFLOXACIN 500 MG TAB PO SCH (21:33)
[2019-07-13 22:00] VITALS: BP 128/57
[2019-07-14] MEDS: NORCO, ANEXSIA 5/325MG TABLET (HYDROcodone/ACETAMINOPHEN) PO PRN ×4 (04:15→21:24)
[2019-07-14] MEDS: CIPROFLOXACIN 500 MG TAB PO SCH (05:26)
[2019-07-14] MEDS: metroNIDAZOLE (FLAGYL) 500 MG TAB PO SCH ×3 (05:26→21:12)
[2019-07-14 06:00] VITALS: BP 121/55
[2019-07-14 07:05] LABS: HEMATOCRIT 33.2 % (42.0-52.0); MEAN CORPUSCULAR HEMOGLOBIN 28.1 pg (27.0-33.0); MEAN CORPUSCULAR HGB CONC 33.1 g/dl (32.0-36.5); MEAN CORPUSCULAR VOLUME 84.7 fl (80.0-96.0); PLATELET COUNT, AUTOMATED 382 10^3/uL (150-450); RED BLOOD COUNT 3.92 10^6/uL (4.30-6.10); WHITE BLOOD COUNT 20.6 10^3/uL (4.0-10.0)
[2019-07-14 07:27] LABS: BLOOD UREA NITROGEN 22 MG/DL (7-18); CARBON DIOXIDE LEVEL 20 MEQ/L (21-32); CHLORIDE LEVEL 103 MEQ/L (98-107); CREATININE FOR GFR 0.85 MG/DL (0.70-1.30); GLOMERULAR FILTRATION RATE > 60.0 (>42); GLUCOSE, FASTING 118 MG/DL (70-100); POTASSIUM SERUM 4.2 MEQ/L (3.5-5.1); SODIUM LEVEL 134 MEQ/L (136-145)
[2019-07-14] MEDS: TAMSULOSIN 0.4 MG CAP PO SCH (09:25)
[2019-07-14] MEDS: ENOXAPARIN 40 MG/0.4 ML SYRINGE (J1650) SC SCH (09:25)
[2019-07-14] MEDS: amLODIPine 5 MG TAB PO SCH ×2 (09:27→21:15)
[2019-07-14] MEDS: FERROUS SULFATE 325MG TAB PO SCH ×2 (09:27→21:12)
[2019-07-14] MEDS: SENOKOT S TAB PO SCH ×2 (09:27→21:12)
[2019-07-14] MEDS: FOLIC ACID 1 MG TAB PO SCH (09:27)
[2019-07-14] MEDS: FAMOTIDINE 20 MG TAB PO SCH ×2 (09:27→21:12)
--- NOTE | 2019-07-14 10:03 | REP ---
REASON: Leukocytosis. COMPARISON: 01/27/2019, the latest prior. The technique utilized in obtaining the radiograph has magnified the cardiac silhouette and accentuated the interstitial markings. There is a right lower lobe opacity which blunts the costophrenic angle and cardiophrenic angles. The cardiac silhouette is magnified by technique, however, there is cardiomegaly. There is no significant change in appearance of the osseous structures. There is no significant change in appearance of the left lung. IMPRESSION: New right lower lobe opacity. Pneumonia/atelectasis/effusion. Other findings as described above. Electronically Signed by Kodak Sol DO 07/14/2019 11:21 A
[2019-07-14] MEDS ORDERED: ISOVUE-370 76% 100ML VIAL (Q9967) As Ordered ONE (10:22)
[2019-07-14] MEDS: SYMBICORT 160/4.5MCG INHALER 6GM INH SCH ×2 (10:38→19:58)
--- NOTE | 2019-07-14 11:07 | IPNPDOC ---
Text Note Date of Service The patient was seen on 07/14/19. NOTE Subjective: Patient was seen and examined at bedside today. Patient's white blood cell count continued to rise. This may be due to his body's reaction to the fecal material that was in his abdomen due to a cecal perforation. Patient not complaining of any pain or difficult breathing at this time. Patient does complain of a cough however, he says this is no different than his usual cough. He says he is coughing sometimes but not all the time and he is not bringing anything up with a cough. Patient is passing gas but has not had a bowel movement yet. Patient says he is able to get up and walk around a little bit. No acute events overnight. Review of systems General: Patient denies fevers HEENT: Patient denies headaches Cardiovascular: Patient denies chest pain Respiratory: Patient has a cough at his baseline. Patient denies shortness of breath. GI: Patient says the pain in his abdomen is decreased. Patient denies nausea. Patient denies having any bowel movements yet. : Patient denies pain or difficulty with urination Neurological: Patient denies numbness or tingling in extremities Extremities: Patient denies swelling or pain in extremities Objective: Vitals: (see below) General: No acute distress, laying comfortably in bed. HEENT: Normocephalic, atraumatic, moist mucous membranes. Neck: No JVD or lymphadenopathy Cardiac: RRR, No murmurs Pulm: Clear to auscultation b/l. No wheezing, rhonchi Abd: Patient's incisions are clean and dry. There are [address] in the abdomen which do not have any surrounding erythema. Patient's abdomen is slightly tender around the incisions. Ext: No edema Labs (see below) Images: A chest x-ray performed on 07/14/2019 showed a new right lower lobe opacity. Pneumonia/atelectasis/effusion. Assessment/Plan 1. Perforated cecum. Management and discharge we per general surgery. I spoke with Dr. Gonzales this morning about the patient's new pleural effusion or pneumonia. We are doing a CT of the chest, abdomen, and pelvis with IV contrast to further evaluate this. Dr. Tobin of radiology called and I spoke with him about the history of the patient. He was wondering if the patient had his hernia repaired which I told him it was. He is now concerned that the air fluid level that is seen is an abscess vs a segment of bowel. I called and spoke with Dr. Gonzales, the covering surgeon who said to strip the tubing of the lower drain, which Dr. Kebede placed in the inguinal canal. We will also send the fluid for culture for antibiotic optimization. Dr. Gonzales says the fluid collection may be a seroma. 2. New infiltrate on chest x-ray. Patient has blunting of the right costophrenic angle which may be a infiltrate/atelectasis/pleural effusion. A chest CT with IV contrast has been ordered as above. Patient has been switched from ciprofloxacin to moxifloxacin. 3. Hypertensive heart disease. Continue amlodipine 5 mg daily. 4. COPD. Continue Symbicort and albuterol nebulizers as needed. 5. BPH and prostate cancer. Per urology. Continue with Flomax. DVT prophy: Heparin 5000 units every 8 hours, sequential compression devices. Dispo: Pending clinical improvement and patient having a bowel movement. VS,Wilbone, I+O VS, Fishbone, I+O Laboratory Tests 07/14/19 06:19 Red Blood Count 3.92 L, Mean Corpuscular Volume 84.7, Mean Corpuscular Hemoglobin 28.1, Mean Corpuscular Hemoglobin Concent 33.1, Red Cell Distribution Width 15.7 H, Calcium Level 6.0 #L Vital Signs Date Time Temp Pulse Resp B/P (MAP) Pulse Ox O2 Delivery O2 Flow Rate FiO2 07/14/19 09:56 16 07/14/19 09:27 105 121/55 07/14/19 06:00 99.0 94 07/11/19 13:15 2 I&O- Last 24 Hours up to 6 AM 07/14/19 06:00 Intake Total 1140 ml Output Total 1055 ml Balance 85 ml GME ATTESTATION GME ATTESTATION My faculty preceptor for this patient encounter was physically present during the encounter and was fully available. All aspects of the patient interview, examination, medical decision making process, and medical care plan development were reviewed and approved by the faculty preceptor. The faculty preceptor is aware and concurs with the plan as stated in the body of this note and will attest to such by his/her cosignature. ATTENDING NOTE I, Raiza Alonzo, have independently examined this patient and performed my own physical exam, as well as reviewed the documentation and edited where necessary. I have discussed in detail with the resident / student the findings and plan of treatment as documented by the resident / student and edited their note. I agree with their findings and treatment plan and have edited their documentation. I will continue to follow the patient during this hospital stay. ROSA HEREDIA DO Jul 14, 2019 11:07 RAIZA ALONZO MD Jul 14, 2019 14:24
[2019-07-14] MEDS: MOXIFLOXACIN 400 MG TAB PO SCH (12:26)
--- NOTE | 2019-07-14 12:30 | REP ---
REASON: Leukocytosis. Prior plain film examination, 07/14/2019, showed a right lower lobe opacity. CONTRAST: 100 mL [id number]. There is no mediastinal or hilar adenopathy. Calcified right hilar lymph nodes are noted. There is a slight pericardial effusion, and there is a slight right pleural effusion. Please refer to the abdominal and pelvic CT obtained with this examination for description of the upper abdomen. Bone window technique throughout the exam shows the osseous structures to be within normal limits for the patient's age. Evaluation of the lung reyes shows large right-sided parenchymal bulla and pleural blebs with smaller left-sided pleural blebs and parenchymal bulla. Scattered parenchymal bulla are seen throughout the lung reyes with evidence of lung field hyperexpansion. There is cylindrical bronchiectasis throughout. Patchy opacities are seen in the right lower lobe. IMPRESSION: 1. There is a small right pleural effusion with patchy right lower lobe opacities suspicious for pneumonia/atelectasis. Neoplastic change cannot be ruled out. There are no priors for comparison. 2. Marked chronic lung field changes, as described above. 3. There is a small pericardial effusion. Electronically Signed by Kodak Sol DO 07/14/2019 12:34 P
--- NOTE | 2019-07-14 12:51 | REP ---
REASON: History of perforated cecum. Patient is status post postoperative repair, 07/12/2019. Prior CT abdomen and pelvis, 07/05/2019, which is the only prior, has been reviewed. There is a small amount of free fluid in the abdomen, particularly the right paracolic gutter and in Morison pouch. This has developed since the last exam. The gallbladder is mildly enlarged, status quo. The liver and spleen are unchanged. The pancreas, adrenal glands, and kidneys are unchanged. Multiple dilated gas and fluid-filled small bowel loops are seen throughout the abdomen. There is no evidence of free air. Surgical drainage tubes are seen in the abdomen and pelvis. There is gross prostatomegaly. There is a Pringle balloon catheter in the urinary bladder, status quo. There is a large air-fluid collection in the right inguinal canal and extending in the right hemiscrotum. There is a surgical drainage tube within the right inguinal canal. In the proximal right inguinal canal now seen are multiple surgical frederic. The abdominal aorta and para-aortic regions are unchanged. There is no change in the osseous structures. IMPRESSION: 1. It appears as though as if the patient has had right herniorrhaphy since 07/05/2019. The air-fluid level seen within the right inguinal canal adjacent to a surgical drainage tube is highly suspect for an abscess rather than a persistent inguinal hernia. 2. Small bowel ileus versus SBO. Correlate clinically with appropriate followup. 3. Small amount of free fluid in the abdomen and pelvis with multiple surgical drainage tubes in place. 4. There are other findings which appear essentially unchanged compared to the prior exam. I have placed a phone call to Tk Cochran, one of the patient's healthcare providers, to obtain necessary history, particularly in regards to the patient's operative procedure, and frankly whether or not a herniorrhaphy was performed and frankly whether a known abscess was seen previously in the right inguinal canal. Electronically Signed by Kodak Sol DO 07/14/2019 03:17 P
[2019-07-14 14:00] VITALS: BP 119/55
--- NOTE | 2019-07-14 14:41 | IPNPDOC ---
Subjective General Date/Time Seen The patient was seen on 07/14/19 at 14:34. Subject Chief Complaint/History The patient is a 74-year-old male admitted with a reason for visit of Prostate Cancer/Bilateral Inguinal Hernia. Current Medications Current Medications Current Medications Medications (Trade) Dose Ordered Sig/Phan Route PRN Reason Start Time Stop Time Status Last Admin Dose Admin Acetaminophen (Tylenol Tab) 650 mg Q4HP PRN PO MILD PAIN or TEMP > 101 07/11/19 08:30 07/11/19 10:49 DC Acetaminophen (Tylenol Tab) 650 mg Q4HP PRN PO MILD PAIN or TEMP > 101 07/11/19 12:00 Acetaminophen/ Hydrocodone Bitart ([place], Anexsia 5/325) 2 tab Q6HP PRN PO SEVERE PAIN (PS 8-10) 07/11/19 12:00 07/14/19 09:26 Albuterol Sulfate (Proventil, Ventolin Hfa) 2 puff Q4H PRN INH WHEEZING 07/11/19 12:00 Albuterol Sulfate (Proventil, Ventolin Hfa) 2 puff Q4HP PRN INH SHORTNESS OF BREATH 07/11/19 08:30 07/11/19 12:16 DC Amlodipine Besylate (Norvasc) 5 mg BID PO 07/11/19 21:00 07/11/19 21:00 DC Amlodipine Besylate (Norvasc) 5 mg BID PO 07/11/19 21:00 07/14/19 09:27 Budesonide/ Formoterol Fumarate (Symbicort 160/ 4.5mcg) 2 puff BID INH 07/11/19 21:00 07/11/19 21:00 DC Budesonide/ Formoterol Fumarate (Symbicort 160/ 4.5mcg) 2 puff BID INH 07/11/19 21:00 07/14/19 10:38 Cefazolin Sodium 1 gm/Dextrose 50 ml @ 100 mls/hr Q8H IV 07/11/19 17:00 07/11/19 17:00 DC Ciprofloxacin (Cipro) 500 mg BID@06,18 PO 07/13/19 18:00 07/14/19 10:25 DC 07/14/19 05:26 Ciprofloxacin 400 mg/IV Miscellaneous Supplies 200 ml @ 200 mls/hr Q12H IV 07/11/19 13:00 07/13/19 20:39 DC 07/13/19 13:45 Docusate Sodium (Colace) 100 mg BID PO 07/11/19 21:00 07/11/19 21:00 DC Enoxaparin Sodium (Lovenox) 40 mg DAILY SC 07/12/19 09:00 07/14/19 09:25 Famotidine (Pepcid) 20 mg BID PO 07/11/19 21:00 07/14/19 09:27 Fentanyl Citrate (Sublimaze) 25 mcg Q5MP PRN IV MODERATE PAIN (PS 4-7) 07/11/19 12:30 07/11/19 13:17 DC 07/11/19 12:35 Ferrous Sulfate (Ferrous Sulfate) 325 mg BID PO 07/11/19 21:00 07/14/19 09:27 Folic Acid (Folic Acid) 1 mg DAILY PO 07/11/19 09:00 07/14/19 09:27 Heparin Sodium (Porcine) (Heparin) 5,000 units Q8H SC 07/11/19 14:00 07/11/19 14:00 DC Ketorolac Tromethamine (ToRADol) 15 mg Q6HP PRN IV MILD/MODERATE PAIN (PS 1-7) 07/11/19 12:00 07/16/19 11:59 07/13/19 00:17 Lactated Ringer's 1,000 ml @ 100 mls/hr Q10H IV 07/11/19 12:30 07/11/19 13:30 DC Metronidazole (Flagyl) 500 mg Q8H PO 07/13/19 22:00 07/14/19 14:33 Metronidazole 500 mg/IV Miscellaneous Supplies 100 ml @ 100 mls/hr Q8H IV 07/11/19 14:00 07/13/19 20:39 DC 07/13/19 05:27 Morphine Sulfate (Morphine Sulfate Inj) 2 mg Q2HP PRN IV SEVERE PAIN (PS 8-10) 07/11/19 08:30 07/11/19 10:49 DC Morphine Sulfate (Morphine Sulfate Inj) 2 mg Q2HP PRN IV SEVERE PAIN (PS 8-10) 07/11/19 12:00 07/12/19 09:03 DC 07/12/19 05:43 Moxifloxacin HCl (Avelox) 400 mg DAILY@06 PO 07/14/19 10:30 07/14/19 12:26 Ondansetron HCl (ZOFRAN INJection) 4 mg Q4HP PRN IV NAUSEA OR VOMITING 07/11/19 12:30 07/11/19 13:30 DC Ondansetron HCl (ZOFRAN INJection) 4 mg Q6HP PRN IV NAUSEA OR VOMITING 07/11/19 08:30 07/11/19 10:49 DC Ondansetron HCl (ZOFRAN INJection) 4 mg Q6HP PRN IV NAUSEA OR VOMITING 07/11/19 12:00 Oxycodone HCl (Roxicodone, Oxyir) 5 mg ASDIRECTED PRN PO MILD/MODERATE PAIN (PS 1-7) 07/11/19 12:30 07/11/19 13:30 DC Oxycodone/ Acetaminophen (Percocet 5mg/ 325mg Tablet) 1 tab Q4HP PRN PO MODERATE PAIN (PS 5-7) 07/11/19 08:30 07/11/19 10:49 DC Oxycodone/ Acetaminophen (Percocet 5mg/ 325mg Tablet) 2 tab Q4HP PRN PO MODERATE/SEVERE PAIN (PS 5-10) 07/11/19 08:30 07/11/19 10:49 DC Potassium Chloride/Dextrose/ Sod Cl 1,000 ml @ 125 mls/hr Q8H IV 07/11/19 12:00 07/12/19 09:03 DC 07/12/19 04:58 Senna/Docusate Sodium (Senokot S) 1 tab BID PO 07/11/19 21:00 07/14/19 09:27 Sodium Chloride 1,000 ml @ 80 mls/hr [id number] IV 07/13/19 11:00 07/13/19 23:29 DC 07/13/19 11:47 Sodium Chloride 1,000 ml @ 125 mls/hr Q8H IV 07/11/19 08:22 07/11/19 10:49 DC Tamsulosin HCl (Flomax) 0.4 mg DAILY PO 07/11/19 09:00 07/14/19 09:25 Tiotropium [place] (Spiriva Handihaler) 1 inhalation DAILY@08 INH 07/12/19 08:00 07/12/19 08:00 DC Allergies Coded Allergies: No Known Allergies (Unverified , 07/05/19) Objective Physical Examination Examination GENERAL APPEARANCE:[Patient seen, laying in bed, awake, alert, and oriented. Co mfortable, in no acute distress]. SKIN: [Warm and moist]. HEENT: [Normocephalic, atraumatic. [place] palpebral conjunctiva, anicteric sclerae. Lips and mucosa appear moist]. NECK: [Supple, no thyromegaly. No obvious jugular venous distention]. LUNGS: [Clear to auscultation bilaterally. No wheezing appreciated]. HEART: [No chest wall abnormalities. Regular rate and rhythm with no murmurs appreciated]. ABDOMEN: Abdomen is , soft, . [No hepatosplenomegaly. No umbilical or groin herniations, nondistended. No noticeable rebound or guarding. No grimacing with palpation. No rebound tenderness. No masses appreciated]. EXTREMITIES: [Extremities have no deformities. No edema identified]. Vital Signs Vital Signs Date Time Temp Pulse Resp B/P (MAP) Pulse Ox O2 Delivery O2 Flow Rate FiO2 07/14/19 09:56 16 07/14/19 09:27 105 121/55 07/14/19 06:00 99.0 94 07/11/19 13:15 2 I&Os I&O- Last 24 Hours up to 6 AM 07/14/19 06:00 Intake Total 1140 ml Output Total 1055 ml Balance 85 ml Laboratory Data Labs 24H Laboratory Tests 2 07/14/19 06:19: Nucleated Red Blood Cells % (auto) 0.0, Anion Gap 11, Glomerular Filtration Rate > 60.0, Blood Urea Nitrogen 22H, Creatinine 0.85, Sodium Level 134L, Potassium Level 4.2, Chloride Level 103, Carbon Dioxide Level 20L, Calcium Level 6.0#L CBC/BMP Laboratory Tests 07/14/19 06:19 Red Blood Count 3.92 L, Mean Corpuscular Volume 84.7, Mean Corpuscular Hemoglobin 28.1, Mean Corpuscular Hemoglobin Concent 33.1, Red Cell Distribution Width 15.7 H, Calcium Level 6.0 #L Imaging Studies CT scan chest abdomen and pelvis 1. It appears as though as if the patient has had right herniorrhaphy since 07/05/2019. The air-fluid level seen within the right inguinal canal adjacent to a surgical drainage tube is highly suspect for an abscess rather than a persistent inguinal hernia. 2. Small bowel ileus versus SBO. Correlate clinically with appropriate followup. 3. Small amount of free fluid in the abdomen and pelvis with multiple surgical drainage tubes in place. 4. There are other findings which appear essentially unchanged compared to the prior exam. CT chest 1. There is a small right pleural effusion with patchy right lower lobe opacities suspicious for pneumonia/atelectasis. Neoplastic change cannot be ruled out. There are no priors for comparison. 2. Marked chronic lung field changes, as described above. 3. There is a small pericardial effusion. Impression Postop day 3 robotic-assisted laparoscopic repair of right inguinal scrotal hernia. Localized perforation of the herniating portion of the cecum status post partial sacrectomy at the same time. Main issue right now is the leukocytosis noted since yesterday. Overall patient does not seem to be showing any signs of sepsis. He has moderate amount of soft fluctuant swelling along the right inguinal canal going done beyond the external ring to the base of the scrotum but I couldn't definitely feel the testis separate from this swelling. This is comminuted large inguinal scrotal hernia repairs done laparoscopically. There is a drain left in this area and it is draining some thick brownish, maroon-colored hemorrhagic fluid. I doubt that the findings on CT account for an abscess most likely a hematoma. I would like them to send the sampled for fluids as this more likely is also infected. The last and nurse to strip the drain to allow for hopefully better drainage but most the time this will be complex fluid that does not drain well. He may need to be aspirated under ultrasound guidance but he is not that symptomatic from it safe for the leukocytosis. We can tailor the antibiotics once cultures come out. Told him that most the time this would last 4 months before it eventually resolves. ROHINI EVANGELISTA MD Jul 14, 2019 14:41
[2019-07-14] MEDS: KETOROLAC 30 MG/ML VIAL (J1885) IV PRN (20:28)
[2019-07-14 22:00] VITALS: BP 110/60
[2019-07-15] MEDS: ACETAMINOPHEN TAB 650MG DOSE (2X325MG) PO PRN ×2 (00:17→23:54)
[2019-07-15] MEDS: KETOROLAC 30 MG/ML VIAL (J1885) IV PRN ×2 (02:31→20:38)
[2019-07-15 06:00] VITALS: BP 107/51
[2019-07-15] MEDS: metroNIDAZOLE (FLAGYL) 500 MG TAB PO SCH ×3 (06:03→20:38)
[2019-07-15] MEDS: NORCO, ANEXSIA 5/325MG TABLET (HYDROcodone/ACETAMINOPHEN) PO PRN ×3 (06:03→18:45)
[2019-07-15] MEDS: MOXIFLOXACIN 400 MG TAB PO SCH (06:03)
[2019-07-15 06:10] LABS: HEMOGLOBIN 10.8 g/dl (13.5-17.5); MEAN CORPUSCULAR HEMOGLOBIN 26.9 pg (27.0-33.0); MEAN CORPUSCULAR HGB CONC 32.7 g/dl (32.0-36.5); MEAN CORPUSCULAR VOLUME 82.1 fl (80.0-96.0); PLATELET COUNT, AUTOMATED 403 10^3/uL (150-450); RED BLOOD COUNT 4.02 10^6/uL (4.30-6.10); WHITE BLOOD COUNT 15.8 10^3/uL (4.0-10.0)
[2019-07-15 06:30] LABS: BLOOD UREA NITROGEN 23 MG/DL (7-18); CALCIUM LEVEL 8.4 MG/DL (8.8-10.2); CARBON DIOXIDE LEVEL 21 MEQ/L (21-32); CHLORIDE LEVEL 102 MEQ/L (98-107); CREATININE FOR GFR 0.85 MG/DL (0.70-1.30); GLOMERULAR FILTRATION RATE > 60.0 (>42); GLUCOSE, FASTING 115 MG/DL (70-100); POTASSIUM SERUM 3.8 MEQ/L (3.5-5.1); SODIUM LEVEL 135 MEQ/L (136-145)
[2019-07-15] MEDS: SYMBICORT 160/4.5MCG INHALER 6GM INH SCH ×2 (08:30→21:00)
[2019-07-15] MEDS: ENOXAPARIN 40 MG/0.4 ML SYRINGE (J1650) SC SCH (09:06)
[2019-07-15] MEDS: SENOKOT S TAB PO SCH ×2 (09:06→20:38)
[2019-07-15] MEDS: FAMOTIDINE 20 MG TAB PO SCH ×2 (09:06→20:38)
[2019-07-15] MEDS: FOLIC ACID 1 MG TAB PO SCH (09:06)
[2019-07-15] MEDS: FERROUS SULFATE 325MG TAB PO SCH ×2 (09:06→20:38)
[2019-07-15] MEDS: TAMSULOSIN 0.4 MG CAP PO SCH (09:06)
[2019-07-15] MEDS: amLODIPine 5 MG TAB PO SCH ×2 (09:06→20:41)
--- NOTE | 2019-07-15 11:25 | IPNPDOC ---
Text Note Date of Service The patient was seen on 07/15/19. NOTE Subjective: Patient was seen and examined at the bedside. . Currently he denies any nausea, vomiting, chest pain, shortness breath or palpitations. Patient has not had any bowel movements, however, he does note that ability to pass flatus. Objective: Vitals (See below) General: Lying in bed, no acute distress, comfortable, AAOx3 HEENT: NC, AT CVS: +S1S2 Lungs: Fair air entry b/l, -w/r/r Abdomen: Soft, ND, NT, 2 JUAN JOSE drains noted Extremities: - Edema, - Calf tenderness Assessment and plan: Perforated cecum - Patient was found to have stool within his abdomen while performing procedure, which was aborted - Clinically patient denies any nausea, vomiting, abdominal pain. Has not yet had a bowel movement, but does report that ability to pass gas - s/p surgical correction with Dr. Kebede on 07/13/2019 - Currently being managed by primary surgical team Leukocytosis - likely 2/2 above, possibly 2/2 pneumonia - Remains hemodynamically stable and afebrile - Leukocytosis appears to be improving today - CXR 07/14: New right lower lobe opacity. Pneumonia/atelectasis/effusion. - CT chest 07/14: 1. There is a small right pleural effusion with patchy right lower lobe opacities suspicious for pneumonia/atelectasis. Neoplastic change cannot be ruled out. There are no priors for comparison. 2. Marked chronic lung field changes, as described above. 3. There is a small pericardial effusion. - CT abdomen / pelvis 07/14: 1. It appears as though as if the patient has had right herniorrhaphy since 07/05/2019. The air-fluid level seen within the right inguinal canal adjacent to a surgical drainage tube is highly suspect for an abscess rather than a persistent inguinal hernia. 2. Small bowel ileus versus S ANNA. Correlate clinically with appropriate followup. 3. Small amount of free fluid in the abdomen and pelvis with multiple surgical drainage tubes in place. 4. There are other findings which appear essentially unchanged compared to the prior exam. - c/w Moxifloxacin (Day #2) HTN - BP well controlled - c/w Amlodipine COPD - No evidence of exacerbation - c/w Inhaled therapy as ordered BPH / Prostate CA - c/w Tamsulosin - Patient was scheduled for a procedure with urology, which was aborted - Follows with urology as an outpatient DVT prophylaxis - c/w Heparin VS,Fishbone, I+O VS, Fishbone, I+O Laboratory Tests 07/15/19 05:49 Red Blood Count 4.02 L, Mean Corpuscular Volume 82.1, Mean Corpuscular Hemoglobin 26.9 L, Mean Corpuscular Hemoglobin Concent 32.7, Red Cell Distribution Width 15.8 H, Calcium Level 8.4 #L Vital Signs Date Time Temp Pulse Resp B/P (MAP) Pulse Ox O2 Delivery O2 Flow Rate FiO2 07/15/19 09:06 88 107/51 07/15/19 06:33 15 07/15/19 06:00 97.9 95 07/11/19 13:15 2 I&O- Last 24 Hours up to 6 AM 07/15/19 06:00 Intake Total 1860 ml Output Total 1200 ml Balance 660 ml RADHA MARION MD Jul 15, 2019 11:25
--- NOTE | 2019-07-15 12:27 | IPNPDOC ---
Subjective General Date/Time Seen The patient was seen on 07/15/19 at 12:23. Subject Chief Complaint/History The patient is a 74-year-old male admitted with a reason for visit of Prostate Cancer/Bilateral Inguinal Hernia. No complaints, less grumpy today. Reports mild discomfort at groin, none on the abdomen. Tolerating regular food. Current Medications Current Medications Current Medications Medications (Trade) Dose Ordered Sig/Phan Route PRN Reason Start Time Stop Time Status Last Admin Dose Admin Acetaminophen (Tylenol Tab) 650 mg Q4HP PRN PO MILD PAIN or TEMP > 101 07/11/19 08:30 07/11/19 10:49 DC Acetaminophen (Tylenol Tab) 650 mg Q4HP PRN PO MILD PAIN or TEMP > 101 07/11/19 12:00 07/15/19 00:17 Acetaminophen/ Hydrocodone Bitart ([place], Anexsia 5/325) 2 tab Q6HP PRN PO SEVERE PAIN (PS 8-10) 07/11/19 12:00 07/15/19 06:03 Albuterol Sulfate (Proventil, Ventolin Hfa) 2 puff Q4H PRN INH WHEEZING 07/11/19 12:00 Albuterol Sulfate (Proventil, Ventolin Hfa) 2 puff Q4HP PRN INH SHORTNESS OF BREATH 07/11/19 08:30 07/11/19 12:16 DC Amlodipine Besylate (Norvasc) 5 mg BID PO 07/11/19 21:00 07/11/19 21:00 DC Amlodipine Besylate (Norvasc) 5 mg BID PO 07/11/19 21:00 07/15/19 09:06 Budesonide/ Formoterol Fumarate (Symbicort 160/ 4.5mcg) 2 puff BID INH 07/11/19 21:00 07/11/19 21:00 DC Budesonide/ Formoterol Fumarate (Symbicort 160/ 4.5mcg) 2 puff BID INH 07/11/19 21:00 07/15/19 08:30 Cefazolin Sodium 1 gm/Dextrose 50 ml @ 100 mls/hr Q8H IV 07/11/19 17:00 07/11/19 17:00 DC Ciprofloxacin (Cipro) 500 mg BID@06,18 PO 07/13/19 18:00 07/14/19 10:25 DC 07/14/19 05:26 Ciprofloxacin 400 mg/IV Miscellaneous Supplies 200 ml @ 200 mls/hr Q12H IV 07/11/19 13:00 07/13/19 20:39 DC 07/13/19 13:45 Docusate Sodium (Colace) 100 mg BID PO 07/11/19 21:00 07/11/19 21:00 DC Enoxaparin Sodium (Lovenox) 40 mg DAILY SC 07/12/19 09:00 07/15/19 09:06 Famotidine (Pepcid) 20 mg BID PO 07/11/19 21:00 07/15/19 09:06 Fentanyl Citrate (Sublimaze) 25 mcg Q5MP PRN IV MODERATE PAIN (PS 4-7) 07/11/19 12:30 07/11/19 13:17 DC 07/11/19 12:35 Ferrous Sulfate (Ferrous Sulfate) 325 mg BID PO 07/11/19 21:00 07/15/19 09:06 Folic Acid (Folic Acid) 1 mg DAILY PO 07/11/19 09:00 07/15/19 09:06 Heparin Sodium (Porcine) (Heparin) 5,000 units Q8H SC 07/11/19 14:00 07/11/19 14:00 DC Ketorolac Tromethamine (ToRADol) 15 mg Q6HP PRN IV MILD/MODERATE PAIN (PS 1-7) 07/11/19 12:00 07/16/19 11:59 07/15/19 02:31 Lactated Ringer's 1,000 ml @ 100 mls/hr Q10H IV 07/11/19 12:30 07/11/19 13:30 DC Metronidazole (Flagyl) 500 mg Q8H PO 07/13/19 22:00 07/15/19 06:03 Metronidazole 500 mg/IV Miscellaneous Supplies 100 ml @ 100 mls/hr Q8H IV 07/11/19 14:00 07/13/19 20:39 DC 07/13/19 05:27 Morphine Sulfate (Morphine Sulfate Inj) 2 mg Q2HP PRN IV SEVERE PAIN (PS 8-10) 07/11/19 08:30 07/11/19 10:49 DC Morphine Sulfate (Morphine Sulfate Inj) 2 mg Q2HP PRN IV SEVERE PAIN (PS 8-10) 07/11/19 12:00 07/12/19 09:03 DC 07/12/19 05:43 Moxifloxacin HCl (Avelox) 400 mg DAILY@06 PO 07/14/19 10:30 07/15/19 06:03 Ondansetron HCl (ZOFRAN INJection) 4 mg Q4HP PRN IV NAUSEA OR VOMITING 07/11/19 12:30 07/11/19 13:30 DC Ondansetron HCl (ZOFRAN INJection) 4 mg Q6HP PRN IV NAUSEA OR VOMITING 07/11/19 08:30 07/11/19 10:49 DC Ondansetron HCl (ZOFRAN INJection) 4 mg Q6HP PRN IV NAUSEA OR VOMITING 07/11/19 12:00 Oxycodone HCl (Roxicodone, Oxyir) 5 mg ASDIRECTED PRN PO MILD/MODERATE PAIN (PS 1-7) 07/11/19 12:30 07/11/19 13:30 DC Oxycodone/ Acetaminophen (Percocet 5mg/ 325mg Tablet) 1 tab Q4HP PRN PO MODERATE PAIN (PS 5-7) 07/11/19 08:30 07/11/19 10:49 DC Oxycodone/ Acetaminophen (Percocet 5mg/ 325mg Tablet) 2 tab Q4HP PRN PO MODERATE/SEVERE PAIN (PS 5-10) 07/11/19 08:30 07/11/19 10:49 DC Potassium Chloride/Dextrose/ Sod Cl 1,000 ml @ 125 mls/hr Q8H IV 07/11/19 12:00 07/12/19 09:03 DC 07/12/19 04:58 Senna/Docusate Sodium (Senokot S) 1 tab BID PO 07/11/19 21:00 07/15/19 09:06 Sodium Chloride 1,000 ml @ 80 mls/hr [id number] IV 07/13/19 11:00 07/13/19 23:29 DC 07/13/19 11:47 Sodium Chloride 1,000 ml @ 125 mls/hr Q8H IV 07/11/19 08:22 07/11/19 10:49 DC Tamsulosin HCl (Flomax) 0.4 mg DAILY PO 07/11/19 09:00 07/15/19 09:06 Tiotropium [place] (Spiriva Handihaler) 1 inhalation DAILY@08 INH 07/12/19 08:00 07/12/19 08:00 DC Allergies Coded Allergies: No Known Allergies (Unverified , 07/05/19) Objective Physical Examination Examination GENERAL APPEARANCE:looks comfortable. SKIN: Warm and moist. ABDOMEN: Abdomen is nondistended, soft, nontender on palpation. right upper drain slight [place] colored drainage, minimal. right lower drain with thick [place] drainage. EXTREMITIES: Extremities have no deformities. No edema identified. Vital Signs Vital Signs Date Time Temp Pulse Resp B/P (MAP) Pulse Ox O2 Delivery O2 Flow Rate FiO2 07/15/19 09:06 88 107/51 07/15/19 06:33 15 07/15/19 06:00 97.9 95 07/11/19 13:15 2 I&Os I&O- Last 24 Hours up to 6 AM 07/15/19 06:00 Intake Total 1860 ml Output Total 1200 ml Balance 660 ml Laboratory Data Labs 24H Laboratory Tests 2 07/15/19 05:49: Nucleated Red Blood Cells % (auto) 0.0, Anion Gap 12, Glomerular Filtration Rate > 60.0, Blood Urea Nitrogen 23H, Creatinine 0.85, Sodium Level 135L, Potassium Level 3.8, Chloride Level 102, Carbon Dioxide Level 21, Calcium Level 8.4#L CBC/BMP Laboratory Tests 07/15/19 05:49 Red Blood Count 4.02 L, Mean Corpuscular Volume 82.1, Mean Corpuscular Hemoglobin 26.9 L, Mean Corpuscular Hemoglobin Concent 32.7, Red Cell Distribution Width 15.8 H, Calcium Level 8.4 #L Microbiology Microbiology 07/14/19 Body Fluid Culture, Received Pending Impression Postop day 4 robotic-assisted laparoscopic repair of right inguinal scrotal hernia. Localized perforation of the herniating portion of the cecum status post partial cecectomy at the same time. Leukocytosis improving, cultures from the drainage pending. He is tolerating diet. Not looking sick. Once cultures are out can convert to oral abx and probably dc home with the drain. Plan / VTE VTE Prophylaxis Ordered?: Yes ROHINI EVANGELISTA MD Jul 15, 2019 12:27
[2019-07-15 14:15] VITALS: BP 88/51
[2019-07-15 20:41] VITALS: BP 108/50
[2019-07-15 22:00] VITALS: BP 114/56
[2019-07-16] MEDS: NORCO, ANEXSIA 5/325MG TABLET (HYDROcodone/ACETAMINOPHEN) PO PRN ×3 (03:15→20:41)
[2019-07-16] MEDS: metroNIDAZOLE (FLAGYL) 500 MG TAB PO SCH ×3 (05:37→20:41)
[2019-07-16] MEDS: MOXIFLOXACIN 400 MG TAB PO SCH (05:37)
[2019-07-16 06:00] VITALS: BP 99/48
[2019-07-16 06:10] LABS: HEMATOCRIT 33.2 % (42.0-52.0); HEMOGLOBIN 10.9 g/dl (13.5-17.5); MEAN CORPUSCULAR HEMOGLOBIN 26.6 pg (27.0-33.0); MEAN CORPUSCULAR HGB CONC 32.8 g/dl (32.0-36.5); PLATELET COUNT, AUTOMATED 389 10^3/uL (150-450); WHITE BLOOD COUNT 16.1 10^3/uL (4.0-10.0)
[2019-07-16 06:33] LABS: BLOOD UREA NITROGEN 24 MG/DL (7-18); CALCIUM LEVEL 7.9 MG/DL (8.8-10.2); CARBON DIOXIDE LEVEL 23 MEQ/L (21-32); CHLORIDE LEVEL 100 MEQ/L (98-107); CREATININE FOR GFR 0.79 MG/DL (0.70-1.30); GLOMERULAR FILTRATION RATE > 60.0 (>42); GLUCOSE, FASTING 123 MG/DL (70-100); POTASSIUM SERUM 3.7 MEQ/L (3.5-5.1); SODIUM LEVEL 134 MEQ/L (136-145)
--- NOTE | 2019-07-16 07:35 | IPNPDOC ---
Text Note Date of Service The patient was seen on 07/16/19. NOTE No acute events overnight. He is tolerating reg diet and having BMs. He only has pain in the right scrotum. He is not walking in the halls, and barely gets out of bed. VSSAF NAD abd - soft, TTP appropriate, incisions c/d/i, drains in place with cloudy output labs - below A) 74y/o male s/p RA repair of strangulated RIH with appendectomy, and cecectomy prostate CA COPD tobacco abuse right scrotal abscess P) reg diet ambulate in the halls IS monitor labs heating pad to right scrotum abx await culture results shower I have asked nursing to give him all of his pain meds and food from the nursing station to make him ambulate. I was able to put pressure on the scrotum and get a lot of fluid to come out in his drain, so he needs to ambulate more to get it to come out quicker. Ty Kebede DO VS,Mary, I+O VS, Mary, I+O Laboratory Tests 07/16/19 06:01 Red Blood Count 4.10 L, Mean Corpuscular Volume 81.0, Mean Corpuscular Hemoglobin 26.6 L, Mean Corpuscular Hemoglobin Concent 32.8, Red Cell Distribution Width 15.9 H, Calcium Level 7.9 L Vital Signs Date Time Temp Pulse Resp B/P (MAP) Pulse Ox O2 Delivery O2 Flow Rate FiO2 07/16/19 06:00 97.9 91 18 99/48 (65) 91 07/11/19 13:15 2 I&O- Last 24 Hours up to 6 AM 07/16/19 06:00 Intake Total 1110 ml Output Total 960 ml Balance 150 ml ROX KEBEDE DO Jul 16, 2019 07:35
[2019-07-16] MEDS: SYMBICORT 160/4.5MCG INHALER 6GM INH SCH ×2 (07:44→20:58)
[2019-07-16] MEDS: amLODIPine 5 MG TAB PO SCH ×3 (09:00→20:43)
[2019-07-16] MEDS: SENOKOT S TAB PO SCH ×2 (09:03→20:41)
[2019-07-16] MEDS: FOLIC ACID 1 MG TAB PO SCH (09:03)
[2019-07-16] MEDS: FERROUS SULFATE 325MG TAB PO SCH ×2 (09:03→20:41)
[2019-07-16] MEDS: FAMOTIDINE 20 MG TAB PO SCH ×2 (09:04→20:41)
[2019-07-16] MEDS: ENOXAPARIN 40 MG/0.4 ML SYRINGE (J1650) SC SCH (09:04)
[2019-07-16] MEDS: TAMSULOSIN 0.4 MG CAP PO SCH (09:04)
--- NOTE | 2019-07-16 11:19 | IPNPDOC ---
Text Note Date of Service The patient was seen on 07/16/19. NOTE Subjective: Patient was seen and examined laying in bed. Patient says he is feeling better than he had over the weekend. Patient's not had a bowel movement yet. Patient is still passing gas. Patient says he has gotten up to walk slightly however in talking with the nursing staff, they've not seen him out of his room that much and the patient does not really feel like going out of his room. There is no acute events overnight. We are still awaiting culture results from his intra-abdominal drain. Review of systems General: Patient denies fevers HEENT: Patient denies headaches Cardiovascular: Patient denies chest pain Respiratory: Patient denies shortness of breath, cough GI: Patient denies abdominal pain, nausea, vomiting, diarrhea : Patient denies pain or difficulty with urination Neurological: Patient denies numbness or tingling in extremities Extremities: Patient denies swelling or pain in extremities Objective: Vitals: (see below) General: No acute distress, laying comfortably in bed. HEENT: Normocephalic, atraumatic, moist mucous membranes. Neck: No JVD or lymphadenopathy Cardiac: RRR, No murmurs Pulm: Clear to auscultation b/l. No wheezing, rhonchi Abd: Patient has [address] There is swelling in the right side of the scrotum separate from the testicles. Patient denies any abdominal tenderness to palpation. Ext: No edema Labs (see below) Images: No new imaging and performed Assessment/Plan 1. Perforated cecum. Patient is clinically doing better but he has not had a bowel movement yet. Manage by surgical team primarily. We will continue to monitor. 2. Leukocytosis, likely secondary to above possibly secondary to pneumonia. Kassidy ent is hemodynamically stable and remains afebrile. Leukocytosis continued to improve. Patient also may have a abscess in the right inguinal canal which is currently being managed by surgery. The culture of this fluid is still pending. Patient was changed to moxifloxacin for coverage for possible pneumonia as well as intra-abdominal infection. We will continue to monitor. 3. Hypertension. Blood pressure is well controlled and will continue with the patient's amlodipine. 4. COPD. No evidence of exacerbation. Continue with inhaled therapy as ordered. 5. BPH/prostate cancer. Continue tamsulosin. We'll follow up with urology outpatient. DVT prophy: Heparin 5000 units every 8 hours Dispo: Pending clinical improvement. VS,Fishbone, I+O VS, Fishbone, I+O Laboratory Tests 07/16/19 06:01 Red Blood Count 4.10 L, Mean Corpuscular Volume 81.0, Mean Corpuscular Hemoglobin 26.6 L, Mean Corpuscular Hemoglobin Concent 32.8, Red Cell Distribution Width 15.9 H, Calcium Level 7.9 L Vital Signs Date Time Temp Pulse Resp B/P (MAP) Pulse Ox O2 Delivery O2 Flow Rate FiO2 07/16/19 09:00 92 107/48 07/16/19 06:00 97.9 18 91 07/11/19 13:15 2 I&O- Last 24 Hours up to 6 AM 07/16/19 06:00 Intake Total 1110 ml Output Total 960 ml Balance 150 ml GME ATTESTATION GME ATTESTATION My faculty preceptor for this patient encounter was physically present during the encounter and was fully available. All aspects of the patient interview, examination, medical decision making process, and medical care plan development were reviewed and approved by the faculty preceptor. The faculty preceptor is aware and concurs with the plan as stated in the body of this note and will attest to such by his/her cosignature. ATTENDING NOTE I, Raiza Marion, have independently examined this patient and performed my own physical exam, as well as reviewed the documentation and edited where necessary. I have discussed in detail with the resident / student the findings and plan of treatment as documented by the resident / student and edited their note. I agree with their findings and treatment plan and have edited their documentation. I will continue to follow the patient during this hospital stay. ROSA HEREDIA DO Jul 16, 2019 11:18 RAIZA MARION MD Jul 16, 2019 15:33
[2019-07-16 13:45] VITALS: BP 105/55
[2019-07-16 22:00] VITALS: BP 109/69
[2019-07-17] MEDS: metroNIDAZOLE (FLAGYL) 500 MG TAB PO SCH ×3 (05:47→22:33)
[2019-07-17] MEDS: MOXIFLOXACIN 400 MG TAB PO SCH (05:47)
[2019-07-17] MEDS: NORCO, ANEXSIA 5/325MG TABLET (HYDROcodone/ACETAMINOPHEN) PO PRN ×3 (05:48→22:31)
[2019-07-17 06:00] VITALS: BP 113/64
[2019-07-17 06:40] LABS: HEMATOCRIT 40.4 % (42.0-52.0); MEAN CORPUSCULAR HEMOGLOBIN 27.2 pg (27.0-33.0); MEAN CORPUSCULAR HGB CONC 32.7 g/dl (32.0-36.5); MEAN CORPUSCULAR VOLUME 83.1 fl (80.0-96.0); PLATELET COUNT, AUTOMATED 499 10^3/uL (150-450); RED BLOOD COUNT 4.86 10^6/uL (4.30-6.10); WHITE BLOOD COUNT 15.8 10^3/uL (4.0-10.0)
[2019-07-17 06:42] LABS: HEMOGLOBIN 13.2 g/dl (13.5-17.5)
[2019-07-17 06:52] LABS: BLOOD UREA NITROGEN 24 MG/DL (7-18); CALCIUM LEVEL 8.7 MG/DL (8.8-10.2); CARBON DIOXIDE LEVEL 23 MEQ/L (21-32); CHLORIDE LEVEL 99 MEQ/L (98-107); CREATININE FOR GFR 0.82 MG/DL (0.70-1.30); GLOMERULAR FILTRATION RATE > 60.0 (>42); GLUCOSE, FASTING 140 MG/DL (70-100); POTASSIUM SERUM 3.8 MEQ/L (3.5-5.1); SODIUM LEVEL 132 MEQ/L (136-145)
[2019-07-17] MEDS: SYMBICORT 160/4.5MCG INHALER 6GM INH SCH ×2 (07:58→20:42)
--- NOTE | 2019-07-17 08:38 | IPNPDOC ---
Text Note Date of Service The patient was seen on 07/17/19. NOTE No acute events overnight. He is still not walking in the halls, and barely gets out of bed. I asked nursing to give him all pain meds and meals at the first front ventilator. However, they report that he just isn't eating. He claims that he did go get a meal last evening and walk the halls, but there is nothing from nursing to prove that. VSSAF NAD abd - soft, TTP appropriate, incisions c/d/i, drains in place with cloudy output labs - below A) 74y/o male s/p RA repair of strangulated RIH with appendectomy, and cecectomy prostate CA COPD tobacco abuse right scrotal abscess non compliance P) reg diet ambulate in the halls IS monitor labs heating pad to right scrotum abx shower pain meds and food from the nursing station PT eval for home I explained to him that he needs to get out of bed and move, and also to shower. He continues to come up with excuses and just wants to lay in bed. Ty Kebede DO VS,Fishvidhyae, I+O VS, Fishbone, I+O Laboratory Tests 07/17/19 06:19 Red Blood Count 4.86, Mean Corpuscular Volume 83.1, Mean Corpuscular Hemoglobin 27.2, Mean Corpuscular Hemoglobin Concent 32.7, Red Cell Distribution Width 15.8 H, Calcium Level 8.7 L Vital Signs Date Time Temp Pulse Resp B/P (MAP) Pulse Ox O2 Delivery O2 Flow Rate FiO2 07/17/19 06:18 16 07/17/19 06:00 97.7 90 113/64 (80) 94 07/11/19 13:15 2 I&O- Last 24 Hours up to 6 AM 07/17/19 05:59 Intake Total 120 ml Output Total 315 ml Balance -195 ml ROX KEBEDE DO Jul 17, 2019 08:38
[2019-07-17] MEDS: FAMOTIDINE 20 MG TAB PO SCH ×2 (09:24→22:33)
[2019-07-17] MEDS: TAMSULOSIN 0.4 MG CAP PO SCH (09:24)
[2019-07-17] MEDS: FERROUS SULFATE 325MG TAB PO SCH ×2 (09:24→22:33)
[2019-07-17] MEDS: SENOKOT S TAB PO SCH ×2 (09:24→22:33)
[2019-07-17] MEDS: ENOXAPARIN 40 MG/0.4 ML SYRINGE (J1650) SC SCH (09:24)
[2019-07-17 09:26] VITALS: BP 110/65
[2019-07-17] MEDS: amLODIPine 5 MG TAB PO SCH ×2 (09:26→22:33)
[2019-07-17] MEDS: FOLIC ACID 1 MG TAB PO SCH (09:26)
--- NOTE | 2019-07-17 11:30 | IPNPDOC ---
Text Note Date of Service The patient was seen on 07/17/19. NOTE Subjective: Patient was seen and examined at bedside. Patient was laying on his side and did not really want to communicate today. Apparently, patient has not been getting up and walking around as instructed by surgery. Patient says he has been walking around and had 2 large bowel movements yesterday. Surgery has written for his medications and trays to be given out at the nurses station and the patient has to walk to the nurses station to pick them up. No acute events overnight. Review of systems General: Patient denies fevers HEENT: Patient denies headaches Cardiovascular: Patient denies chest pain Respiratory: Patient denies shortness of breath, cough GI: Patient was able to have a bowel movement yesterday. Patient denies any abdominal pain. : Patient denies pain or difficulty with urination Neurological: Patient denies numbness or tingling in extremities Extremities: Patient denies swelling or pain in extremities Objective: Vitals: (see below) General: No acute distress, laying comfortably in bed. HEENT: Normocephalic, atraumatic, moist mucous membranes. Neck: No JVD or lymphadenopathy Cardiac: RRR, No murmurs Pulm: Clear to auscultation b/l. No wheezing, rhonchi Abd: Patient has [address] in his abdomen. Incisions are clean and dry. Patient still has right scrotal swelling. Patient denies abdominal tenderness to palpation. Ext: No edema or cyanosis. Radial, posterior tibial, and dorsalis pedis pulses equal bilaterally. Labs (see below) Images: No new imaging has been performed. Assessment/Plan 1. Perforated cecum. Patient is clinically doing better. Patient has had a bowel movement. Management by primary surgical team. Surgical team is adamant about the patient moving around more which the patient is not doing. Patient only wants to lay in bed all day. 2. Leukocytosis, likely secondary to perforated cecum. Patient is hemodynamical ly stable and afebrile. Leukocytosis continues to improve. Surgery is managing a abscess in the right inguinal canal. Culture of this fluid showed normal skin ady. 3. Hypertension. Blood pressure is well-controlled and we'll continue patient's amlodipine 4. COPD. No evidence of exacerbation. Continue with inhaled therapy as ordered. 5. BPH /prostate cancer. Continue tamsulosin. Patient will follow-up with urology DVT prophy: Heparin 5000 units every 8 hours Dispo: Pending surgical clearance I saw and evaluated the patient. I agree with the findings and plan of care as documented in the above note Mary CESAR, I+O Mary CESAR, I+O Laboratory Tests 07/17/19 06:19 Red Blood Count 4.86, Mean Corpuscular Volume 83.1, Mean Corpuscular Hemoglobin 27.2, Mean Corpuscular Hemoglobin Concent 32.7, Red Cell Distribution Width 15.8 H, Calcium Level 8.7 L Vital Signs Date Time Temp Pulse Resp B/P (MAP) Pulse Ox O2 Delivery O2 Flow Rate FiO2 07/17/19 09:26 100 110/65 07/17/19 06:18 16 07/17/19 06:00 97.7 94 07/11/19 13:15 2 I&O- Last 24 Hours up to 6 AM 07/17/19 05:59 Intake Total 120 ml Output Total 315 ml Balance -195 ml ROSA HEREDIA DO Jul 17, 2019 11:30 RUFUS SALINAS MD Jul 18, 2019 12:08
[2019-07-17] MEDS: D5W/0.45% SODIUM CHLORIDE 1,000 ML IV SCH ×2 (13:01→22:30)
[2019-07-17 22:00] VITALS: BP 105/51
[2019-07-18 06:00] VITALS: BP 105/50
[2019-07-18] MEDS: metroNIDAZOLE (FLAGYL) 500 MG TAB PO SCH ×3 (06:02→21:32)
[2019-07-18] MEDS: D5W/0.45% SODIUM CHLORIDE 1,000 ML IV SCH ×3 (06:02→21:32)
[2019-07-18] MEDS: NORCO, ANEXSIA 5/325MG TABLET (HYDROcodone/ACETAMINOPHEN) PO PRN ×3 (06:03→19:09)
[2019-07-18] MEDS: MOXIFLOXACIN 400 MG TAB PO SCH (06:03)
[2019-07-18 06:45] LABS: HEMOGLOBIN 12.4 g/dl (13.5-17.5); MEAN CORPUSCULAR HEMOGLOBIN 26.4 pg (27.0-33.0); MEAN CORPUSCULAR HGB CONC 31.8 g/dl (32.0-36.5); PLATELET COUNT, AUTOMATED 554 10^3/uL (150-450); WHITE BLOOD COUNT 12.8 10^3/uL (4.0-10.0)
[2019-07-18 07:09] LABS: BLOOD UREA NITROGEN 19 MG/DL (7-18); CALCIUM LEVEL 8.2 MG/DL (8.8-10.2); CARBON DIOXIDE LEVEL 25 MEQ/L (21-32); CHLORIDE LEVEL 101 MEQ/L (98-107); CREATININE FOR GFR 0.73 MG/DL (0.70-1.30); GLOMERULAR FILTRATION RATE > 60.0 (>42); GLUCOSE, FASTING 154 MG/DL (70-100); POTASSIUM SERUM 3.8 MEQ/L (3.5-5.1); SODIUM LEVEL 134 MEQ/L (136-145)
[2019-07-18] MEDS: SYMBICORT 160/4.5MCG INHALER 6GM INH SCH ×2 (08:41→20:39)
[2019-07-18] MEDS: FERROUS SULFATE 325MG TAB PO SCH ×2 (09:19→21:32)
[2019-07-18] MEDS: FOLIC ACID 1 MG TAB PO SCH (09:19)
[2019-07-18] MEDS: SENOKOT S TAB PO SCH ×2 (09:19→21:32)
[2019-07-18] MEDS: ENOXAPARIN 40 MG/0.4 ML SYRINGE (J1650) SC SCH (09:19)
[2019-07-18] MEDS: TAMSULOSIN 0.4 MG CAP PO SCH (09:21)
[2019-07-18] MEDS: FAMOTIDINE 20 MG TAB PO SCH ×2 (09:21→21:32)
[2019-07-18] MEDS: amLODIPine 5 MG TAB PO SCH ×2 (09:21→21:00)
--- NOTE | 2019-07-18 11:45 | IPNPDOC ---
Text Note Date of Service The patient was seen on 07/18/19. NOTE No acute events overnight. He is still not walking in the halls much and refused PT yesterday. He is getting out to the nursing station when he wants pain meds, but is not eating much. VSSAF NAD abd - soft, TTP appropriate, incisions c/d/i, drains in place with thick cloudy output labs - below WBC improving A) 74y/o male s/p RA repair of strangulated RIH with appendectomy, and cecectomy prostate CA COPD tobacco abuse right scrotal abscess non compliance P) reg diet ambulate in the halls IS monitor labs heating pad to right scrotum abx shower pain meds and food from the nursing station PT eval for home drain teaching possible d/c tomorrow with the drains if WBC improves. Ty Kebede DO VS,Mary, I+O VS, Fishvidhyae, I+O Laboratory Tests 07/18/19 06:07 Red Blood Count 4.70, Mean Corpuscular Volume 83.0, Mean Corpuscular Hemoglobin 26.4 L, Mean Corpuscular Hemoglobin Concent 31.8 L, Red Cell Distribution Width 15.9 H, Calcium Level 8.2 L Vital Signs Date Time Temp Pulse Resp B/P (MAP) Pulse Ox O2 Delivery O2 Flow Rate FiO2 07/18/19 11:33 18 07/18/19 09:21 100 112/53 07/18/19 06:00 97.9 95 I&O- Last 24 Hours up to 6 AM 07/18/19 06:00 Intake Total 1230 ml Output Total 1365 ml Balance -135 ml ROX KEBEDE DO Jul 18, 2019 11:45
--- NOTE | 2019-07-18 11:50 | IPNPDOC ---
Text Note Date of Service The patient was seen on 07/18/19. NOTE Subjective: Patient was seen and examined at bedside. Patient says he's been getting up and walking around. Patient is still passing gas and had a bowel movement. Patient is not complaining of any abdominal pain. Patient knows he has worked with physical therapy and will try to work with physical therapy today. No acute events overnight. Review of systems General: Patient denies fevers HEENT: Patient denies headaches Cardiovascular: Patient denies chest pain Respiratory: Patient denies shortness of breath, cough GI: Patient denies abdominal pain, nausea, vomiting, diarrhea : Patient denies pain or difficulty with urination Neurological: Patient denies numbness or tingling in extremities Extremities: Patient denies swelling or pain in extremities Objective: Vitals: (see below) General: No acute distress, laying comfortably in bed. HEENT: Normocephalic, atraumatic, moist mucous membranes. Neck: No JVD or lymphadenopathy Cardiac: RRR, No murmurs Pulm: Clear to auscultation b/l. No wheezing, rhonchi Abd: Patient is to drains in place in his abdomen. Incisions are healing well. Patient denies any tenderness to palpation. There is still swelling in the right side of the scrotum. Ext: No edema or cyanosis. Radial, posterior tibial, and dorsalis pedis pulses equal bilaterally. Labs (see below) Images: No new imaging has been performed Assessment/Plan 1. Perforated cecum. Patient is clinically doing better. Patient has had a bowel movement. Management by primary surgical team. Surgical seems adamant the patient needs to be moving around more which the patient is doing. We will continue to monitor. 2. Leukocytosis. This continues to improve and we will continue with the antibiotics. 3. Hyponatremia. This continues to remain stable. I believe this is most likely secondary to hypovolemic hyponatremia as the patient is not eating and drinking very much. Patient was started on IV fluids yesterday. We will continue to monitor. 4. Hypertension. Blood pressure is well controlled and we'll continue patient's amlodipine. 5. COPD. No evidence of acute exacerbation. Continue with inhaled therapy as ordered. 6. BPH/prostate cancer. Continue tamsulosin Patient will follow-up with urology. DVT prophy: Heparin 5000 units every 8 hours Dispo: Pending clearance from surgery. I saw and evaluated the patient. I agree with the findings and plan of care as documented in the above note VSMary, I+O VSMary, I+O Laboratory Tests 07/18/19 06:07 Red Blood Count 4.70, Mean Corpuscular Volume 83.0, Mean Corpuscular Hemoglobin 26.4 L, Mean Corpuscular Hemoglobin Concent 31.8 L, Red Cell Distribution Width 15.9 H, Calcium Level 8.2 L Vital Signs Date Time Temp Pulse Resp B/P (MAP) Pulse Ox O2 Delivery O2 Flow Rate FiO2 07/18/19 11:33 18 07/18/19 09:21 100 112/53 07/18/19 06:00 97.9 95 I&O- Last 24 Hours up to 6 AM 07/18/19 06:00 Intake Total 1230 ml Output Total 1365 ml Balance -135 ml ROSA HEREDIA DO Jul 18, 2019 11:50 RUFUS SALINAS MD Jul 20, 2019 09:53
[2019-07-18 14:08] VITALS: BP 113/59
[2019-07-18 22:00] VITALS: BP 96/52
[2019-07-19] MEDS: NORCO, ANEXSIA 5/325MG TABLET (HYDROcodone/ACETAMINOPHEN) PO PRN (01:41)
[2019-07-19] MEDS: D5W/0.45% SODIUM CHLORIDE 1,000 ML IV SCH (04:58)
[2019-07-19] MEDS: metroNIDAZOLE (FLAGYL) 500 MG TAB PO SCH (04:58)
[2019-07-19] MEDS: ACETAMINOPHEN TAB 650MG DOSE (2X325MG) PO PRN (04:58)
[2019-07-19] MEDS: MOXIFLOXACIN 400 MG TAB PO SCH (04:58)
[2019-07-19 06:00] VITALS: BP 93/49
[2019-07-19 07:03] LABS: HEMATOCRIT 33.9 % (42.0-52.0); HEMOGLOBIN 10.7 g/dl (13.5-17.5); MEAN CORPUSCULAR HEMOGLOBIN 26.7 pg (27.0-33.0); MEAN CORPUSCULAR HGB CONC 31.6 g/dl (32.0-36.5); MEAN CORPUSCULAR VOLUME 84.5 fl (80.0-96.0); PLATELET COUNT, AUTOMATED 499 10^3/uL (150-450); RED BLOOD COUNT 4.01 10^6/uL (4.30-6.10); WHITE BLOOD COUNT 8.7 10^3/uL (4.0-10.0)
[2019-07-19 07:19] LABS: BLOOD UREA NITROGEN 8 MG/DL (7-18); CALCIUM LEVEL 7.4 MG/DL (8.8-10.2); CARBON DIOXIDE LEVEL 22 MEQ/L (21-32); CHLORIDE LEVEL 106 MEQ/L (98-107); CREATININE FOR GFR 0.58 MG/DL (0.70-1.30); GLOMERULAR FILTRATION RATE > 60.0 (>42); GLUCOSE, FASTING 130 MG/DL (70-100); POTASSIUM SERUM 3.6 MEQ/L (3.5-5.1); SODIUM LEVEL 136 MEQ/L (136-145)
[2019-07-19] MEDS: SYMBICORT 160/4.5MCG INHALER 6GM INH SCH (08:43)
[2019-07-19 09:00] VITALS: BP 93/49
[2019-07-19] MEDS: amLODIPine 5 MG TAB PO SCH (09:00)
[2019-07-19] MEDS: TAMSULOSIN 0.4 MG CAP PO SCH (09:09)
[2019-07-19] MEDS: FERROUS SULFATE 325MG TAB PO SCH (09:09)
[2019-07-19] MEDS: FAMOTIDINE 20 MG TAB PO SCH (09:09)
[2019-07-19] MEDS: FOLIC ACID 1 MG TAB PO SCH (09:09)
[2019-07-19] MEDS: SENOKOT S TAB PO SCH (09:10)
[2019-07-19] MEDS: ENOXAPARIN 40 MG/0.4 ML SYRINGE (J1650) SC SCH (09:10)
[2019-07-19] MEDS ORDERED: FLAG500T PO (09:26)
[2019-07-19] MEDS ORDERED: CIPR500T3 PO (09:26)
--- NOTE | 2019-07-19 11:35 | IPNPDOC ---
Text Note Date of Service The patient was seen on 07/19/19. NOTE Subjective: Patient is doing well today. Patient has been up walking around and is taking a shower. Patient has had a bowel movement. Plan is for general surgery to discharge the patient today as his leukocytosis has improved. Patient not complaining of any pain and says the swelling in his scrotum is improved. Review of systems General: Patient denies fevers HEENT: Patient denies headaches Cardiovascular: Patient denies chest pain Respiratory: Patient denies shortness of breath, cough GI: Patient denies abdominal pain, nausea, vomiting, diarrhea : Patient denies pain or difficulty with urination Neurological: Patient denies numbness or tingling in extremities Extremities: Patient denies swelling or pain in extremities Objective: Vitals: (see below) General: No acute distress, laying comfortably in bed. HEENT: Normocephalic, atraumatic, moist mucous membranes. Neck: No JVD or lymphadenopathy Cardiac: RRR, No murmurs Pulm: Clear to auscultation b/l. No wheezing, rhonchi Abd: Patient has [address] which are draining serous fluid. The swelling in the patient's scrotum has decreased. No tenderness to palpation. Ext: No edema or cyanosis. Radial, posterior tibial, and dorsalis pedis pulses equal bilaterally. Labs (see below) Images: No new imaging has been performed. Assessment/Plan 1. Perforated cecum. Patient is doing clinically better and has been discharged by the primary surgical team. 2. Leukocytosis, resolved. Patient will continue antibiotics outpatient per surgery. 3. Hyponatremia, resolved. Patient was not having good oral intake was started on IV fluids yesterday which resolved the patient's hyponatremia. 4. Hypertension. Patient's blood pressures will control any continue home medications. 5. COPD. No evidence of acute exacerbation. Continue home medications outpatient. 6. BPH/prostate cancer. Continue tamsulosin and follow-up with urology outpatient. DVT prophy: Heparin 5000 units every 8 hours. Dispo: Patient is been discharged by general surgery. I saw and evaluated the patient. I agree with the findings and plan of care as documented in the above note VS,Mary, I+O VS, Mary, I+O Laboratory Tests 07/19/19 06:21 Red Blood Count 4.01 L, Mean Corpuscular Volume 84.5, Mean Corpuscular Hemoglobin 26.7 L, Mean Corpuscular Hemoglobin Concent 31.6 L, Red Cell Distribution Width 15.8 H, Calcium Level 7.4 L Vital Signs Date Time Temp Pulse Resp B/P (MAP) Pulse Ox O2 Delivery O2 Flow Rate FiO2 07/19/19 09:00 90 93/49 07/19/19 06:00 97.6 17 93 I&O- Last 24 Hours up to 6 AM 07/19/19 06:00 Intake Total 2865 ml Output Total 1000 ml Balance 1865 ml ROSA HEREDIA DO Jul 19, 2019 11:35 RUFUS SALINAS MD Jul 20, 2019 09:55
--- NOTE | 2019-07-19 17:39 | DSES ---
DATE OF ADMISSION: 07/11/2019 DATE OF DISCHARGE: 07/19/2019 REASON FOR ADMISSION: Prostate cancer and incarcerated right inguinal hernia. DISCHARGE DIAGNOSIS: Prostate cancer with a strangulated right inguinal hernia with a perforation. HOSPITAL COURSE: The patient is a 74-year-old male who came in electively for surgery on 07/12/2019 for a robotic prostatectomy and incarcerated right inguinal hernia repair. Intraoperatively, he had stool coming out of the hernia sac on the right groin and had a perforated cecum within the hernia sac. He underwent a cecal resection with an appendectomy as well as primary repair of the right inguinal hernia. He had a drain left down into the hernia sac inside of the scrotum postoperatively, as well as a drain inside of the lower abdomen. The prostate surgery was placed on hold due to the infection in the area. He was sent back to his room. Postoperatively, he was on regular diet. He was tolerating food. No problems with ileus or nausea or vomiting. Pain was controlled, but he did have significant infection and abscess formation in that right scrotum because he was not mobilizing the fluid out of there. He was noncompliant, was refusing medications, refused to walk, refused to get out of bed. Eventually, I was able to express how important it was for him to be moving to get that fluid out of his scrotal hernia sac. Otherwise, he was going to continue to get worse. I was able to press on it every morning and squeeze pus into the drain, but then he did not do anything else during the day. Eventually had all of his pain medications and meals brought to the desktop publishing specialist and made him get out of bed and walk to the desk to receive those. He did occasionally. At other times, he just refused them and just laid in bed anyway. Finally, after he kept complaining about wanting to go home, he realized that when he did get up and move around, he was starting to improve. He slowly got better over the next couple of days. His white count returned back to normal and plan is discharge him home today with oral Cipro and Flagyl for another week. The drain inside the abdomen is serous now. That drain is removed. The one down in the hernia sac is still very cloudy and greenish-looking. That will be left in place for at least one more week. He is just being discharged home today. He has got home care to assist him with dressing changes and emptying his drain. He also has the oral antibiotics that he will last picker. All of his questions are answered and he is discharged home today. He will follow up with me in a week.
== END 2019-07-19 10:45 | disposition home health service (06) | DRG 329 ==
LOC: M OR 06:53 → M MS5PR 13:30
PROVIDERS: ADMIT Urology; ATTEND Surgery
PROC: 0DTJ4ZZ Resection of Appendix, Percutaneous Endoscopic Approach (ICD-10-PCS; 2019-07-11)
PROC: 8E0W4CZ Robotic Assisted Procedure of Trunk Region, Percutaneous Endoscopic Approach (ICD-10-PCS; 2019-07-11)
PROC: 0DBH4ZZ Excision of Cecum, Percutaneous Endoscopic Approach (ICD-10-PCS; principal; 2019-07-11 08:30)
DX: K40.00 Bilateral inguinal hernia, with obstruction, without gangrene, not specified as recurrent (principal); K63.1 Perforation of intestine (nontraumatic); K56.7 Ileus, unspecified; E87.1 Hypo-osmolality and hyponatremia; C61 Malignant neoplasm of prostate; I11.9 Hypertensive heart disease without heart failure; J44.9 Chronic obstructive pulmonary disease, unspecified; F17.218 Nicotine dependence, cigarettes, with other nicotine-induced disorders; R91.8 Other nonspecific abnormal finding of lung field; N49.2 Inflammatory disorders of scrotum; Z53.09 Procedure and treatment not carried out because of other contraindication; Z79.899 Other long term (current) drug therapy

== ENCOUNTER 2019-08-20 17:03 | Emergency (ER) | payer OTHER ==
[~2019-08-20] VITALS: Ht 182.9 cm; Wt 74.7 kg
[2019-08-20 17:03] VITALS: BP 158/76
[~2019-08-20 17:03] MED LIST changes: +CIPR500T3 PO; +FLAG500T PO; -HEPARIN SOD (PORCINE) 5000 UNITS/ML VIAL SQ ONE; -LR 1,000 ML IV ONE; +OXYC1TAB23 PO; +SYMB16INH INH
[2019-08-20] MEDS ORDERED: LIDOCAINE 2% 5ML JELLY UROJET TOP ONE (17:15)
== END 2019-08-20 19:24 | disposition home or self-care (01) ==
LOC: M ED 17:03
DX: R33.9 Retention of urine, unspecified (principal); N40.1 Benign prostatic hyperplasia with lower urinary tract symptoms; T83.098A Other mechanical complication of other urinary catheter, initial encounter; X58.XXXA Exposure to other specified factors, initial encounter; Y92.89 Other specified places as the place of occurrence of the external cause; C61 Malignant neoplasm of prostate; I10 Essential (primary) hypertension; J44.9 Chronic obstructive pulmonary disease, unspecified; H35.30 Unspecified macular degeneration; D50.9 Iron deficiency anemia, unspecified; Z79.899 Other long term (current) drug therapy; F17.210 Nicotine dependence, cigarettes, uncomplicated

== ENCOUNTER → 2019-11-05 | Outpatient (REF) | payer OTHER ==
[~2019-11-05] MED LIST changes: +FERR325T3 PO
[2019-11-05 13:59] LABS: APPEARANCE, URINE HAZY (CLEAR); BACTERIA, URINE AUTO NEGATIVE (NEGATIVE); BILIRUBIN, URINE AUTO NEGATIVE (NEGATIVE); BLOOD, URINE BLOOD 2+ (NEGATIVE); COLOR, URINE YELLOW (YELLOW); GLUCOSE, URINE (UA) AUTO NEGATIVE (NEGATIVE); KETONE, URINE AUTO NEGATIVE (NEGATIVE); LEUKOCYTE ESTERASE, URINE AUTO 3+ (NEGATIVE); NITRITE, URINE AUTO NEGATIVE (NEGATIVE); PROTEIN, URINE AUTO 1+ mg/dL (NEGATIVE); RBC, URINE AUTO 53 /HPF (0-3); SPECIFIC GRAVITY URINE AUTO 1.016 (1.002-1.035); SQUAMOUS EPITHELIAL CELL UR AU 0 /HPF (0-6); UROBILINOGEN, URINE AUTO 0.2 mg/dL (0.0-2.0); WBC, URINE AUTO 78 /HPF (0-3)
== END ==
LOC: M SMT 13:34
PROVIDERS: ATTEND Urology
DX: N28.89 Other specified disorders of kidney and ureter (principal)

== ENCOUNTER 2019-11-15 07:30 | Inpatient (IN) | payer OTHER ==
[~2019-11-15] VITALS: Ht 188 cm; Wt 82.0 kg
[~2019-11-15 07:30] MED LIST changes: +LR 1,000 ML IV ONE; +ceFAZolin SOD 2 GM in IV 1 EA IV ONE
[2019-11-15] MEDS ORDERED: ACETAMINOPHEN 1000MG 100ML IV BTL (OFIRMEV) (J0131 PER 10MG) As Ordered ONE (08:45)
[2019-11-15] MEDS ORDERED: ROCURONIUM BROMIDE 50 MG/5 ML VIAL As Ordered ONE (08:45)
[2019-11-15] MEDS ORDERED: ONDANSETRON 4MG/2ML VIAL (J2405) As Ordered ONE (08:45)
[2019-11-15] MEDS ORDERED: SUGAMMADEX SODIUM 500 MG/5 ML VIAL (BRIDION) As Ordered ONE (08:45)
[2019-11-15] MEDS ORDERED: HYDROmorphone HCL 2 MG/ML 1ML VIAL (J1170) As Ordered ONE (08:45)
[2019-11-15] MEDS ORDERED: LIDOCAINE 2% INJ 100 MG/5 ML SDV (FOR ANES.) As Ordered ONE (08:45)
[2019-11-15] MEDS ORDERED: propofoL 200 MG/20 ML VIAL As Ordered ONE (08:45)
[2019-11-15] MEDS ORDERED: dexameTHASONE 4 MG/ML 1ML VIAL (J1100) As Ordered ONE (08:45)
[2019-11-15] MEDS ORDERED: MIDAZOLAM INJ 2 MG/2 ML VIAL (J2250) As Ordered ONE (08:46)
[2019-11-15] MEDS ORDERED: fentaNYL 100 MCG/2 ML INJECTION (J3010) As Ordered ONE (08:46)
[2019-11-15] MEDS ORDERED: HEPARIN SOD (PORCINE) 5000 UNITS/ML VIAL SQ ONE (10:00)
[2019-11-15] MEDS ORDERED: LIDOCAINE 1% SDV INJ 30 ML VIAL As Ordered ONE (11:21)
[2019-11-15] MEDS ORDERED: BUPIVACAINE HCL 0.25% 30 ML VIAL As Ordered ONE (11:21)
[2019-11-15] MEDS ORDERED: PERCOCET 5MG/325MG TAB PO PRN ×2 (12:00→18:15)
[2019-11-15] MEDS ORDERED: MORPHINE 2 MG/ML 1ML VIAL (J2270) IV PRN (12:00)
[2019-11-15] MEDS ORDERED: ACETAMINOPHEN TAB 650MG DOSE (2X325MG) PO PRN (12:00)
[2019-11-15] MEDS ORDERED: ONDANSETRON 4MG/2ML VIAL (J2405) IV PRN ×2 (12:00→18:15)
[2019-11-15] MEDS ORDERED: ALBUTEROL 90 MCG/ACT 8GM HFA INHALER INH PRN (12:00)
[2019-11-15] MEDS ORDERED: HEPARIN SOD (PORCINE) 5000 UNITS/ML VIAL SC SCH (14:00)
--- NOTE | 2019-11-15 17:55 | ROOPDOC ---
[facility] Report Of Operation Report of Operation DATE OF PROCEDURE: 11/15/19 PREPROCEDURE DIAGNOSES: Prostate Cancer. POSTPROCEDURE DIAGNOSES: Prostate Cancer. PROCEDURE: Robotic-assisted Laparoscopic Radical Prostatectomy and Anterior Bladder Neck Reconstruction. SURGEON: Carmelina Albarran MD DIRECTOR WEB: Jennifer Garcia NP ANESTHESIA: General. OPERATIVE INDICATIONS: This is a 74 year old male with clinical T1c [place] 3+3 prostate cancer, here today for treatment. DESCRIPTION OF PROCEDURE: The patient was brought to the operating room and general anesthesia was induced. Prophylactic antibiotics were infused. He was then placed in the supine position and prepped and draped in the usual sterile fashion. At this point, a Pringle catheter was inserted into the bladder and the balloon was filled with 10 mL of sterile water. We then made a midline incision just above the umbilicus for an 8 mm port. A Veress needle was utilized to achieve pneumoperitoneum. Next, an 8 mm port was inserted into the incision and subsequently a camera was inserted. There were no injuries from the Veress needle or initial trocar placement. Then three robotic ports were placed in the usual configuration in line just below the level of the umbilicus. An 12 mm team assistant port was inserted lateral to the camera port. Once all the ports were placed, the robot was docked. Additional lysis of adhesions between the sigmoid colon and abdominal wall was then performed. The bladder was then released from the anterior abdominal wall using electrocautery. Once the bladder was dropped, the fat overlying the prostate was cleared using electrocautery. The superficial dorsal vein was controlled with electrocautery. The endopelvic fascia was opened on both sides and the dorsal venous complex was cleared. Next, a #0 Vicryl [id number] stitch was placed around the dorsal venous complex. Once that was done, the bladder was opened and dissected away from the prostate. Of note, dissecting the bladder away from the prostate was complex due to the patient's large prostate and median lobe. After the bladder was dissected away, the prostate was lifted up. Due to the large size of the prostate, the patient's anatomy was distorted. I was not able to identify the vasa deferentia were identified in the midline. I was able to identify the right seminal vesicle. This was dissected away with the prostate. The rectum was safely mobilized away from the prostate. At this point I ligated and transected bilateral prostatic pedicles using the Harmonic scalpel. The pedicles were carried towards the apex. After taking care of the pedicles and mobilizing the rectum off the prostate below, the prostate was only connected by the urethra. At this point, the dorsal venous complex was transected with electrocautery. The urethra was then opened and the catheter was withdrawn and the posterior urethra was transected, thus freeing the prostate. At this point, we checked for hemostasis and it appeared very good. I then moved on to perform the vesicourethral anastomosis. The vesicourethral anastomosis was performed in running fashion using a Quill stitch. At the end of the anastomosis, I had to reconstruct the anterior bladder neck as the bladder neck opening was much larger than the urethra. The anterior bladder neck was therefore closed and the anastomosis was completed. Once this was done, the final #20-Yoruba Pringle catheter was placed. The balloon was filled with 15 mL of sterile water. Upon completion of the vesicourethral anastomosis, it was tested by filling the bladder with sterile water. The anastomosis appeared to be watertight. At this point, the prostate and seminal vesicles were placed in an Endo Catch bag for future retrieval. A Anil-Solitario drain was brought in through the left robotic port skin site and the drain was positioned anterior to the bladder. The robot was then undocked. A Rupesh-Randy fascial closure device was utilized to place a #0 Vicryl suture through the fascia of the 12 mm team assistant port. The drain was secured to the skin with #2-0 Ethilon suture. The prostate, as well as the lymphatic packets were then extracted from the camera port site after the skin was extended. The fascia in this incision was then closed with a running #0 Vicryl stitch. Next, all the remaining ports were removed and there did not appear to be any bleeding from any of the port sites. The previously placed #0 Vicryl free ties through the team assistant port were then tied down and all incisions were irrigated. Last, all of the incisions were closed with running subcuticular #4-0 Monocryl sutures. Local anesthesia was applied. Dermabond was then applied to the incisions. This marked the conclusion of the procedure. The patient was then awakened from anesthesia and transported to the recovery room in stable condition. ESTIMATED BLOOD LOSS: 550 mL. COMPLICATIONS: None. SPECIMENS: Prostate. PLAN: The patient will be admitted to the hospital postoperatively, and he will likely be discharged home within the next 1-2 days. CARMELINA ALBARRAN MD Nov 15, 2019 17:55
[2019-11-15] MEDS ORDERED: ALBUTEROL SULFATE 2.5 MG/0.5 ML INH NEB SOLN As Ordered ONE (17:59)
[2019-11-15] MEDS ORDERED: LR 1,000 ML IV SCH (18:15)
[2019-11-15] MEDS ORDERED: fentaNYL 100 MCG/2 ML INJECTION (J3010) IV PRN (18:15)
[2019-11-15] MEDS ORDERED: ALBUTEROL SULFATE 2.5 MG/0.5 ML INH NEB SOLN INH SCH (18:15)
[2019-11-15 18:34] LABS: HEMATOCRIT 42.9 % (42.0-52.0); HEMOGLOBIN 14.1 g/dl (13.5-17.5); MEAN CORPUSCULAR HEMOGLOBIN 28.8 pg (27.0-33.0); MEAN CORPUSCULAR HGB CONC 32.9 g/dl (32.0-36.5); MEAN CORPUSCULAR VOLUME 87.7 fl (80.0-96.0); PLATELET COUNT, AUTOMATED 290 10^3/uL (150-450); RED BLOOD COUNT 4.89 10^6/uL (4.30-6.10); WHITE BLOOD COUNT 13.9 10^3/uL (4.0-10.0)
[2019-11-15 18:47] LABS: BLOOD UREA NITROGEN 15 MG/DL (7-18); CALCIUM LEVEL 8.3 MG/DL (8.8-10.2); CARBON DIOXIDE LEVEL 25 MEQ/L (21-32); CHLORIDE LEVEL 107 MEQ/L (98-107); CREATININE FOR GFR 1.02 MG/DL (0.70-1.30); GLOMERULAR FILTRATION RATE > 60.0 (>42); GLUCOSE, FASTING 147 MG/DL (70-100); POTASSIUM SERUM 4.8 MEQ/L (3.5-5.1); SODIUM LEVEL 138 MEQ/L (136-145)
[2019-11-15] MEDS: NS 1,000 ML IV SCH ×2 (19:00→22:00)
[2019-11-15 19:47] VITALS: BP 142/92
[2019-11-15 20:17] VITALS: BP 143/90
[2019-11-15] MEDS: DOCUSATE SODIUM 100 MG CAP PO SCH (21:00)
[2019-11-15 21:17] VITALS: BP 141/93
[2019-11-15] MEDS: SYMBICORT 160/4.5MCG INHALER 6GM INH SCH (21:51)
[2019-11-15] MEDS: ceFAZolin SOD 1 GM in D5W MINI-BAG PLUS 50 ML IV SCH (22:00)
[2019-11-15] MEDS: amLODIPine 5 MG TAB PO SCH (22:02)
[2019-11-15] MEDS: HEPARIN SOD (PORCINE) 5000 UNITS/ML VIAL SC SCH (22:03)
[2019-11-15 22:20] VITALS: BP 169/98
[2019-11-15 23:15] VITALS: BP 160/93
[2019-11-16 01:03] VITALS: BP 160/90
[2019-11-16] MEDS: NS 1,000 ML IV SCH (03:36)
[2019-11-16] MEDS: ceFAZolin SOD 1 GM in D5W MINI-BAG PLUS 50 ML IV SCH (03:37)
[2019-11-16] MEDS: PERCOCET 5MG/325MG TAB PO PRN ×2 (03:39→15:09)
[2019-11-16 04:36] VITALS: O2SAT 98
[2019-11-16] MEDS: HEPARIN SOD (PORCINE) 5000 UNITS/ML VIAL SC SCH ×2 (05:29→14:00)
[2019-11-16 06:22] VITALS: BP 156/91
[2019-11-16 07:04] LABS: HEMATOCRIT 37.4 % (42.0-52.0); HEMOGLOBIN 12.2 g/dl (13.5-17.5); MEAN CORPUSCULAR HEMOGLOBIN 28.8 pg (27.0-33.0); MEAN CORPUSCULAR HGB CONC 32.6 g/dl (32.0-36.5); MEAN CORPUSCULAR VOLUME 88.4 fl (80.0-96.0); PLATELET COUNT, AUTOMATED 271 10^3/uL (150-450); RED BLOOD COUNT 4.23 10^6/uL (4.30-6.10); WHITE BLOOD COUNT 9.1 10^3/uL (4.0-10.0)
[2019-11-16 07:18] LABS: BLOOD UREA NITROGEN 12 MG/DL (7-18); CALCIUM LEVEL 8.4 MG/DL (8.8-10.2); CARBON DIOXIDE LEVEL 27 MEQ/L (21-32); CHLORIDE LEVEL 105 MEQ/L (98-107); CREATININE FOR GFR 0.77 MG/DL (0.70-1.30); GLOMERULAR FILTRATION RATE > 60.0 (>42); GLUCOSE, FASTING 100 MG/DL (70-100); POTASSIUM SERUM 4.1 MEQ/L (3.5-5.1); SODIUM LEVEL 139 MEQ/L (136-145)
[2019-11-16] MEDS: SYMBICORT 160/4.5MCG INHALER 6GM INH SCH (07:33)
--- NOTE | 2019-11-16 07:41 | ECGEPIP ---
[facility] Test Date: 2019-11-15 Pat Name: JULEE FRAGA Department: Room: - Gender: Male Vp Revenue Cycle: : 1945 Requested By: Ortiz Buckner Order Number: [id number] Reading MD: Diallo James Measurements Intervals [place] Rate: 85 P: 87 TX: 193 QRS: 65 QRSD: 156 T: 17 QT: 405 QTc: 483 Interpretive Statements SINUS RHYTHM RIGHT BUNDLE BRANCH BLOCK Nonspecific ST-T wave abnormalities Similar to tracing done 01-17-19 Electronically Signed on 11-16-2019 7:41:08 EST by Diallo James
[2019-11-16] MEDS ORDERED: TIOTROPIUM INHALER/CAPSULE (SPIRIVA) INH SCH (08:00)
[2019-11-16 08:16] VITALS: BP 156/91
[2019-11-16] MEDS: amLODIPine 5 MG TAB PO SCH (08:16)
[2019-11-16] MEDS: DOCUSATE SODIUM 100 MG CAP PO SCH (08:16)
[2019-11-16] MEDS ORDERED: FERROUS SULFATE 325MG TAB PO SCH (09:00)
--- NOTE | 2019-11-16 09:32 | IPNPDOC ---
Subjective Review oF Systems Chief Complaint The patient is a 74-year-old male admitted with a reason for visit of Prostate Cancer. Events since Last Encounter No acute events o/n. Good pain control. No n/v. No f/c/ns. Objective Physical Examination General Exam: Alert, Cooperative, No Acute Distress ABDOMEN EXAM: Soft, Tenderness (minimal), Other (incisions clean/dry/intact; JUAN JOSE draining serosanguinous fluid) Skin Exam: Nl turgor and temperature Neuro Exam: Normal Speech Psych Exam: Mental status NL, Mood NL Other physical findings catheter draining pink urine Vital Signs/I&O Vital Signs Date Time Temp Pulse Resp B/P (MAP) Pulse Ox O2 Delivery O2 Flow Rate FiO2 11/16/19 08:16 89 156/91 11/16/19 06:22 98.6 16 98 Nasal Cannula 2.0 11/16/19 04:36 28 I&O- Last 24 Hours up to 6 AM 11/16/19 06:00 Intake Total 4538 ml Output Total 2420 ml Balance 2118 ml Laboratory Data Labs 24H Laboratory Tests 2 11/15/19 18:12: Nucleated Red Blood Cells % (auto) 0.0, Anion Gap 6L, Glomerular Filtration Rate > 60.0, Calcium Level 8.3L 11/16/19 06:26: Nucleated Red Blood Cells % (auto) 0.0, Anion Gap 7L, Glomerular Filtration Rate > 60.0, Calcium Level 8.4L CBC/BMP Laboratory Tests 11/15/19 18:12 11/16/19 06:26 Assessment/Plan Date Seen The patient was seen on 11/16/19. Patient Summary This is a 74 y/o M POD1 s/p RALP. He is doing well. Hb stable at 12.2. Cr 0.8. Good UOP. Minimal JUAN JOSE output. Plan/VTE VTE Prophylaxis Ordered?: Yes VTE Exclusion Mechanical Proph: N/A:VTE Prophy Ordered VTE Exclusion Pharmacological: N/A:VTE Prophy Ordered Plan/Urinary Catheter Urinary Catheter: Other Catheter: (catheter will need to stay in for at least 7 days for healing of vesicourethral anastomosis) Plan - d/c IVF - percocet prn pain - continue home meds - ambulate - SCDs when in bed - SQH - incentive spirometry - strict I/Os - advance diet as tolerated - possible discharge home later today (will go home w/ catheter; plan to d/c JUAN JOSE drain prior to discharge) CARMELINA ALBARRAN MD Nov 16, 2019 09:32
[2019-11-16 14:00] VITALS: BP 110/54
--- NOTE | 2019-11-16 19:38 | DSES ---
DATE OF ADMISSION: 11/15/2019 DATE OF DISCHARGE: 11/16/2019 ADMISSION DIAGNOSES: 1. Prostate cancer. 2. Urinary retention. DISCHARGE DIAGNOSES: 1. Prostate cancer. 2. Urinary retention. ADMITTING PHYSICIAN: Kareen Walls. DISCHARGING PHYSICIAN: Kareen Walls. PROCEDURES PERFORMED: Robotic-assisted laparoscopic radical prostatectomy on 11/15/2019. HISTORY OF PRESENT ILLNESS: This is a 74-year-old male with prostate cancer and urinary retention. He was brought to the operating room for the above-listed procedure and admitted to the hospital postoperatively. HOSPITAL COURSE: The patient was admitted to the hospital after undergoing the above-listed procedure on 11/15/2019. His postoperative course was unremarkable. On postoperative day #1, all of his labs were within acceptable limits. He had excellent urine output from his catheter. He had minimal output from his Anil-Solitario drain. Since he had minimal output from his Ainl-Solitario drain, it was removed on postoperative day #1. He was ambulating well without difficulty. His pain was well-controlled with oral pain medication. He was tolerating a regular diet. Since he was doing well, he was deemed ready for discharge home on postoperative day 31. He was discharged home on postoperative day #[address] with his catheter in place with the plan for him to follow up in clinic in approximately 7-10 days for catheter removal and to discuss pathology results.
== END 2019-11-16 15:20 | disposition home or self-care (01) | DRG 708 ==
LOC: EDSTATUS 07:30 → M SDC 07:57 → M MS5PR 11:58 → M SDC 19:43 → M MS5PR 19:43 → UNDOADMIN 11-16 14:42 → UNDODISIN 11-16 15:20
PROVIDERS: ADMIT Urology; ATTEND Urology
PROC: 0TQC4ZZ Repair Bladder Neck, Percutaneous Endoscopic Approach (ICD-10-PCS; 2019-11-15)
PROC: 8E0W4CZ Robotic Assisted Procedure of Trunk Region, Percutaneous Endoscopic Approach (ICD-10-PCS; 2019-11-15)
PROC: 0VT04ZZ Resection of Prostate, Percutaneous Endoscopic Approach (ICD-10-PCS; principal; 2019-11-15 10:10)
DX: C61 Malignant neoplasm of prostate (principal); R33.9 Retention of urine, unspecified; Z79.51 Long term (current) use of inhaled steroids; Z79.899 Other long term (current) drug therapy; I10 Essential (primary) hypertension; F17.210 Nicotine dependence, cigarettes, uncomplicated; J44.9 Chronic obstructive pulmonary disease, unspecified; M06.9 Rheumatoid arthritis, unspecified; Z98.41 Cataract extraction status, right eye; Z98.42 Cataract extraction status, left eye

== ENCOUNTER → 2019-12-31 | Outpatient (CLI) | payer OTHER ==
[~2019-12-31] MED LIST changes: -LR 1,000 ML IV ONE; -ceFAZolin SOD 2 GM in IV 1 EA IV ONE
== END ==
LOC: M LAB 08:51
PROVIDERS: ATTEND Urology
DX: C61 Malignant neoplasm of prostate (principal)

== ENCOUNTER 2022-07-28 08:26 | Observation (INO) | payer OTHER ==
[~2022-07-28] VITALS: Ht 182.9 cm; Wt 85.6 kg
[~2022-07-28 08:26] MED LIST changes: -AMLO10TA5 PO; +AMLO1TAB25 PO; -IBUP100C PO; +IBUP100C2 PO; -LISI40TA PO; +LISI40TA4 PO
[2022-07-28] MEDS ORDERED: MELO15TA28 PO (08:36)
[2022-07-28] MEDS ORDERED: NICOTINE 21MG/24HR 1 EA TRANSDERMAL TD SCH (09:00)
[2022-07-28 09:27] LABS: BASO % 0.3 % (0.0-1.0); EOS # 0.1 10^3/uL (0.0-0.5); EOS % 0.9 % (0.0-3.0); HEMATOCRIT 48.8 % (42.0-52.0); HEMOGLOBIN 16.5 g/dl (13.5-17.5); LYMPH # 0.7 10^3/uL (1.5-5.0); LYMPH % 10.1 % (24.0-44.0); MEAN CORPUSCULAR HEMOGLOBIN 29.9 pg (27.0-33.0); MEAN CORPUSCULAR HGB CONC 33.8 g/dl (32.0-36.5); MEAN CORPUSCULAR VOLUME 88.6 fl (80.0-96.0); MONO # 0.7 10^3/uL (0.0-0.8); MONO % 9.7 % (2.0-8.0); NEUTROPHILS # 5.5 10^3/uL (1.5-8.5); NEUTROPHILS % 78.6 % (36.0-66.0); PLATELET COUNT, AUTOMATED 286 10^3/uL (150-450); RED BLOOD COUNT 5.51 10^6/uL (4.30-6.10)
[2022-07-28 09:35] LABS: RSV AMPLIFICATION NEGATIVE (NEGATIVE)
[2022-07-28 09:41] LABS: INR 1.01; PROTHROMBIN TIME 13.7 SECONDS (12.7-14.5)
[2022-07-28 09:53] LABS: BLOOD UREA NITROGEN 12 MG/DL (7-18); CALCIUM LEVEL 9.2 MG/DL (8.8-10.2); CARBON DIOXIDE LEVEL 28 MEQ/L (21-32); CHLORIDE LEVEL 98 MEQ/L (98-107); CREATININE FOR GFR 0.87 MG/DL (0.70-1.30); GLOMERULAR FILTRATION RATE > 60.0 (>42); GLUCOSE, FASTING 101 MG/DL (70-100); NT-PRO BNP 710 PG/ML (<450); POTASSIUM SERUM 4.4 MEQ/L (3.5-5.1); SODIUM LEVEL 132 MEQ/L (136-145)
[2022-07-28] MEDS ORDERED: IPRATROPIUM 0.5MG/ALBUTEROL 2.5MG INH SOL UD 3ML (DUONEB) NEB ONE (10:35)
[2022-07-28] MEDS ORDERED: ALBUTEROL SULFATE 2.5 MG/0.5 ML INH NEB SOLN INH ONE (10:35)
[2022-07-28] MEDS ORDERED: dexameTHASONE 20MG/5ML VIAL (J1100 PER 1MG) IV ONE (10:35)
[2022-07-28] MEDS ORDERED: ISOVUE-370 76% 100ML VIAL As Ordered ONE (10:43)
[2022-07-28] MEDS ORDERED: IPRATROPIUM 0.5MG/ALBUTEROL 2.5MG INH SOL UD 3ML (DUONEB) NEB SCH (14:00)
[2022-07-28] MEDS ORDERED: LIDOCAINE 1% MDV 20ML VIAL As Ordered ONE (14:04)
[2022-07-28 14:53] LABS: SOURCE, BODY FLUID pH PLEURAL
[2022-07-28 14:54] LABS: LDH LACTATE DEHYDROGENASE 138 U/L (87-241)
[2022-07-28 15:00] LABS: APPEARANCE, BODY FLUID HAZY (CLEAR); PLEURAL FL COLOR YELLOW (COLORLESS); SOURCE, BODY FLUID PLEURAL
[2022-07-28 15:14] LABS: AMYLASE, BODY FLUID 45 U/L (NOT ESTABLISHED); CHOLESTEROL, BODY FLUID 57 MG/DL (NOT ESTABLISHED); LDH, BODY FLUID 109 U/L (NOT ESTABLISHED); SOURCE, BODY FLUID ALBUMIN PLEURAL; SOURCE, BODY FLUID AMYLASE PLEURAL; SOURCE, BODY FLUID CHOL PLEURAL; SOURCE, BODY FLUID GLUCOSE PLEURAL; SOURCE, BODY FLUID LDH PLEURAL; SOURCE, BODY FLUID TOT PROTEIN PLEURAL; SOURCE, BODY FLUID TRIG PLEURAL; TOTAL PROTEIN, BODY FLUID 5.2 G/DL (NOT ESTABLISHED); TRIGLYCERIDE, BODY FLUID 24 MG/DL (NOT ESTABLISHED)
[2022-07-28] MEDS ORDERED: IPRAINH INH (16:05)
[2022-07-28] MEDS ORDERED: PRED50TA PO (16:05)
[2022-07-28] MEDS ORDERED: IPRA0.00 NEB (16:05)
[2022-07-28] MEDS ORDERED: AZIT-12 PO (16:13)
[2022-07-28 16:18] VITALS: BP 143/79
[2022-07-28 16:51] LABS: ALBUMIN 3.8 GM/DL (3.2-5.2); BILIRUBIN,DIRECT 0.4 MG/DL (0.0-0.2); BILIRUBIN,TOTAL 1.4 MG/DL (0.2-1.0); TOTAL PROTEIN 7.5 GM/DL (6.4-8.2)
[2022-07-28] MEDS ORDERED: SYMBICORT 160/4.5MCG INHALER 6GM INH SCH (20:00)
[2022-07-28] MEDS ORDERED: methylPREDNISolone 125MG 2ML VIAL IV SCH (20:00)
[2022-07-29] MEDS ORDERED: ENOXAPARIN 40MG/0.4ML SYRINGE (J1650 PER 10MG) SC SCH (09:00)
== END 2022-07-28 16:29 | disposition left against medical advice (07) ==
LOC: M ED 08:26 → M ED INP 13:50
PROVIDERS: ADMIT Student in an Organized Health Care Education/Training Program; ATTEND Student in an Organized Health Care Education/Training Program
DX: C34.91 Malignant neoplasm of unspecified part of right bronchus or lung (principal); J90 Pleural effusion, not elsewhere classified; R91.8 Other nonspecific abnormal finding of lung field; E87.2 Acidosis; I10 Essential (primary) hypertension; H35.30 Unspecified macular degeneration; Z85.46 Personal history of malignant neoplasm of prostate; Z90.79 Acquired absence of other genital organ(s); F17.210 Nicotine dependence, cigarettes, uncomplicated; R06.02 Shortness of breath; R05.9 Cough, unspecified; M19.90 Unspecified osteoarthritis, unspecified site; Z79.899 Other long term (current) drug therapy; Z79.51 Long term (current) use of inhaled steroids; Z79.52 Long term (current) use of systemic steroids
CPT/HCPCS: 32554; 36415; 71045; 71046; 71275; 80048; 80076; 82042; 82150; 82465; 82945; 83605; 83615; 83880; 83986; 84157; 84478; 85025; 85610; 87040; 87070; 87075; 87102; 87116; 87205; 87206; 87631; 88108; 88305; 88313; 88341; 88342; 89051; 93041; 94640; 94760; 96374; 99284; G0378; J1100; Q9967

== ENCOUNTER 2022-11-28 09:50 | Emergency (ER) | payer OTHER ==
[~2022-11-28] VITALS: Ht 182.9 cm; Wt 78.9 kg
[~2022-11-28 09:50] MED LIST changes: +AZIT-12 PO; +DIPH-435 PO; -DIPH25CA32 PO; +IPRA0.00 NEB; +IPRAINH INH; +MELO15TA28 PO; +PRED50TA PO
[2022-11-28 10:41] LABS: BASO % 0.4 % (0.0-1.0); EOS % 0.4 % (0.0-3.0); HEMATOCRIT 44.2 % (42.0-52.0); HEMOGLOBIN 15.2 g/dl (13.5-17.5); LYMPH # 0.5 10^3/uL (1.5-5.0); LYMPH % 7.7 % (24.0-44.0); MEAN CORPUSCULAR HEMOGLOBIN 29.4 pg (27.0-33.0); MEAN CORPUSCULAR HGB CONC 34.4 g/dl (32.0-36.5); MEAN CORPUSCULAR VOLUME 85.5 fl (80.0-96.0); MONO # 0.4 10^3/uL (0.0-0.8); MONO % 6.5 % (2.0-8.0); NEUTROPHILS # 5.7 10^3/uL (1.5-8.5); NEUTROPHILS % 84.6 % (36.0-66.0); PLATELET COUNT, AUTOMATED 319 10^3/uL (150-450); RED BLOOD COUNT 5.17 10^6/uL (4.30-6.10); WHITE BLOOD COUNT 6.7 10^3/uL (4.0-10.0)
[2022-11-28] MEDS ORDERED: VENL37.598 PO (10:55)
[2022-11-28 11:14] LABS: ALBUMIN 3.7 G/DL (3.2-5.2); BILIRUBIN,DIRECT 0.3 MG/DL (<0.4); BILIRUBIN,TOTAL 0.8 MG/DL (0.3-1.2); TOTAL PROTEIN 7.2 G/DL (5.7-8.2)
[2022-11-28] MEDS ORDERED: ISOVUE-370 76% 100ML VIAL As Ordered ONE (11:29)
[2022-11-28] MEDS ORDERED: ALBUTEROL 90 MCG/ACT 8GM HFA INHALER INH ONE (12:05)
[2022-11-28] MEDS ORDERED: NS 500 ML IV ONE (13:25)
[2022-11-28 14:45] VITALS: BP 128/63
== END 2022-11-28 14:53 | disposition home or self-care (01) ==
LOC: M ED 09:50
DX: K40.30 Unilateral inguinal hernia, with obstruction, without gangrene, not specified as recurrent (principal); N28.1 Cyst of kidney, acquired; I70.0 Atherosclerosis of aorta; J98.19 Other pulmonary collapse; J90 Pleural effusion, not elsewhere classified; Z79.899 Other long term (current) drug therapy; Z85.46 Personal history of malignant neoplasm of prostate; F17.200 Nicotine dependence, unspecified, uncomplicated
CPT/HCPCS: 36415; 74177; 76870; 80047; 80076; 83605; 83690; 85025; 93976; 94640; 96360; 99284; Q9967

== ENCOUNTER → 2022-12-20 | Outpatient (CLI) | payer OTHER, MEDICARE ==
[~2022-12-20] MED LIST changes: +ALBU8.5H; +FLUT1BLS2 IH; +VENL37.598 PO
[2022-12-20 13:43] LABS: INR 0.96; PARTIAL THROMBOPLASTIN TIME 28.1 SECONDS (24.8-34.2)
[2022-12-20 14:12] LABS: PLATELET COUNT, AUTOMATED 350 10^3/uL (150-450)
== END ==
LOC: M PLALAB 12:02
PROVIDERS: ATTEND Internal Medicine Pulmonary Disease
DX: Z01.812 Encounter for preprocedural laboratory examination (principal)

== ENCOUNTER → 2022-12-20 | Outpatient (CLI) | payer MEDICARE, OTHER | LOC: M LABSMTC 11:40 | PROVIDERS: ATTEND Anesthesiology | DX: Z01.818 Encounter for other preprocedural examination (principal) ==

== ENCOUNTER 2022-12-22 13:05 | Day surgery (SDC) | payer MEDICARE ==
[~2022-12-22] VITALS: Ht 182.9 cm; Wt 78.0 kg
[~2022-12-22 13:05] MED LIST changes: +LIDOCAINE 2% 100MG/5ML SDV (FOR ANES.) As Ordered ONE; +propofoL 200 MG/20 ML VIAL As Ordered ONE
[2022-12-22] MEDS ORDERED: MIDAZOLAM INJ 2MG/2ML VIAL As Ordered ONE (14:12)
[2022-12-22] MEDS ORDERED: fentaNYL 100 MCG/2 ML INJECTION As Ordered ONE (14:13)
[2022-12-22] MEDS ORDERED: LIDOCAINE 1% MDV 20ML VIAL As Ordered ONE (14:19)
[2022-12-22 15:33] VITALS: BP 142/70
== END 2022-12-22 15:35 | disposition home or self-care (01) ==
LOC: M OPP 13:05
PROVIDERS: ATTEND Internal Medicine Pulmonary Disease
DX: C34.90 Malignant neoplasm of unspecified part of unspecified bronchus or lung (principal); J91.0 Malignant pleural effusion; D72.828 Other elevated white blood cell count
CPT/HCPCS: 32556; 71045; 88108; 88305; 88313; A7048; J2250; J3010

== ENCOUNTER → 2023-01-05 | Outpatient (REF) | payer MEDICAID, MEDICARE, OTHER ==
[~2023-01-05] MED LIST changes: -LIDOCAINE 2% 100MG/5ML SDV (FOR ANES.) As Ordered ONE; +TRAZ-252; -propofoL 200 MG/20 ML VIAL As Ordered ONE
== END ==
LOC: M LAB REF 11:05
PROVIDERS: ATTEND Internal Medicine Pulmonary Disease
DX: J44.9 Chronic obstructive pulmonary disease, unspecified (principal); J91.0 Malignant pleural effusion

== ENCOUNTER → 2023-01-12 | Outpatient (CLI) | payer MEDICARE, MEDICAID ==
[~2023-01-12] MED LIST changes: -TRAZ-252; +TRAZ-252 PO
== END ==
LOC: M PLAIMG 13:44
PROVIDERS: ATTEND Internal Medicine Pulmonary Disease
DX: C34.31 Malignant neoplasm of lower lobe, right bronchus or lung (principal); J91.0 Malignant pleural effusion; J94.8 Other specified pleural conditions; I25.10 Atherosclerotic heart disease of native coronary artery without angina pectoris

== ENCOUNTER → 2023-01-13 | Outpatient (CLI) | payer MEDICARE, MEDICAID ==
[2023-01-13 17:00] LABS: PLATELET COUNT, AUTOMATED 342 10^3/uL (150-450)
[2023-01-13 17:12] LABS: INR 0.98; PROTHROMBIN TIME 13.2 SECONDS (12.5-14.5)
[2023-01-13 17:13] LABS: PARTIAL THROMBOPLASTIN TIME 29.4 SECONDS (24.8-34.2)
== END ==
LOC: M CARPUL 15:10
PROVIDERS: ATTEND Internal Medicine Pulmonary Disease
DX: Z01.810 Encounter for preprocedural cardiovascular examination (principal); R91.8 Other nonspecific abnormal finding of lung field; I45.10 Unspecified right bundle-branch block; F17.218 Nicotine dependence, cigarettes, with other nicotine-induced disorders; C34.90 Malignant neoplasm of unspecified part of unspecified bronchus or lung; J91.0 Malignant pleural effusion; J44.9 Chronic obstructive pulmonary disease, unspecified; Z79.51 Long term (current) use of inhaled steroids; Z79.1 Long term (current) use of non-steroidal anti-inflammatories (NSAID); Z79.899 Other long term (current) drug therapy
CPT/HCPCS: 36415; 85027; 85610; 85730; 93005; 93306; 99406; G0463; G2212

== ENCOUNTER → 2023-01-14 | Outpatient (REF) | payer MEDICARE, MEDICAID ==
[~2023-01-14] MED LIST changes: -ALBU8.5H; +ALBU8.5H INH; +FLUT1BLS5 INH; +INCR1INH INH
== END ==
LOC: M LAB REF 15:40
PROVIDERS: ATTEND Internal Medicine Pulmonary Disease
DX: C34.90 Malignant neoplasm of unspecified part of unspecified bronchus or lung (principal); J91.0 Malignant pleural effusion

== ENCOUNTER → 2023-01-14 | Outpatient (CLI) | payer MEDICARE, MEDICAID | LOC: M LABSMTC 10:43 | PROVIDERS: ATTEND Anesthesiology | DX: Z01.818 Encounter for other preprocedural examination (principal); Z11.52 Encounter for screening for COVID-19 ==

== ENCOUNTER 2023-01-19 08:01 | Observation (INO) | payer MEDICARE, MEDICAID ==
[~2023-01-19] VITALS: Ht 185.4 cm; Wt 75.5 kg
[~2023-01-19 08:01] MED LIST changes: -FLUT1BLS5 INH; -INCR1INH INH; +LIDOCAINE 1% MDV 20ML VIAL SQ PRN; +LR 1,000 ML IV ONE
[2023-01-19] MEDS: amLODIPine 5 MG TAB PO SCH ×2 (09:00→20:00)
[2023-01-19] MEDS ORDERED: ROCURONIUM BROMIDE 50MG/5ML VIAL As Ordered ONE (09:32)
[2023-01-19] MEDS ORDERED: ONDANSETRON 4MG 2ML VIAL As Ordered ONE (09:32)
[2023-01-19] MEDS ORDERED: propofoL 200 MG/20 ML VIAL As Ordered ONE (09:32)
[2023-01-19] MEDS ORDERED: fentaNYL 100 MCG/2 ML INJECTION As Ordered ONE (09:33)
[2023-01-19] MEDS ORDERED: MIDAZOLAM INJ 2MG/2ML VIAL As Ordered ONE (09:33)
[2023-01-19] MEDS ORDERED: LIDOCAINE 2% 100MG/5ML SDV (FOR ANES.) As Ordered ONE (09:37)
[2023-01-19] MEDS ORDERED: EPINEPHrine 1MG/10ML SYRINGE 1.5IN As Ordered ONE (10:03)
[2023-01-19] MEDS ORDERED: CETACAINE SPRAY 5GM As Ordered ONE (10:03)
[2023-01-19] MEDS ORDERED: LIDOCAINE PRES-FREE 2% 10ML AMP INH ONE (10:15)
[2023-01-19] MEDS ORDERED: ALBUTEROL SULFATE 2.5MG/0.5ML INH NEB SOLN INH ONE (10:15)
[2023-01-19] MEDS ORDERED: PHENYLephrine 500MCG 5ML (100MCG/ML) SYRINGE As Ordered ONE (10:36)
[2023-01-19] MEDS ORDERED: SUGAMMADEX SODIUM 500 MG/5 ML VIAL (BRIDION) As Ordered ONE (10:49)
[2023-01-19] MEDS ORDERED: ONDANSETRON 4MG 2ML VIAL IV PRN (11:10)
[2023-01-19] MEDS ORDERED: oxyCODONE 5MG TAB PO PRN (11:10)
[2023-01-19] MEDS ORDERED: MORPHINE 2 MG/ML 1ML VIAL IV PRN (11:10)
[2023-01-19] MEDS ORDERED: fentaNYL 100 MCG/2 ML INJECTION IV PRN (11:10)
[2023-01-19] MEDS ORDERED: IPRATROPIUM 0.5MG/ALBUTEROL 2.5MG INH SOL UD 3ML (DUONEB) As Ordered ONE (11:15)
[2023-01-19] MEDS ORDERED: IPRATROPIUM 0.5MG/ALBUTEROL 2.5MG INH SOL UD 3ML (DUONEB) NEB ONE (11:30)
[2023-01-19] MEDS ORDERED: ALTEPLASE 2MG/2ML VIAL XX ONE (11:55)
[2023-01-19 12:10] VITALS: BP 118/65
[2023-01-19] MEDS ORDERED: ALBUTEROL 90 MCG/ACT 8GM HFA INHALER INH PRN (14:05)
[2023-01-19] MEDS ORDERED: INCR1INH INH (14:48)
[2023-01-19] MEDS ORDERED: FLUT1BLS5 INH (14:48)
[2023-01-19] MEDS ORDERED: HOME MED LIST COMPLETE! XX SCH (14:50)
[2023-01-19 16:00] VITALS: BP 119/73
[2023-01-19] MEDS: TIOTROPIUM INHALER/CAPSULE (SPIRIVA) INH SCH (17:16)
[2023-01-19] MEDS: SYMBICORT 160/4.5MCG INHALER 6GM INH SCH ×2 (17:16→19:08)
[2023-01-19] MEDS ORDERED: ACETAMINOPHEN TAB 650MG DOSE (2X325MG) PO PRN (18:05)
[2023-01-19 20:00] VITALS: BP 116/72
[2023-01-19 20:50] VITALS: BP 123/73
[2023-01-19] MEDS ORDERED: traZODone 50 MG TAB PO SCH (21:00)
[2023-01-19 23:50] VITALS: BP 100/56
[2023-01-20 03:51] VITALS: BP 126/69
[2023-01-20] MEDS ORDERED: ONDANSETRON 4MG 2ML VIAL IV ONE (05:00)
[2023-01-20 05:58] LABS: HEMATOCRIT 38.7 % (42.0-52.0); HEMOGLOBIN 12.7 g/dl (13.5-17.5); MEAN CORPUSCULAR HEMOGLOBIN 28.3 pg (27.0-33.0); MEAN CORPUSCULAR HGB CONC 32.8 g/dl (32.0-36.5); MEAN CORPUSCULAR VOLUME 86.4 fl (80.0-96.0); PLATELET COUNT, AUTOMATED 353 10^3/uL (150-450); RED BLOOD COUNT 4.48 10^6/uL (4.30-6.10); WHITE BLOOD COUNT 10.1 10^3/uL (4.0-10.0)
[2023-01-20 06:20] LABS: ALBUMIN 2.5 G/DL (3.2-5.2); ALKALINE PHOSPHATASE 77 U/L (46-116); ALT/SGPT 14 U/L (7.0-40); AST/SGOT 12 U/L (<34); BILIRUBIN,TOTAL 0.3 MG/DL (0.3-1.2); BLOOD UREA NITROGEN 15 MG/DL (9-23); CALCIUM LEVEL 8.7 MG/DL (8.3-10.6); CARBON DIOXIDE LEVEL 28 MMOL/L (20-31); CHLORIDE LEVEL 106 MMOL/L (98-107); CREATININE FOR GFR 0.46 MG/DL (0.70-1.30); GLOMERULAR FILTRATION RATE > 60.0 (>42); GLUCOSE, FASTING 117 MG/DL (74-106); POTASSIUM SERUM 4.5 MMOL/L (3.5-5.1); SODIUM LEVEL 138 MMOL/L (136-145); TOTAL PROTEIN 5.4 G/DL (5.7-8.2)
[2023-01-20 08:00] VITALS: BP 135/67
[2023-01-20] MEDS: TIOTROPIUM INHALER/CAPSULE (SPIRIVA) INH SCH (08:08)
[2023-01-20] MEDS: SYMBICORT 160/4.5MCG INHALER 6GM INH SCH (08:08)
[2023-01-20] MEDS: amLODIPine 5 MG TAB PO SCH (08:45)
== END 2023-01-20 12:37 | disposition home health service (06) ==
LOC: M SDC 08:01 → M PCU 12:02 → INTOOBSV 12:02
PROVIDERS: ADMIT Internal Medicine Nephrology; ATTEND Internal Medicine
DX: C34.91 Malignant neoplasm of unspecified part of right bronchus or lung (principal); J98.09 Other diseases of bronchus, not elsewhere classified; J90 Pleural effusion, not elsewhere classified; J98.11 Atelectasis; I10 Essential (primary) hypertension; J44.9 Chronic obstructive pulmonary disease, unspecified; C61 Malignant neoplasm of prostate; H35.30 Unspecified macular degeneration; Z79.899 Other long term (current) drug therapy; Z79.51 Long term (current) use of inhaled steroids; F17.210 Nicotine dependence, cigarettes, uncomplicated
CPT/HCPCS: 31622; 31654; 32561; 36415; 71045; 71046; 80053; 85027; 88108; 88305; 88313; 94640; 94664; 96374; 97161; G0378; J0171; J1100; J2250; J2370; J2405; J2997; J3010

== ENCOUNTER → 2023-02-14 | Outpatient (CLI) | payer MEDICARE, MEDICAID ==
[~2023-02-14] MED LIST changes: +FLUT1BLS5 INH; +INCR1INH INH; -LIDOCAINE 1% MDV 20ML VIAL SQ PRN; -LR 1,000 ML IV ONE
== END ==
LOC: M PLARAD 09:41
PROVIDERS: ATTEND Internal Medicine Hematology & Oncology
DX: C34.11 Malignant neoplasm of upper lobe, right bronchus or lung (principal); R91.8 Other nonspecific abnormal finding of lung field
CPT/HCPCS: 78815; A9552

== ENCOUNTER → 2023-04-05 | Outpatient (CLI) | payer MEDICARE, MEDICAID | LOC: M RAD 10:25 | PROVIDERS: ATTEND Internal Medicine Pulmonary Disease | DX: R91.1 Solitary pulmonary nodule (principal); J91.0 Malignant pleural effusion ==

== ENCOUNTER 2023-06-14 23:31 | Inpatient (IN) | payer MEDICARE, MEDICAID ==
[~2023-06-14] VITALS: Ht 182.9 cm; Wt 66.0 kg
[2023-06-15] VITALS (11 sets, daily range): BP systolic 97–125; BP diastolic 56–81; TEMP 97.1–98.1; O2SAT 88–96
[2023-06-15] MEDS: MORPHINE 4 MG/ML 1ML VIAL IV ONE ×2 (00:10→01:10)
[2023-06-15] MEDS ORDERED: AMLO1TAB25 PO (02:06)
[2023-06-15] MEDS ORDERED: MELO15TA28 PO (02:06)
[2023-06-15] MEDS ORDERED: REFR0.5D8 OU (02:06)
[2023-06-15] MEDS ORDERED: HOME MED LIST COMPLETE! XX SCH (02:10)
[2023-06-15 02:18] LABS: BASO % 0.2 % (0.0-1.0); EOS % 0.3 % (0.0-3.0); HEMATOCRIT 34.4 % (42.0-52.0); LYMPH # 0.3 10^3/uL (1.5-5.0); LYMPH % 2.8 % (24.0-44.0); MEAN CORPUSCULAR HEMOGLOBIN 25.8 pg (27.0-33.0); MEAN CORPUSCULAR VOLUME 80.8 fl (80.0-96.0); MONO # 0.6 10^3/uL (0.0-0.8); MONO % 5.1 % (2.0-8.0); NEUTROPHILS # 10.8 10^3/uL (1.5-8.5); NEUTROPHILS % 91.3 % (36.0-66.0); PLATELET COUNT, AUTOMATED 404 10^3/uL (150-450); RED BLOOD COUNT 4.26 10^6/uL (4.30-6.10); WHITE BLOOD COUNT 11.9 10^3/uL (4.0-10.0)
[2023-06-15 02:43] LABS: BLOOD UREA NITROGEN 11 MG/DL (9-23); CALCIUM LEVEL 7.5 MG/DL (8.3-10.6); CARBON DIOXIDE LEVEL 25 MMOL/L (20-31); CHLORIDE LEVEL 106 MMOL/L (98-107); CREATININE FOR GFR 0.49 MG/DL (0.70-1.30); GLOMERULAR FILTRATION RATE > 60.0 (>42); GLUCOSE, FASTING 106 MG/DL (74-106); MAGNESIUM LEVEL 1.8 MG/DL (1.8-2.4); POTASSIUM SERUM 4.2 MMOL/L (3.5-5.1); SODIUM LEVEL 137 MMOL/L (136-145)
[2023-06-15] MEDS ORDERED: MOM 30ML SUSPENSION UDC PO PRN (03:05)
[2023-06-15] MEDS ORDERED: MORPHINE 2 MG/ML 1ML VIAL IV ONE (03:05)
[2023-06-15] MEDS: MORPHINE 2 MG/ML 1ML VIAL IV PRN ×2 (07:04→12:22)
[2023-06-15] MEDS: HEPARIN SOD (PORCINE) 5000UNITS/ML 1ML VIAL/SYRINGE SC SCH (07:04)
[2023-06-15] MEDS: DOCUSATE SODIUM 100MG CAPSULE PO SCH ×2 (08:42→20:37)
[2023-06-15] MEDS: amLODIPine 5 MG TAB PO SCH ×2 (08:42→20:37)
[2023-06-15] MEDS: ALBUTEROL 90 MCG/ACT 8GM HFA INHALER INH PRN (08:53)
[2023-06-15] MEDS ORDERED: VANCOMYCIN 1000MG/20ML VIAL As Ordered ONE (15:29)
[2023-06-15] MEDS ORDERED: TRANEXAMIC ACID 100 MG/ML 10ML VIAL As Ordered ONE (15:29)
[2023-06-15 16:25] LABS: INR 1.1; PROTHROMBIN TIME 13.9 SECONDS (12.5-14.5)
[2023-06-15] MEDS ORDERED: ceFAZolin 2 GM/D5W 50 ML IV BAG As Ordered ONE (16:37)
[2023-06-15] MEDS ORDERED: propofoL 200 MG/20 ML VIAL As Ordered ONE (17:25)
[2023-06-15] MEDS ORDERED: fentaNYL 100 MCG/2 ML INJECTION As Ordered ONE (17:25)
[2023-06-15] MEDS ORDERED: ROCURONIUM BROMIDE 50MG/5ML VIAL As Ordered ONE (17:25)
[2023-06-15] MEDS ORDERED: MIDAZOLAM INJ 2MG/2ML VIAL As Ordered ONE (17:25)
[2023-06-15] MEDS ORDERED: LIDOCAINE 2% 100MG/5ML SDV (FOR ANES.) As Ordered ONE (17:25)
[2023-06-15] MEDS ORDERED: PHENYLephrine 500MCG 5ML (100MCG/ML) SYRINGE As Ordered ONE ×2 (17:25→18:01)
[2023-06-15] MEDS ORDERED: ONDANSETRON 4MG 2ML VIAL As Ordered ONE (17:27)
[2023-06-15] MEDS ORDERED: ACETAMINOPHEN 1000MG 100ML IV BAG As Ordered ONE (17:38)
[2023-06-15] MEDS ORDERED: SUGAMMADEX SODIUM 500 MG/5 ML VIAL (BRIDION) As Ordered ONE (17:43)
[2023-06-15] MEDS ORDERED: KETOROLAC 60MG 2ML VIAL As Ordered ONE (18:35)
[2023-06-15] MEDS ORDERED: fentaNYL 100 MCG/2 ML INJECTION IV PRN (18:40)
[2023-06-15] MEDS ORDERED: HYDROMORPHONE HCL 0.5 MG/ 0.5 ML SYRINGE IV PRN (18:40)
[2023-06-15] MEDS ORDERED: oxyCODONE 5MG TAB PO PRN (18:40)
[2023-06-15] MEDS ORDERED: ONDANSETRON 4MG 2ML VIAL IV PRN (18:40)
[2023-06-15] MEDS ORDERED: LR 1,000 ML IV SCH (18:40)
[2023-06-15] MEDS: ASPIRIN 81MG ENTERIC TABLET PO SCH (20:37)
[2023-06-15] MEDS ORDERED: NS 1,000 ML IV SCH (21:05)
[2023-06-16] VITALS (8 sets, daily range): BP systolic 99–113; BP diastolic 58–67; TEMP 96.8–98.8; O2SAT 92–96
[2023-06-16] MEDS: ceFAZolin SOD 2 GM in IV 1 EA IV SCH ×3 (00:57→17:39)
[2023-06-16] MEDS: MORPHINE 2 MG/ML 1ML VIAL IV PRN ×2 (02:04→05:37)
[2023-06-16 06:15] LABS: HEMATOCRIT 35.5 % (42.0-52.0); HEMOGLOBIN 11.2 g/dl (13.5-17.5); MEAN CORPUSCULAR HEMOGLOBIN 25.9 pg (27.0-33.0); MEAN CORPUSCULAR HGB CONC 31.5 g/dl (32.0-36.5); MEAN CORPUSCULAR VOLUME 82.2 fl (80.0-96.0); PLATELET COUNT, AUTOMATED 399 10^3/uL (150-450); RED BLOOD COUNT 4.32 10^6/uL (4.30-6.10); WHITE BLOOD COUNT 11.4 10^3/uL (4.0-10.0)
[2023-06-16 06:26] LABS: INR 1.14; PROTHROMBIN TIME 14.3 SECONDS (12.5-14.5)
[2023-06-16 06:34] LABS: ALBUMIN 2.5 G/DL (3.2-5.2); ALKALINE PHOSPHATASE 79 U/L (46-116); ALT/SGPT 10 U/L (7.0-40); AST/SGOT 9 U/L (<34); BILIRUBIN,TOTAL 0.5 MG/DL (0.3-1.2); BLOOD UREA NITROGEN 20 MG/DL (9-23); CALCIUM LEVEL 8.9 MG/DL (8.3-10.6); CARBON DIOXIDE LEVEL 22 MMOL/L (20-31); CHLORIDE LEVEL 103 MMOL/L (98-107); CREATININE FOR GFR 0.61 MG/DL (0.70-1.30); GLOMERULAR FILTRATION RATE > 60.0 (>42); GLUCOSE, FASTING 120 MG/DL (74-106); MAGNESIUM LEVEL 2.1 MG/DL (1.8-2.4); PHOSPHORUS LEVEL 4.8 MG/DL (2.4-5.1); POTASSIUM SERUM 4.7 MMOL/L (3.5-5.1); SODIUM LEVEL 136 MMOL/L (136-145); TOTAL PROTEIN 6.1 G/DL (5.7-8.2)
[2023-06-16] MEDS: HEPARIN SOD (PORCINE) 5000UNITS/ML 1ML VIAL/SYRINGE SC SCH ×3 (06:38→20:59)
[2023-06-16] MEDS: ALBUTEROL 90 MCG/ACT 8GM HFA INHALER INH PRN ×2 (06:59→20:39)
[2023-06-16] MEDS: amLODIPine 5 MG TAB PO SCH ×2 (09:00→20:30)
[2023-06-16] MEDS: ASPIRIN 81MG ENTERIC TABLET PO SCH ×2 (09:00→20:36)
[2023-06-16] MEDS: DOCUSATE SODIUM 100MG CAPSULE PO SCH ×2 (09:25→20:36)
[2023-06-16] MEDS ORDERED: ACETAMINOPHEN TAB 650MG DOSE (2X325MG) PO PRN (10:20)
[2023-06-16] MEDS: traMADol 50 MG TAB PO PRN (11:36)
[2023-06-16] MEDS: VENTOLIN INH SCH ×2 (12:03→20:51)
[2023-06-16] MEDS ORDERED: FLUTICASONE SALMETEROL INH SCH (20:00)
[2023-06-17] MEDS: traMADol 50 MG TAB PO PRN (03:59)
[2023-06-17] MEDS: HEPARIN SOD (PORCINE) 5000UNITS/ML 1ML VIAL/SYRINGE SC SCH ×2 (05:03→15:32)
[2023-06-17 05:25] VITALS: BP 111/69; TEMP 98.2; O2SAT 96
[2023-06-17 06:19] LABS: INR 1.02; PROTHROMBIN TIME 13.1 SECONDS (12.5-14.5)
[2023-06-17 06:59] LABS: ALBUMIN 2.6 G/DL (3.2-5.2); ALKALINE PHOSPHATASE 73 U/L (46-116); ALT/SGPT < 9 U/L (7.0-40); AST/SGOT 9 U/L (<34); BILIRUBIN,TOTAL 0.4 MG/DL (0.3-1.2); BLOOD UREA NITROGEN 14 MG/DL (9-23); CARBON DIOXIDE LEVEL 30 MMOL/L (20-31); CHLORIDE LEVEL 104 MMOL/L (98-107); CREATININE FOR GFR 0.52 MG/DL (0.70-1.30); GLOMERULAR FILTRATION RATE > 60.0 (>42); GLUCOSE, FASTING 119 MG/DL (74-106); PHOSPHORUS LEVEL 2.9 MG/DL (2.4-5.1); POTASSIUM SERUM 4.6 MMOL/L (3.5-5.1); SODIUM LEVEL 141 MMOL/L (136-145); TOTAL PROTEIN 6.2 G/DL (5.7-8.2)
[2023-06-17] MEDS: VENTOLIN INH SCH (07:07)
[2023-06-17 08:46] VITALS: BP 115/68
[2023-06-17] MEDS: DOCUSATE SODIUM 100MG CAPSULE PO SCH (08:47)
[2023-06-17] MEDS: amLODIPine 5 MG TAB PO SCH (08:47)
[2023-06-17] MEDS: ASPIRIN 81MG ENTERIC TABLET PO SCH (08:47)
[2023-06-17] MEDS ORDERED: ASPI81TAEC PO (11:30)
[2023-06-17] MEDS ORDERED: TRAM50TA2 PO (11:30)
[2023-06-17] MEDS ORDERED: ACET1TAB55 PO (11:30)
[2023-06-17 14:00] VITALS: BP 116/68; TEMP 97.7; O2SAT 91
== END 2023-06-17 18:16 | disposition home or self-care (01) | DRG 522 ==
LOC: EDBD 23:31 → M ED 23:31 → M ED INP 06-15 03:05 → ENRESERV 06-15 05:36 → M PCU 06-15 05:54 → M MSPAV 06-15 21:50
PROVIDERS: ADMIT Family Medicine; ATTEND Family Medicine
PROC: 0SRS0J9 Replacement of Left Hip Joint, Femoral Surface with Synthetic Substitute, Cemented, Open Approach (ICD-10-PCS; principal; 2023-06-15 16:00)
DX: S72.002A Fracture of unspecified part of neck of left femur, initial encounter for closed fracture (principal); C34.90 Malignant neoplasm of unspecified part of unspecified bronchus or lung; J90 Pleural effusion, not elsewhere classified; J44.9 Chronic obstructive pulmonary disease, unspecified; I10 Essential (primary) hypertension; H35.30 Unspecified macular degeneration; R33.9 Retention of urine, unspecified; K40.90 Unilateral inguinal hernia, without obstruction or gangrene, not specified as recurrent; Z85.46 Personal history of malignant neoplasm of prostate; Z90.49 Acquired absence of other specified parts of digestive tract; F17.210 Nicotine dependence, cigarettes, uncomplicated; Z79.899 Other long term (current) drug therapy; Z20.822 Contact with and (suspected) exposure to COVID-19; Z66 Do not resuscitate; W06.XXXA Fall from bed, initial encounter; Y92.009 Unspecified place in unspecified non-institutional (private) residence as the place of occurrence of the external cause

== ENCOUNTER → 2023-06-28 | Outpatient (CLI) | payer MEDICARE, MEDICAID ==
[~2023-06-28] MED LIST changes: +ACET1TAB55 PO; +ASPI81TAEC PO; +REFR0.5D8 OU; +TRAM50TA2 PO
== END ==
LOC: M SOG 08:17
PROVIDERS: ATTEND Orthopaedic Surgery
DX: Z47.89 Encounter for other orthopedic aftercare (principal)

== ENCOUNTER 2023-08-04 09:45 | Emergency (ER) | payer MEDICARE, MEDICAID ==
[~2023-08-04] VITALS: Ht 182.9 cm; Wt 68.2 kg
[2023-08-04] MEDS ORDERED: MELO15TA28 PO (10:01)
[2023-08-04] MEDS ORDERED: MORP15TA2 PO (12:54)
[2023-08-04 13:04] VITALS: BP 120/76; TEMP 96; O2SAT 98
== END 2023-08-04 13:19 | disposition home or self-care (01) ==
LOC: M ED 09:45
DX: C34.90 Malignant neoplasm of unspecified part of unspecified bronchus or lung (principal); I10 Essential (primary) hypertension; J44.9 Chronic obstructive pulmonary disease, unspecified; Z85.46 Personal history of malignant neoplasm of prostate; F17.210 Nicotine dependence, cigarettes, uncomplicated; Z99.81 Dependence on supplemental oxygen; Z79.899 Other long term (current) drug therapy; Z79.51 Long term (current) use of inhaled steroids

== ENCOUNTER → 2023-08-11 | Outpatient (CLI) | payer MEDICARE, MEDICAID ==
[~2023-08-11] MED LIST changes: +COLA100C5 PO; +DULC10SU2 PR; +MORP15TA2 PO; +SENN-186 PO
== END ==
LOC: M PAL 11:12
PROVIDERS: ATTEND Nurse Practitioner Adult Health
DX: C34.90 Malignant neoplasm of unspecified part of unspecified bronchus or lung (principal); C61 Malignant neoplasm of prostate; F17.210 Nicotine dependence, cigarettes, uncomplicated; J44.9 Chronic obstructive pulmonary disease, unspecified; K59.00 Constipation, unspecified; R29.6 Repeated falls; Z51.5 Encounter for palliative care; Z66 Do not resuscitate; Z79.51 Long term (current) use of inhaled steroids; Z79.818 Long term (current) use of other agents affecting estrogen receptors and estrogen levels; Z79.891 Long term (current) use of opiate analgesic; Z79.899 Other long term (current) drug therapy; Z90.79 Acquired absence of other genital organ(s); Z99.81 Dependence on supplemental oxygen

== ENCOUNTER → 2023-09-01 | Outpatient (CLI) | payer MEDICARE, MEDICAID | LOC: M PAL 11:51 | PROVIDERS: ATTEND Nurse Practitioner Adult Health | DX: C34.91 Malignant neoplasm of unspecified part of right bronchus or lung (principal); C61 Malignant neoplasm of prostate; R06.02 Shortness of breath; F17.210 Nicotine dependence, cigarettes, uncomplicated; J44.9 Chronic obstructive pulmonary disease, unspecified; K59.00 Constipation, unspecified; R29.6 Repeated falls; Z51.5 Encounter for palliative care; Z66 Do not resuscitate; Z79.1 Long term (current) use of non-steroidal anti-inflammatories (NSAID); Z79.51 Long term (current) use of inhaled steroids; Z79.891 Long term (current) use of opiate analgesic; Z79.818 Long term (current) use of other agents affecting estrogen receptors and estrogen levels; Z79.899 Other long term (current) drug therapy; Z80.49 Family history of malignant neoplasm of other genital organs; Z80.51 Family history of malignant neoplasm of kidney; Z80.8 Family history of malignant neoplasm of other organs or systems; Z90.79 Acquired absence of other genital organ(s); Z99.81 Dependence on supplemental oxygen ==

== ENCOUNTER → 2023-10-18 | Outpatient (CLI) | payer MEDICARE, MEDICAID ==
[~2023-10-18] MED LIST changes: +IPRA0.00 INH; +LACT20EL PO
== END ==
LOC: M PAL 15:00
PROVIDERS: ATTEND Nurse Practitioner Adult Health
DX: C34.91 Malignant neoplasm of unspecified part of right bronchus or lung (principal); C61 Malignant neoplasm of prostate; J44.9 Chronic obstructive pulmonary disease, unspecified; R06.02 Shortness of breath; F17.210 Nicotine dependence, cigarettes, uncomplicated; R29.6 Repeated falls; Z51.5 Encounter for palliative care; Z66 Do not resuscitate; Z79.1 Long term (current) use of non-steroidal anti-inflammatories (NSAID); Z79.51 Long term (current) use of inhaled steroids; Z79.891 Long term (current) use of opiate analgesic; Z79.818 Long term (current) use of other agents affecting estrogen receptors and estrogen levels; Z79.899 Other long term (current) drug therapy; Z80.49 Family history of malignant neoplasm of other genital organs; Z80.51 Family history of malignant neoplasm of kidney; Z80.8 Family history of malignant neoplasm of other organs or systems; Z90.79 Acquired absence of other genital organ(s); Z99.81 Dependence on supplemental oxygen

== ENCOUNTER 2023-11-01 18:34 | Observation (INO) | payer MEDICARE, MEDICAID ==
[~2023-11-01] VITALS: Ht 182.9 cm; Wt 56.8 kg
[2023-11-01 19:45] LABS: BASO % 0.1 % (0.0-1.0); EOS % 0.1 % (0.0-3.0); HEMATOCRIT 38.2 % (42.0-52.0); HEMOGLOBIN 11.3 g/dl (13.5-17.5); LYMPH # 0.3 10^3/uL (1.5-5.0); LYMPH % 2.7 % (24.0-44.0); MEAN CORPUSCULAR HEMOGLOBIN 24.4 pg (27.0-33.0); MEAN CORPUSCULAR HGB CONC 29.6 g/dl (32.0-36.5); MEAN CORPUSCULAR VOLUME 82.3 fl (80.0-96.0); MONO # 0.3 10^3/uL (0.0-0.8); MONO % 3.6 % (2.0-8.0); NEUTROPHILS # 8.5 10^3/uL (1.5-8.5); NEUTROPHILS % 93.1 % (36.0-66.0); PLATELET COUNT, AUTOMATED 253 10^3/uL (150-450); RED BLOOD COUNT 4.64 10^6/uL (4.30-6.10); WHITE BLOOD COUNT 9.1 10^3/uL (4.0-10.0)
[2023-11-01 20:00] LABS: INR 1.32; PROTHROMBIN TIME 15.9 SECONDS (12.5-14.5)
[2023-11-01 20:01] LABS: PARTIAL THROMBOPLASTIN TIME 30.7 SECONDS (24.8-34.2)
[2023-11-01 20:06] LABS: ALBUMIN 2.9 G/DL (3.2-5.2); ALKALINE PHOSPHATASE 87 U/L (46-116); ALT/SGPT 14 U/L (7.0-40); AST/SGOT 32 U/L (<34); BILIRUBIN,DIRECT 0.3 MG/DL (<0.4); BILIRUBIN,TOTAL 0.6 MG/DL (0.3-1.2); BLOOD UREA NITROGEN 14 MG/DL (9-23); CARBON DIOXIDE LEVEL 32 MMOL/L (20-31); CHLORIDE LEVEL 103 MMOL/L (98-107); CK-MB VALUE MASS < 1.0 NG/ML (<3.6); CREATININE FOR GFR 0.43 MG/DL (0.70-1.30); GLOMERULAR FILTRATION RATE > 60.0 (>42); GLUCOSE, FASTING 134 MG/DL (74-106); POTASSIUM SERUM 5.3 MMOL/L (3.5-5.1); SODIUM LEVEL 139 MMOL/L (136-145); TOTAL PROTEIN 6.5 G/DL (5.7-8.2)
[2023-11-01 20:10] LABS: FREE T4 1.01 NG/DL (0.89-1.76); THYROID STIMULATING HORMONE 1.268 uIU/ML (0.55-4.78)
[2023-11-01 20:23] LABS: CPK CREATINE PHOSPHOKINASE 34 U/L (46-171); MB/CK RELATIVE INDEX 2.94 (< OR =4)
[2023-11-01] MEDS ORDERED: HOME MED LIST COMPLETE! XX SCH (21:25)
[2023-11-01] MEDS ORDERED: ACETAMINOPHEN TAB 650MG DOSE (2X325MG) PO PRN (21:30)
[2023-11-01] MEDS ORDERED: ONDANSETRON 4MG 2ML VIAL IV PRN (21:30)
[2023-11-01] MEDS ORDERED: SCOPOLAMINE 1MG TRANSDERMAL PATCH TOP PRN (21:30)
[2023-11-01] MEDS ORDERED: ATROPINE SULFATE 1% OPHTH SOLN 2ML BTL SL PRN (21:30)
[2023-11-01] MEDS ORDERED: LORazepam 2 MG/ML 1ML VIAL IV PRN (21:30)
[2023-11-01] MEDS ORDERED: BISACODYL 10MG SUPP PR PRN (21:30)
[2023-11-01 22:30] VITALS: BP 105/74; TEMP 97.5
[2023-11-02 00:16] VITALS: O2SAT 4
[2023-11-02] MEDS: MORPHINE 30 MG TAB **MSIR PO PRN ×3 (00:16→11:26)
[2023-11-02] MEDS: MORPHINE 10MG/0.5ML ORAL CONCENTRATE SOLUTION U/D SL PRN (19:26)
[2023-11-03] MEDS: MORPHINE 10MG/0.5ML ORAL CONCENTRATE SOLUTION U/D SL PRN (00:32)
[2023-11-03] MEDS: ALBUTEROL 90 MCG/ACT 8GM HFA INHALER INH PRN ×2 (01:21→11:27)
== END 2023-11-03 12:30 ==
LOC: M ED 18:34 → EDBD 18:34 → M ED INP 21:26 → M MS5PR 22:41
PROVIDERS: ADMIT Family Medicine; ATTEND Internal Medicine
DX: C34.90 Malignant neoplasm of unspecified part of unspecified bronchus or lung (principal); J96.91 Respiratory failure, unspecified with hypoxia; J90 Pleural effusion, not elsewhere classified; Z51.5 Encounter for palliative care; R13.10 Dysphagia, unspecified; R63.8 Other symptoms and signs concerning food and fluid intake; E87.5 Hyperkalemia; D63.0 Anemia in neoplastic disease; R06.02 Shortness of breath; R53.1 Weakness; J44.9 Chronic obstructive pulmonary disease, unspecified; I10 Essential (primary) hypertension; C61 Malignant neoplasm of prostate; F17.210 Nicotine dependence, cigarettes, uncomplicated
CPT/HCPCS: 80048; 80076; 82550; 82553; 83880; 84439; 84443; 84484; 85025; 85610; 85730; 87486; 87581; 87633; 87635; 87798; 93005; 93041; 94640; 94760; 99285; G0378